=== PATIENT | male | born 1995 | race Caucasian/White ===

== ENCOUNTER → 2017-11-28 10:43 | Outpatient (REF) | payer MEDICAID, SELFPAY ==
[2017-11-28 14:01] LABS: Amphetamine/Metha Screen,Urine Negative ng/mL (<1000); Barbiturates Screen,Urine Negative ng/mL (<200); Benzodiazepines Screen,Urine Negative ng/mL (200); Cannabinoid Screen,Urine Negative ng/mL (<50); Cocaine Screen,Urine Negative ng/g (<300); Methadone Screen,Urine Negative ng/mL (<300); Opiate Screen,Urine Negative ng/mL (<300); Phencyclidine Screen,Urine Negative ng/mL (<25)
[2017-11-28 14:07] LABS: Basophils % 0.7 % (0.1-2.0); Eosinophils # 0.1 K/mm3 (0.0-0.4); Eosinophils % 3.5 % (0.1-12.0); Hematocrit 43.8 % (42.0-52.0); Hemoglobin 15.5 g/dL (14.1-18.0); Lymphocytes # 1.1 K/mm3 (0.7-4.5); Lymphocytes % 31.5 K/mm3 (10-50); Mean Corpuscular HGB Conc 35.4 g/dL (31.8-35.4); Mean Corpuscular Hemoglobin 32.4 pg (27.0-31.2); Mean Corpuscular Volume 91.7 fl (80-94); Mean Platelet Volume 10.1 fl (7.4-10.4); Monocytes # 0.2 K/mm3 (0.1-1.0); Monocytes % 6.2 % (1.7-9.3); Neutrophils % 58.1 % (37.0-80.0); Platelet Count 115 K/mm3 (142-424); Red Blood Count 4.78 M/mm3 (4.60-6.20); Red Cell Distribution Width 12.6 % (11.5-17.5); White Blood Count 3.5 K/mm3 (4.8-10.8)
[2017-11-28 15:02] LABS: Alanine Aminotransferase 19 U/L (12-78); Albumin Level 4.5 gm/dL (3.4-5.0); Albumin/Globulin Ratio 1.7 (1.1-1.8); Alkaline Phosphatase 83 U/L (46-116); Anion Gap 11.3 mEq/L (5-15); Aspartate Amino Transferase 14 U/L (15-37); Bilirubin,Total 1.1 mg/dL (0.2-1.0); Blood Urea Nitrogen 12 mg/dL (7-18); Calcium 9.4 mg/dL (8.5-10.1); Carbon Dioxide 29 mmol/L (21.0-32.0); Chloride 106 mmol/L (98-107); Creatinine,Serum 0.97 mg/dL (0.70-1.30); Estimated Glomerular Filt Rate 98 ml/min (>60); Free T4 (Free Thyroxine) 1.15 ng/dl (0.76-1.46); GFR (African American) 118 ML/MIN (>60); Globulin 2.7 gm/dl (1.3-3.2); Glucose 91 mg/dL (74-106); Potassium 4.3 mmoL/L (3.5-5.1); Sodium 142 mmol/L (136-145); Thyroid Stimulating Hormone 0.39 uIU/ml (0.358-3.740); Total Protein,Serum 7.2 gm/dL (6.4-8.2)
[2017-11-29 07:20] LABS: Hep A Ab, IgM Negative (Negative); Hepatitis B Core Antibody IgM Negative (Negative); Hepatitis B Surface Antigen Negative (Negative)
[2017-11-29 13:37] LABS: Hepatitis C Antibody <0.1 s/co ratio (0.0-0.9); Vitamin D 25 Hydroxy 31.6 ng/mL (30.0-100.0)
== END ==
LOC: LAB 10:43
PROVIDERS: Visit Provider Emergency Medicine
DX: R53.83 Other fatigue (principal); F32.9 Major depressive disorder, single episode, unspecified
CPT/HCPCS: 80053; 80074; 80305; 82652; 84439; 84443; 85025

== ENCOUNTER → 2019-04-24 11:08 | Outpatient (CLI) | payer SELFPAY ==
[2019-04-24 11:52] LABS: Apearance,Urine Clear (Clear); Bilirubin,Urine Negative (Negative); Blood, Urine Negative (Negative); Color,Urine Yellow (Yellow); Glucose,Urine (UA) Negative (Negative); Ketones,Urine Negative (Negative); Protein,Urine Negative (Negative); UTC Leukocyte Esterase,Urine Negative (Negative); UTC Nitrate,Urine Negative (Negative); Urobilinogen,Urine 0.2 EU/dl (0.2)
== END ==
PROVIDERS: Visit Provider Nurse Practitioner Family
DX: Z02.4 Encounter for examination for driving license (principal)
CPT/HCPCS: 81003

== ENCOUNTER 2020-07-06 12:45 | Emergency (ER) | payer MEDICAID, SELFPAY ==
[2020-07-06 12:50] VITALS: BP 144/95; PULSE 73; RESP 18; TEMP 36.7; O2SAT 98; BMI 28.2
[2020-07-06 13:09] VITALS: BP 151/95; PULSE 72; O2SAT 99
--- NOTE | 2020-07-06 13:10 | HMH.EDGENADL ---
ED Disposition Clinical Impression: Dry socket Disposition: Home, Self-Care Condition on Discharge: Good Instructions: DI for Dental Pain Additional Instructions: Hughes as prescribed for pain. See your dentist tomorrow as scheduled. Additional instructions for DENTAL PROBLEMS: See a dentist as soon as possible for further evaluation. Return immediately if you have an uncontrollable fever greater than 102 degrees, difficulty breathing or shortness of breath, persistent vomiting, or inability to swallow. Additional instructions for CONTROLLED SUBSTANCES: You have been prescribed a medication that is a controlled substance. Controlled substances include pain medications known as opiates and sedative nerve medications known as benzodiazepines. Tramadol, fioricet, and gabapentin are also controlled substances. Some common opiates include: Codeine (such as Tylenol #3) Hydrocodone (Vicodin, Lortab, Lorcet, Hughes) Oxycodone (Percocet, Percodan, Oxycodone, Oxy IR) Some common benzodiazepines include: Diazepam (Valium) Lorazepam (Ativan) Alprazolam (Xanax) Clonazepam (Klonopin) Oxazepam (Serax) All of these controlled substances are highly addictive and frequently abused. Misuse can and frequently does lead to addiction as well as overdose and . Medication should be stored in a locked cabinet or other secure storage unit. Do not store the medication in a motor vehicle. Short term supplies, 3 days or less, are prescribed because of the highly addictive nature of the medication. Any of the controlled substance medication NOT taken should be disposed of properly and NOT SAVED. The recommended method of disposing of unused medications is: Place the medicines in a sealable plastic bag. If the medicine is a solid, crush it or add water to dissolve it. Add something undesirable (cat litter, coffee grounds, etc.) Dispose of sealed bag in household trash Do not flush or pour unused medicines down a sink or drain. Controlled substances should not be shared, given away or sold. Because of the addictive nature and frequent abuse, these medications are sometimes stolen. These medications should be kept in a safe place where they cannot be stolen. Do not keep them in your car or purse. Lost or stolen prescriptions for controlled substances WILL NOT BE REFILLED in this emergency department, regardless of whether a police report was filed. Prescriptions: Hydrocod/Acet 5/325 mg [Hughes 5/325mg tablet] 1 tab PO Q6HP PRN #10 tab PRN Reason: Pain Transmission Status: Received by [facility] Referrals: Que Morrison MD [Primary Care Provider] - - Critical Care Critical Care Time: No Attestation: On 07/06/20, the high probability of a clinically significant, sudden or life threatening deterioration of the following system(s) required my full and direct attention, intervention and personal management. The time I documented below is in addition to time spent performing reported procedures but includes the following listed in this critical care notation. Medical Decision Making - Medical Records Medical records reviewed: Yes: I reviewed the patient's medical records. - [place] Inquiry Pt receiving controlled substance: Yes [place] was queried for this patient: Yes Reference #:: [id number] Risks and benefits of using a controlled substance: were discussed with pt by me Comment: 2 rxs. Hughes 12 tabs on 07/02/20 and 06/30/20 Vital Signs: 07/06/20 12:50 07/06/20 13:09 07/06/20 13:25 Temperature 98.0 F 98.0 F Temperature Source Oral Oral Pulse Rate 72 Pulse Rate [Radial] 73 72 Respiratory Rate 18 18 Blood Pressure 151/95 H Blood Pressure [Right Arm] 144/95 H 151/95 H Blood Pressure Mean [Right Arm] 111 113 Blood Pressure Source Automatic Cuff Blood Pressure Source [Right Arm] Manual Cuff/ Doppler Automatic Cuff Blood Pressure Position Sitting Blood Pressure Position [Right Arm] S
[2020-07-06 13:25] VITALS: BP 151/95; PULSE 72; RESP 18; TEMP 36.7; O2SAT 98
== END 2020-07-06 13:27 | disposition home or self-care (01) ==
PROVIDERS: Emergency Provider Emergency Medicine; PCP Family Medicine
DX: M27.3 Alveolitis of jaws (principal); F41.8 Other specified anxiety disorders; J45.909 Unspecified asthma, uncomplicated; Z79.899 Other long term (current) drug therapy
CPT/HCPCS: 99282

== ENCOUNTER 2020-10-06 09:35 | Emergency (ER) | payer OTHER, SELFPAY ==
[2020-10-06 09:46] VITALS: BP 161/96; PULSE 83; RESP 20; TEMP 36.7; O2SAT 98; BMI 28.4
--- NOTE | 2020-10-06 09:53 | HMH.EDUTC ---
[facility] [place] Disposition Clinical Impression: Exposure to COVID-19 virus Disposition: Home, Self-Care Condition on Discharge: Good Instructions: Preventing the Spread of Coronavirus Discharge Instructions Additional Instructions: Drink plenty of fluids. Take tylenol for pain or fever. Return if you begin to have difficulty breathing. Follow up with your regular doctor. GO TO THE ER FOR ANY WORSENING SYMPTOMS Referrals: Que Morrison MD [Primary Care Provider] - Forms: Work/School Release Time of Disposition: 09:55 Medical Decision Making - Medical Records Medical records reviewed: No: I reviewed the patient's medical records. - [place] Inquiry Pt receiving controlled substance: No Vital Signs: 10/06/20 09:46 10/06/20 09:55 Temperature 98.0 F 98.0 F Temperature Source Oral Pulse Rate 83 Pulse Rate [Right Brachial] 83 Respiratory Rate 20 20 Blood Pressure 161/96 H Blood Pressure [Right Arm] 161/96 H Blood Pressure Mean [Right Arm] 117 Blood Pressure Source [Right Arm] Automatic Cuff Blood Pressure Position [Right Arm] Sitting 02 Sat by Pulse Oximetry 98 Oxygen Delivery Method Room Air Orders (Tests/Meds): ORDERS Category Date Time Status Covid-19 Nasal PCR Sendout Ronald Routine Lab 10/06/20 09:[address] [facility] [place] HPI - General Stated complaint: exposure to covid Time Seen by Provider: 10/06/20 09:53 Mode of Arrival: Ambulatory Source of Information: Patient Limitations: No Limitations Description of Symptoms (Recalled from Triage Doc. by RN): PATIENT REQUESTING COVID TEST D/T EXPOSURE; DENIES SYMPTOMS HEENT Symptoms (Recalled from RN notes): No Resp Symptoms (Recalled from RN notes): No Skin Symptoms (Recalled from RN notes): No MS Symptoms (Recalled from RN notes): No Functional Status (Recalled from RN notes): WNL - History of Present Illness Provider Complaint: He states that his mother has covid. He has been around her a lot. He denies any symptoms. - Related Data Previous Rx's Medication Instructions Recorded clonazepam 0.5 mg tablet 0.5 mg PO BID #60 tab 08/08/18 escitalopram oxalate 10 mg tablet 10 mg PO QDAY #30 tab 08/08/18 levoFLOXacin [Levaquin 500mg 500 mg PO DAILY #7 tab 07/27/19 tab] Azithromycin [Z-Stanley 250mg Tab*] 250 mg PO UD DOSE PK #6 tab 11/01/19 Brompheniramine/Pseudoephed/Dm 5 ml PO Q6HP PRN #240 syrup 11/01/19 [Bromfed Dm Cough Syrup] Ondansetron [Zofran 4mg ODT] 4 mg PO Q8HP PRN #20 tab.rapdis 11/01/19 Oseltamivir Phosphate [Tamiflu 75 mg PO BID #10 cap 11/01/19 75mg Capsule] Hydrocod/Acet 5/325 mg [[place] 1 tab PO Q6HP PRN #10 tab 07/06/20 5/325mg tablet] Allergies Allergy/AdvReac Type Severity Reaction Status Date / Time Iodinated Contrast Media Allergy Intermediate I-HIVES Verified 08/08/18 08:30 [Iodinated Contrast Media - IV Dye] - Worker's Comp Is this a Worker's Comp case?: No [facility] History - Hepatitis A Screen Drug use history?: No High risk sexual behaviors?: No History of sexually transmitted infection?: No Currently employed?: No Childcare worker?: No Do you have indoor plumbing?: Yes Do you have electricity?: Yes Attestation statement:: This patient has been screened for Hepatitis A risk factors. I have reviewed the patient's past medical history: Yes Medical History: Reports:: Anxiety, Asthma, Depression Denies:: Cancer, Diabetes Mellitus Type 1, Diabetes Mellitus Type 2, MRSA Other Surgeries: Yes: Other. No: Organ Transplant Amputation: No Fractures: Yes Comment: screws in left leg and left femur - Social History Smoking Status: Never smoker Alcohol Intake: never Substance Use Type: denies use Occupational Status: other Housing: house - Psychiatric History Pschychiatric History:: Reports:: Anxiety, Depression Family Hx:: Hypertension, Cancer ROS Obtained: Yes All systems reviewed & no additional complaints - Constitutional Constitutional: Reports system revi
[2020-10-06 09:55] VITALS: BP 161/96; PULSE 83; RESP 20; TEMP 36.7; O2SAT 98
[2020-10-07 13:16] LABS: Covid-19 Nasal PCR Sendout Lex NOT DETECTED
== END 2020-10-06 09:58 | disposition home or self-care (01) ==
PROVIDERS: Emergency Provider Nurse Practitioner Family; PCP Family Medicine
DX: Z20.828 Contact with and (suspected) exposure to other viral communicable diseases (principal); F41.8 Other specified anxiety disorders; J45.909 Unspecified asthma, uncomplicated; Z79.899 Other long term (current) drug therapy
CPT/HCPCS: 99201; U0004

== ENCOUNTER 2021-01-22 21:22 | Emergency (ER) | payer OTHER, SELFPAY ==
[2021-01-22 21:24] VITALS: BP 145/76; PULSE 64; RESP 17; TEMP 36.8; O2SAT 98; BMI 27.3
[2021-01-22 21:49] VITALS: BMI 27.3
--- NOTE | 2021-01-22 22:00 | CT_ITS ---
PROCEDURE: CT ABDOMEN PELVIS W CON CLINICAL INDICATION: nausea, vomiting, diarrhea COMPARISON: CT CT ABDOMEN PELVIS WO CON from 07/26/2019 TECHNIQUE: IV Contrast: 75ML Isovue 370 Oral Contrast None Axial images obtained with sagittal and coronal reformats. All CT scans at the facility use one or more dose reduction, viz: automated exposure control, ma/kV adjustment per patient size (including targeted exams where dose is matched to indication, i.e. head), or iterative reconstruction technique. FINDINGS: LOWER THORAX: No acute finding ABDOMEN & PELVIS: The liver has an unremarkable appearance. There is splenomegaly at 16 cm. The gallbladder, adrenal glands, and pancreas appear unremarkable. No intestinal obstruction or free air. No evidence of appendicitis or diverticulitis. Scattered mildly prominent mesenteric lymph nodes are present. There is a mild amount of retained colonic feces. Small bowel gas pattern is unremarkable. No pelvic mass or abnormal fluid collection. Artifact is present from prior ORIF of the left proximal femur IMPRESSION: 1. Splenomegaly. 2. Mildly prominent mesenteric lymph nodes nonspecific but could be seen with mesenteric adenitis. Dictated by: Casey Centeno MD 01/23/2021 07:16 Casey Centeno MD in OV 01/23/2021 07:16
[2021-01-22 22:13] LABS: Basophils % 0.8 % (0.1-2.0); Eosinophils # 0.1 K/mm3 (0.0-0.4); Eosinophils % 3.7 % (0.1-12.0); Hemoglobin 15.6 g/dL (14.1-18.0); Lymphocytes % 25.5 % (10-50); Mean Corpuscular HGB Conc 34.5 g/dL (31.8-35.4); Mean Corpuscular Hemoglobin 31.4 pg (27.0-31.2); Mean Corpuscular Volume 90.9 fl (80-94); Mean Platelet Volume 8.2 fl (7.4-10.4); Monocytes # 0.3 K/mm3 (0.1-1.0); Monocytes % 8.5 % (1.7-9.3); Neutrophils # 2.4 K/mm3 (1.8-7.8); Neutrophils % 61.6 % (37.0-80.0); Platelet Count 123 K/mm3 (142-424); Red Blood Count 4.95 M/mm3 (4.60-6.20); White Blood Count 3.8 K/mm3 (4.8-10.8)
[2021-01-22 22:15] LABS: C-Reactive Protein 37.1 mg/L (0-4)
[2021-01-22 22:19] VITALS: BP 133/68; PULSE 62; RESP 16; O2SAT 95
--- NOTE | 2021-01-22 22:22 | HMH.EDNVD ---
ED Disposition Clinical Impression: Gastroenteritis, Thrombocytopenia, Splenomegaly Disposition: Home, Self-Care Condition on Discharge: Good Instructions: DI for Nausea -- Adult Additional Instructions: fluids and see pcp for follow up Prescriptions: ondansetron HCL [Zofran 4mg Tab] 4 mg PO TID #21 tab Transmission Status: Pending to [facility] Referrals: Dell Cortes MD [Primary Care Provider] - - Critical Care Critical Care Time: No Attestation: On 01/22/21, the high probability of a clinically significant, sudden or life threatening deterioration of the following system(s) required my full and direct attention, intervention and personal management. The time I documented below is in addition to time spent performing reported procedures but includes the following listed in this critical care notation. Medical Decision Making - Medical Records Medical records reviewed: Yes: I reviewed the patient's medical records. - [place] Inquiry Pt receiving controlled substance: No Vital Signs: 01/22/21 21:24 01/22/21 22:19 Temperature 98.3 F Temperature Source Oral Pulse Rate 62 Pulse Rate [Right Radial] 64 Respiratory Rate 17 16 Blood Pressure 133/68 Blood Pressure [Right Arm] 145/76 H Blood Pressure Mean [Right Arm] 99 Blood Pressure Source [Right Arm] Automatic Cuff Blood Pressure Position [Right Arm] Supine 02 Sat by Pulse Oximetry 98 95 Oxygen Delivery Method Room Air Room Air - Lab Data Lab results reviewed: Yes: I reviewed the patient's lab results. Lab Results 01/22/21 21:35: WBC 3.8 L, RBC 4.95, Hgb 15.6, Hct 45.0, MCV 90.9, MCH 31.4 H, MCHC 34.5, RDW 13.0, Plt Count 123 L, MPV 8.2, Neut % (Auto) 61.6, Lymph % (Auto) 25.5, [place] % (Auto) 8.5, Eos % (Auto) 3.7, Baso % (Auto) 0.8, Neut # (Auto) 2.4, Lymph # (Auto) 1.0, [place] # (Auto) 0.3, Eos # (Auto) 0.1, Baso # (Auto) 0.0, ESR 16 H 01/22/21 21:35: C-Reactive Protein 37.1 H, Procalcitonin 0.300 01/22/21 21:35: Sodium 139, Potassium 3.8, Chloride 104, Carbon Dioxide 27, Anion Gap 11.8, BUN 16, Creatinine 0.90, Estimated Creat Clear 142, Estimated GFR 104, Est GFR ( Amer) 125, Glucose 114 H, Calcium 9.5, Total Bilirubin 0.7, AST 46, ALT 42, Alkaline Phosphatase 87, Total Protein 7.2, Albumin 4.5, Globulin 2.7, Albumin/Globulin Ratio 1.7 01/22/21 21:35: Amylase 43, Lipase 43 Result diagrams: 01/22/21 21:35 01/22/21 21:35 Orders (Tests/Meds): ED MEDICATIONS Generic Name Dose Route Start Last Admin Trade Name Freq PRN Reason Stop Dose Admin Sodium Chloride 1,000 mls @ 999 mls/hr 01/22/21 22:00 01/22/21 21:51 Sod Chlor 0.9% 1000ml Bag IV 01/22/21 23:00 999 mls/hr .Q1H1M JERZY Administration Sodium Chloride 1,000 mls @ 999 mls/hr 01/22/21 22:45 01/22/21 22:51 Sod Chlor 0.9% 1000ml Bag IV 01/22/21 23:45 999 mls/hr .Q1H1M JERZY Administration Discontinued Medications Generic Name Dose Route Start Last Admin Trade Name Freq PRN Reason Stop Dose Admin Methylprednisolone Sodium Succinate 125 mg 01/22/21 22:34 01/22/21 22:35 Methylprednisolone Sod Succ 125mg Vial IV 01/22/21 22:35 125 mg ONCE ONE Administration Ondansetron HCl 4 mg 01/22/21 21:51 01/22/21 21:52 Ondansetron 4mg/2ml Vial IV 01/22/21 21:52 4 mg ONCE ONE Administration ORDERS Category Date Time Status CT abdomen pelvis w con Stat Cat Scan 01/22/21 22:00 Ordered Diarrhea 23 Panel, PCR Stat Lab 01/22/21 21:59 Ordered Peripheral Smear Review Routine Lab 01/22/21 23:49 Ordered UA [Urinalysis and Microscopic] Stat Lab 01/22/21 23:35 Received - CT Data CT Scan: Abdomen, Pelvis Time Received: 23:[address] Reviewed: Yes: I have viewed the radiologist's interpretation Preliminary Findings: Abnormal (see report ) Medical Decision Narrative: has nonspecific gastroenteritis with nl infl markers and unable to give sample at this time - has low plt ct and splenomegaly Nausea/Vomiting/Diarrhea HPI - G
[2021-01-22 22:23] LABS: Chloride 104 mmol/L (98-107); Sodium 139 mmol/L (136-145)
[2021-01-22 22:24] LABS: Potassium 3.8 mmoL/L (3.5-5.1)
[2021-01-22 22:26] LABS: Alanine Aminotransferase 42 U/L (12-78); Albumin Level 4.5 g/dl (3.5-5.0); Albumin/Globulin Ratio 1.7 (1.1-1.8); Alkaline Phosphatase 87 U/L (38-126); Anion Gap 11.8 mEq/L (5-15); Aspartate Amino Transferase 46 U/L (17-59); Bilirubin,Total 0.7 mg/dl (0.2-1.3); Blood Urea Nitrogen 16 mg/dl (9-20); Carbon Dioxide 27 mmol/L (22.0-30.0); Creatinine Clearance Estimated 142 mL/min (50-200); Estimated Glomerular Filt Rate 104 ml/min (>60); GFR (African American) 125 ML/MIN (>60); Globulin 2.7 g/dL (1.3-3.2); Total Protein,Serum 7.2 g/dl (6.3-8.2)
[2021-01-22 22:27] LABS: Calcium 9.5 mg/dl (8.4-10.2); Glucose 114 mg/dl (74-100)
[2021-01-22 22:47] LABS: Amylase 43 U/L (30-110)
[2021-01-22 22:48] LABS: Lipase 43 U/L (23-300)
[2021-01-22 22:53] LABS: Erythrocyte Sedimentation Rate 16 mm/hr (0-15)
[2021-01-22 23:43] LABS: Microscopic, Urine URINE MICROSCOPIC (MICROSCOPIC)
[2021-01-22 23:49] LABS: Appearance,Urine CLEAR (Clear); Blood, Urine Negative (Negative); Color,Urine YELLOW (Yellow); Glucose,Urine (UA) Negative (Negative); Ketones,Urine Negative (Negative); Leukocyte Esterase,Urine Negative (Negative); Nitrate,Urine Negative (Negative); Protein,Urine Negative (Negative); Specific Gravity, Urine <= 1.005 (1.005-1.030)
[2021-01-23 00:02] LABS: Bilirubin,Urine Negative (Negative)
[2021-01-23 00:11] VITALS: BP 125/84; PULSE 67; RESP 16; TEMP 36.7; O2SAT 98
[2021-01-23 00:38] LABS: WBC,Urine Occasional #/hpf (0-3)
[2021-01-24 23:54] LABS: Peripheral Smear Review Scanned Result
== END 2021-01-23 00:14 | disposition home or self-care (01) ==
PROVIDERS: Emergency Provider Emergency Medicine; PCP Emergency Medicine
DX: K52.9 Noninfective gastroenteritis and colitis, unspecified (principal); D69.6 Thrombocytopenia, unspecified; R16.1 Splenomegaly, not elsewhere classified; F41.8 Other specified anxiety disorders; J45.909 Unspecified asthma, uncomplicated; Z87.891 Personal history of nicotine dependence
CPT/HCPCS: 74177; 80053; 81001; 82150; 83690; 84145; 85025; 85651; 86140; 96365; 96366; 96375; 99283; J2405; Q9967

== ENCOUNTER → 2021-02-26 10:59 | Outpatient (CLI) | payer OTHER, SELFPAY ==
[2021-02-26 11:18] LABS: Eosinophils # 0.4 K/mm3 (0.0-0.4); Eosinophils % 9.3 % (0.1-12.0); Hematocrit 45.7 % (42.0-52.0); Hemoglobin 15.8 g/dL (14.1-18.0); Lymphocytes # 1.8 K/mm3 (0.7-4.5); Lymphocytes % 40.5 % (10-50); Mean Corpuscular HGB Conc 34.5 g/dL (31.8-35.4); Mean Corpuscular Hemoglobin 31.9 pg (27.0-31.2); Mean Corpuscular Volume 92.4 fl (80-94); Mean Platelet Volume 8.5 fl (7.4-10.4); Monocytes # 0.3 K/mm3 (0.1-1.0); Neutrophils # 1.8 K/mm3 (1.8-7.8); Neutrophils % 42.2 % (37.0-80.0); Platelet Count 127 K/mm3 (142-424); Red Blood Count 4.95 M/mm3 (4.60-6.20); Red Cell Distribution Width 13.3 % (11.5-17.5); White Blood Count 4.4 K/mm3 (4.8-10.8)
[2021-02-26 11:50] LABS: Chloride 102 mmol/L (98-107); Sodium 138 mmol/L (136-145)
[2021-02-26 11:53] LABS: Alanine Aminotransferase 37 U/L (12-78); Albumin Level 4.6 g/dl (3.5-5.0); Albumin/Globulin Ratio 2.2 (1.1-1.8); Alkaline Phosphatase 78 U/L (38-126); Aspartate Amino Transferase 43 U/L (17-59); Bilirubin,Total 0.5 mg/dl (0.2-1.3); Blood Urea Nitrogen 10 mg/dl (9-20); Carbon Dioxide 25 mmol/L (22.0-30.0); Estimated Glomerular Filt Rate 92 ml/min (>60); GFR (African American) 111 ML/MIN (>60); Globulin 2.1 g/dL (1.3-3.2); Total Protein,Serum 6.7 g/dl (6.3-8.2)
[2021-02-26 11:54] LABS: Calcium 9.7 mg/dl (8.4-10.2); Glucose 84 mg/dl (74-100)
[2021-02-26 13:03] LABS: Folate 5.52 ng/mL; Lactate Dehydrogenase 204 U/L (313-618)
[2021-02-26 14:43] LABS: Vitamin B12 319 pg/mL (239-931)
== END ==
PROVIDERS: Visit Provider Internal Medicine Medical Oncology
DX: D64.9 Anemia, unspecified (principal)
CPT/HCPCS: 36415; 80053; 82607; 82746; 83615; 85025

== ENCOUNTER 2021-03-31 19:59 | Emergency (ER) | payer OTHER, SELFPAY ==
[2021-03-31 20:05] VITALS: BP 129/82; PULSE 63; RESP 19; TEMP 36.6; O2SAT 98; BMI 26.6
--- NOTE | 2021-03-31 20:27 | HMH.EDUTC ---
[facility] [place] Disposition Clinical Impression: Contact dermatitis Qualifiers: Contact dermatitis type: unspecified Contact dermatitis trigger: unspecified trigger Qualified Code(s): L25.9 - Unspecified contact dermatitis, unspecified cause Disposition: Home, Self-Care Condition on Discharge: Good Instructions: Poisonous Plants: [place], [place], and [place]: Beware the Oils, Poison [place], Poison [place], Poison [place], DI for Contact Dermatitis Additional Instructions: Try to avoid what ever you was exposed to that may have caused the rash Start oral Steriods tomorrow Return if needed Over the counter Benadryl may help with itching and rash Follow up with Family Doctor if no improvement or any worsening of symptoms Straight to ER if any life threatening symptoms Prescriptions: methylPREDNISolone [Medrol 4mg tab] 4 mg PO DIRECTED #21 tab Transmission Status: Received by [facility] Referrals: Dell Cortes MD [Primary Care Provider] - Time of Disposition: 20:42 Medical Decision Making - [place] Inquiry Pt receiving controlled substance: No [place] was queried for this patient: No Vital Signs: 03/31/21 20:05 03/31/21 20:47 Temperature 97.8 F 97.8 F Temperature Source Oral Pulse Rate 63 Pulse Rate [Right Brachial] 63 Respiratory Rate 19 19 Blood Pressure 129/82 Blood Pressure [Right Arm] 129/82 Blood Pressure Mean [Right Arm] 97 Blood Pressure Source [Right Arm] Automatic Cuff Blood Pressure Position [Right Arm] Sitting 02 Sat by Pulse Oximetry 98 Oxygen Delivery Method Room Air Orders (Tests/Meds): ED MEDICATIONS Discontinued Medications Generic Name Dose Route Start Last Admin Trade Name Artieq PRN Reason Stop Dose Admin Methylprednisolone Sodium Succinate 125 mg 03/31/21 20:31 03/31/21 20:41 Methylprednisolone Sod Succ 125mg Vial IM 03/31/21 20:32 125 mg ONCE ONE Administration [facility] [place] HPI - General Stated complaint: rash Time Seen by Provider: 03/31/21 20:27 Mode of Arrival: Ambulatory Source of Information: Patient Limitations: No Limitations Description of Symptoms (Recalled from Triage Doc. 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 [employer] and unsure what he may have got into State that he noticed rash on both his arms about 3 days ago and the rash has spread and very itchy States that he is not sure if it may be poison erna or not - Related Data Previous Rx's Medication Instructions Recorded ondansetron HCL [Zofran 4mg Tab] 4 mg PO TID #21 tab 01/22/21 gabapentin 100 mg capsule 100 mg PO HS #30 cap 01/27/21 trazodone 50 mg tablet 50 mg PO HS #30 tab 01/27/21 diclofenac sodium 1 % topical gel 2 g TOPICAL QID #100 g 02/24/21 lidocaine 5 % topical patch 1 patch TOPICAL DAILY #30 each 02/24/21 meloxicam 15 mg tablet 15 mg PO DAILY #30 tab 02/24/21 trazodone 50 mg tablet 50 mg PO HS PRN #90 tab 02/24/21 methylPREDNISolone [Medrol 4mg 4 mg PO DIRECTED #21 tab 03/31/21 tab] Allergies Allergy/AdvReac Type Severity Reaction Status Date / Time No Known Allergies Allergy Verified 02/26/21 09:58 - Worker's Comp Is this a Worker's Comp case?: No [facility] History - Hepatitis A Screen Drug use history?: No High risk sexual behaviors?: No History of sexually transmitted infection?: No Currently employed?: No Childcare worker?: No Do you have indoor plumbing?: Yes Do you have electricity?: Yes Attestation statement:: This patient has been screened for Hepatitis A risk factors. I have reviewed the patient's past medical history: Yes Medical History: Reports:: Anxiety, Asthma, Depression Denies:: Cancer, Diabetes Mellitus Type 1,
[2021-03-31 20:47] VITALS: BP 129/82; PULSE 63; RESP 19; TEMP 36.6
== END 2021-03-31 20:50 | disposition home or self-care (01) ==
PROVIDERS: Emergency Provider Nurse Practitioner; PCP Emergency Medicine
DX: L23.7 Allergic contact dermatitis due to plants, except food (principal); J45.909 Unspecified asthma, uncomplicated; F41.8 Other specified anxiety disorders
CPT/HCPCS: 96372; 99202; G0463

== ENCOUNTER 2021-10-02 21:53 | Emergency (ER) | payer OTHER, SELFPAY ==
[2021-10-02 21:54] VITALS: BP 140/84; PULSE 80; RESP 16; TEMP 36.8; O2SAT 99; BMI 25.8
--- NOTE | 2021-10-02 22:39 | XR_ITS ---
PROCEDURE INFORMATION: Exam: XR Left Knee Exam date and time: 10/02/2021 10:39 PM Age: 26 years old Clinical indication: Pain; Knee; Left; Additional info: Non injury TECHNIQUE: Imaging protocol: XR Left knee. Views: 3 views. COMPARISON: No relevant prior studies available. FINDINGS: Bones/joints: The femoral casandra is in place. No complicating features. No malalignment. No fracture. Soft tissues: Some osseous appearing calcification seen above the greater trochanter could represent some heterotopic bone. IMPRESSION: No evidence of acute osseous abnormality
--- NOTE | 2021-10-02 22:39 | XR_ITS ---
PROCEDURE INFORMATION: Exam: XR Left Femur Exam date and time: 10/02/2021 10:39 PM Age: 26 years old Clinical indication: Pain; Hip and thigh; Left; Prior surgery; Surgery date: 6+ months; Surgery type: Femoral casandra; Additional info: Pain, non injury TECHNIQUE: Imaging protocol: XR Left femur. Views: 2 views. COMPARISON: CT ABDOMEN PELVIS W CON 01/22/2021 10:27 PM FINDINGS: Bones/joints: The femoral casandra is in place. No complicating features. No malalignment. No fracture. Soft tissues: Some osseous appearing calcification seen above the greater trochanter could represent some heterotopic bone. IMPRESSION: No evidence of acute osseous abnormality
--- NOTE | 2021-10-02 22:55 | HMH.EDEXTP ---
ED Disposition Clinical Impression: Knee pain, left Qualifiers: Chronicity: acute Qualified Code(s): M25.562 - Pain in left knee Disposition: Home, Self-Care Condition on Discharge: Good Instructions: DI for Knee Pain Additional Instructions: see pcp for follow up and ortho Prescriptions: Meloxicam [Mobic 15 mg tab] 15 mg PO DAILY #10 tab Transmission Status: Pending to [facility] Referrals: Dell Cortes MD [Primary Care Provider] - Kasi Curran JR, MD [Physician] - - Critical Care Critical Care Time: No Attestation: On 10/02/21, the high probability of a clinically significant, sudden or life threatening deterioration of the following system(s) required my full and direct attention, intervention and personal management. The time I documented below is in addition to time spent performing reported procedures but includes the following listed in this critical care notation. Medical Decision Making - Medical Records Medical records reviewed: Yes: I reviewed the patient's medical records. - [place] Inquiry Pt receiving controlled substance: No Vital Signs: 10/02/21 21:54 Temperature 98.2 F Temperature Source Oral Pulse Rate [Right] 80 Respiratory Rate 16 Blood Pressure [Right Arm] 140/84 Blood Pressure Mean [Right Arm] 102 Blood Pressure Source [Right Arm] Automatic Cuff 02 Sat by Pulse Oximetry 99 Oxygen Delivery Method Room Air Orders (Tests/Meds): ORDERS Category Date Time Status XR femur LT 2V Stat Exams 10/02/21 22:39 Taken XR knee LT 3V Stat Exams 10/02/21 22:39 Taken - Radiology Data #1 Image(s): Femur, Knee Image Reviewed: Yes I reviewed the patient's radiology image Preliminary Findings: No Fracture Seen (s/p orif) Medical Decision Narrative: please see pcp and ortho for follow up Extremity Problem HPI - General Chief complaint: Extremity Problem,Nontraumatic Stated complaint: left knee pain Time Seen by Provider: 10/02/21 22:00 Mode of Arrival: Family Vehicle Source of Information: Patient, Medical Record Limitations: No Limitations Description of Symptoms (Recalled from ER Triage Doc. by RN): Pt c/o Left knee pain. Pt reports the pain began ~ 4days ago. He has tried hot shower, Motrin, ice pack, and rest but none of these have helped. Pt reports he had a casandra and screws placed 12 yrs ago. Pt's mother is concerned a screw has migrated. He denies any fever, chills, redness, or swelling to knee. Pt reports the pain is worse when he walks. Pt states feels like it is grinding glass on top of my knee up my thigh . He denies any trauma or falls recently. Peipheral pulses 2+, no edema or redness noted. - History of Present Illness HPI Narrative: atraumatic lt knee pain over the last few days - pain with mov and wt bearing - no hip pain-no fever or other c/o MD Complaint: extremity pain Onset (ago): day(s) Consistency: constant Location: left, knee Exacerbating factors: range of motion, weight bearing Associated symptoms: denies other symptoms - Related Data Previous Rx's Medication Instructions Recorded trazodone 50 mg tablet 50 mg PO HS PRN #90 tab 02/24/21 Meloxicam [Mobic 15 mg tab] 15 mg PO DAILY #10 tab 10/02/21 Allergies Allergy/AdvReac Type Severity Reaction Status Date / Time No Known Allergies Allergy Verified 02/26/21 09:58 [facility] History - Hepatitis A Screen Drug use history?: No High risk sexual behaviors?: No History of sexually transmitted infection?: No Currently employed?: No Childcare worker?: No Do you have indoor plumbing?: Yes Do you have electricity?: Yes Attestation statement:: This patient has been screened for Hepatitis A risk factors. I have reviewed the patient's past medical history: Yes Medical History: Reports:: Anxiety, Asthma, Depression Denies:: Cancer, Diabetes Mellitus Type 1, Diabetes Mellitus Type 2, MRSA Other Surgeries: Yes: Other. No: Organ Transplant Amputation: No Fract
[2021-10-02 23:16] VITALS: BP 134/75; PULSE 79; RESP 16; TEMP 36.8; O2SAT 99
== END 2021-10-02 23:17 | disposition home or self-care (01) ==
PROVIDERS: Emergency Provider Emergency Medicine; PCP Emergency Medicine
DX: M25.562 Pain in left knee (principal); F41.8 Other specified anxiety disorders; J45.909 Unspecified asthma, uncomplicated
CPT/HCPCS: 73552; 73562; 99282

== ENCOUNTER 2021-11-17 14:47 | Emergency (ER) | payer OTHER, SELFPAY ==
[2021-11-17 15:59] VITALS: BP 143/88; PULSE 102; RESP 19; TEMP 37.7; O2SAT 98; BMI 27.4
--- NOTE | 2021-11-17 16:09 | HMH.EDUTC ---
[facility] [place] Disposition Clinical Impression: Viral upper respiratory illness Disposition: Home, Self-Care Condition on Discharge: Good Instructions: DI for Fever (Symptom) -- Adult, DI for COVID-19 (Suspected or Confirmed ), Preventing the Spread of Coronavirus Discharge Instructions Additional Instructions: *Monitor Temp, Over the counter Motrin or Tylenol as directed/as needed Tylenol every 4 hours and Motrin every 6 hours (as long as your family doctor has told you that you can take it) for fever or pain. and straight to ER if unable to lower temp less than 101.0 after medication given *Warm salt water gargles may help to soothe the throat *Throat Lozenges *Warm fluids like tea with honey may help to soothe the throat *Sleep elevated *Humidifier/Vaporizer *Bromfed may cause drowsiness. Know how it effects you (your child) before driving, caring for small child, or sending your child to school. Not other antihistamines/allergy medications while taking bromfed Follow up IMMEDIATELY for new or worsening symptoms or no Noticeable improvement over the next 48-72 hours. 911 for difficulty breathing or swallowing You were tested for today for COVID19 your test result should be back in the next 24-48 hours, you check your results on the [facility] my health portal if you have trouble logging on or seeing your results you may call You was given a handout with instructions for Self Quarantine and Self isolation for while you wait on test results and what to do if they are positive If you are positive the Health Dept will be contacting you also Make sure to take your Vitamins Vit. C Vit D and Zinc if you can take them Prescriptions: Brompheniramine/Pseudoephed/Dm [Bromfed Dm Cough Syrup] 5 - 10 ml PO Q46H PRN #200 ml PRN Reason: Cough Transmission Status: Pending to [facility] Ondansetron [Zofran 4mg ODT] 4 mg PO TIDP PRN #10 tab PRN Reason: Nausea Transmission Status: Pending to [facility] Referrals: Dell Cortes MD [Primary Care Provider] - As needed Forms: Work/School Release Time of Disposition: 16:18 Medical Decision Making - [place] Inquiry Pt receiving controlled substance: No [place] was queried for this patient: No Vital Signs: 11/17/21 15:59 Temperature 99.8 F H Temperature Source Oral Pulse Rate [Right Radial] 102 H Respiratory Rate 19 Blood Pressure [Right Arm] 143/88 H Blood Pressure Mean [Right Arm] 106 Blood Pressure Source [Right Arm] Automatic Cuff Blood Pressure Position [Right Arm] Sitting 02 Sat by Pulse Oximetry 98 Oxygen Delivery Method Room Air - Lab Data Lab results reviewed: Yes: I reviewed the patient's lab results. Orders (Tests/Meds): ORDERS Category Date Time Status Covid-19 Nasal PCR ([facility]) Routine Lab 11/17/21 15:50 Received [facility] [place] HPI - General Stated complaint: h/a, fever Time Seen by Provider: 11/17/21 16:09 Mode of Arrival: Ambulatory Source of Information: Patient Limitations: No Limitations Description of Symptoms (Recalled from Triage Doc. by RN): C/O fever, bodyaches, nausea, FALCON since last night HEENT Symptoms (Recalled from RN notes): Yes (FALCON) Resp Symptoms (Recalled from RN notes): No Skin Symptoms (Recalled from RN notes): No MS Symptoms (Recalled from RN notes): Yes (bodyaches) Functional Status (Recalled from RN notes): n/a - History of Present Illness Provider Complaint: Patient states that he started feeling bad last night States that he was having chills all night and his said he felt hot to the touch States that today he was still feeling achy all over with headache, chills, bodyaches and nausea so he came in to get checked for the flu and COVID - Related Data Previous Rx's Medication Instructions Recorded trazodone 50 mg tablet 50 mg PO HS PRN #90 tab 02/24/21 Meloxicam [Mobic 15 mg tab] 15 mg PO DAILY #10 tab 10/02/21 Brompheniramine/Pseudoephed/Dm 5 - 10 ml PO Q46H PRN #200 ml 11/17/21 [Bromfed Dm Cough Syrup]
[2021-11-17 16:11] LABS: UTC Influenza A Antigen Negative (Negative)
[2021-11-17 16:12] LABS: UTC Influenza B Antigen Negative (Negative)
[2021-11-17 16:23] VITALS: BP 143/88; PULSE 102; RESP 19; TEMP 37.7; O2SAT 98
== END 2021-11-17 16:24 | disposition home or self-care (01) ==
PROVIDERS: Emergency Provider Nurse Practitioner; PCP Emergency Medicine
DX: U07.1 COVID-19 (principal); J06.9 Acute upper respiratory infection, unspecified
CPT/HCPCS: 87804; 99202; C9803; G0463; U0003; U0005

== ENCOUNTER 2022-02-13 19:25 | Emergency (ER) | payer OTHER, SELFPAY ==
[2022-02-13 20:25] VITALS: BP 169/98; PULSE 108; RESP 16; TEMP 37.1; O2SAT 96; BMI 26.6
[2022-02-13 20:33] LABS: UTC Influenza A Antigen Positive (Negative); UTC Influenza B Antigen Negative (Negative)
[2022-02-13 20:41] VITALS: BP 169/98; PULSE 108; RESP 16; TEMP 37.1
--- NOTE | 2022-02-13 20:47 | HMH.EDUTC ---
[facility] [place] Disposition Clinical Impression: Influenza A Disposition: Home, Self-Care Condition on Discharge: Good Instructions: Influenza, DI for Influenza -- Adult Additional Instructions: Drink plenty of fluids. Take tylenol or ibuprofen for pain or fever. Take the medications as directed. Follow up with your regular doctor. GO TO THE ER FOR ANY WORSENING SYMPTOMS The cough medication (promethazine dm) will make you drowsy, so don't drive or operate heavy machinery after taking it. Prescriptions: Promethazine/Dextromethorphan [Promethazine-Dm Syrup] 5 ml PO Q6HP PRN #240 ml PRN Reason: Cough Transmission Status: Received by [facility] Ondansetron [Zofran 4mg ODT] 4 mg PO Q8HP PRN #12 tab PRN Reason: Nausea Transmission Status: Received by [facility] Oseltamivir Phosphate [Tamiflu 75mg Capsule] 75 mg PO BID #10 cap Transmission Status: Received by [facility] Referrals: Dell Cortes MD [Primary Care Provider] - Time of Disposition: 21:09 Medical Decision Making - Medical Records Medical records reviewed: No: I reviewed the patient's medical records. - [place] Inquiry Pt receiving controlled substance: No Vital Signs: 02/13/22 20:25 02/13/22 20:41 Temperature 98.8 F 98.8 F Temperature Source Oral Pulse Rate 108 H Pulse Rate [Left] 108 H Respiratory Rate 16 16 Blood Pressure 169/98 H Blood Pressure [Right Arm] 169/98 H Blood Pressure Mean [Right Arm] 121 02 Sat by Pulse Oximetry 96 - Lab Data Lab results reviewed: Yes: I reviewed the patient's lab results. Lab Results 02/13/22 20:32: Influenza Type A Ag Positive A, Influenza Type B Ag Negative [facility] [place] HPI - General Stated complaint: fever Time Seen by Provider: 02/13/22 20:48 Mode of Arrival: Ambulatory Source of Information: Patient Limitations: No Limitations Description of Symptoms (Recalled from Triage Doc. by RN): pt c/o a fever and fatigue since last night. HEENT Symptoms (Recalled from RN notes): No Resp Symptoms (Recalled from RN notes): No Skin Symptoms (Recalled from RN notes): No MS Symptoms (Recalled from RN notes): No Functional Status (Recalled from RN notes): wnl - History of Present Illness Provider Complaint: He states that since yesterday he has been feeling bad. Today, he has ran a fever up to 101. He has a dry cough and he has had nausea and body aches. - Related Data Previous Rx's Medication Instructions Recorded trazodone 50 mg tablet 50 mg PO HS PRN #90 tab 02/24/21 Meloxicam [Mobic 15 mg tab] 15 mg PO DAILY #10 tab 10/02/21 Brompheniramine/Pseudoephed/Dm 5 - 10 ml PO Q46H PRN #200 ml 11/17/21 [Bromfed Dm Cough Syrup] Ondansetron [Zofran 4mg ODT] 4 mg PO TIDP PRN #10 tab 11/17/21 Ondansetron [Zofran 4mg ODT] 4 mg PO Q8HP PRN #12 tab 02/13/22 Oseltamivir Phosphate [Tamiflu 75 mg PO BID #10 cap 02/13/22 75mg Capsule] Promethazine/Dextromethorphan 5 ml PO Q6HP PRN #240 ml 02/13/22 [Promethazine-Dm Syrup] Allergies Allergy/AdvReac Type Severity Reaction Status Date / Time No Known Allergies Allergy Verified 02/26/21 09:58 - Worker's Comp Is this a Worker's Comp case?: No [facility] History - Hepatitis A Screen Drug use history?: No High risk sexual behaviors?: No History of sexually transmitted infection?: No Currently employed?: No Childcare worker?: No Do you have indoor plumbing?: Yes Do you have electricity?: Yes Attestation statement:: This patient has been screened for Hepatitis A risk factors. I have reviewed the patient's past medical history: Yes Medical History: Reports:: Anxiety, Asthma, Depression Denies:: Cancer, Diabetes Mellitus Type 1, Diabetes Mellitus Type 2, MRSA Other Surgeries: Yes: Other. No: Organ Transplant Amputation: No Fractures: Yes Comment: screws in left leg and left femur - Social History Smoking Status: Never smoker Tobacco Type: smokeless tobacco # Packs/Day (cigarette
== END 2022-02-13 21:19 | disposition home or self-care (01) ==
PROVIDERS: Emergency Provider Nurse Practitioner Family; PCP Emergency Medicine
DX: J10.1 Influenza due to other identified influenza virus with other respiratory manifestations (principal); R53.82 Chronic fatigue, unspecified; J45.909 Unspecified asthma, uncomplicated; F32.A Depression, unspecified; F41.9 Anxiety disorder, unspecified; F17.290 Nicotine dependence, other tobacco product, uncomplicated; Z82.49 Family history of ischemic heart disease and other diseases of the circulatory system; Z80.9 Family history of malignant neoplasm, unspecified
CPT/HCPCS: 87804; 99213; G0463

== ENCOUNTER 2022-06-08 19:40 | Emergency (ER) | payer OTHER, SELFPAY ==
[2022-06-08 19:42] VITALS: BP 143/99; PULSE 83; RESP 16; TEMP 36.8; O2SAT 100; BMI 27.4
--- NOTE | 2022-06-08 19:54 | HMH.EDGENADL ---
ED Disposition Clinical Impression: Abscess Disposition: Home, Self-Care Condition on Discharge: Good Instructions: DI for Skin Abscess Additional Instructions: You have been evaluated for abscess on the left leg. Please keep packing in until it falls out, about 24 to 48 hours. Wound with warm soapy water twice daily. Take Bactrim as prescribed. Follow-up with your primary care doctor for wound recheck in the next few days. Return to the emergency department at once for any new or worsening symptoms, fevers, wound drainage, spreading redness, any other concerns. Prescriptions: Sulfamethoxazole/Trimethoprim [Sulfamethoxazole-Tmp Ds Tablet*] 1 tab PO BID #14 tab Transmission Status: Pending to [facility] Referrals: Dell Cortes MD [Primary Care Provider] - Forms: Work/School Release Time of Disposition: 20:52 - Critical Care Critical Care Time: No Attestation: On 06/08/22, the high probability of a clinically significant, sudden or life threatening deterioration of the following system(s) required my full and direct attention, intervention and personal management. The time I documented below is in addition to time spent performing reported procedures but includes the following listed in this critical care notation. Medical Decision Making - Medical Records Medical records reviewed: Yes: I reviewed the patient's medical records. - [place] Inquiry Pt receiving controlled substance: No Vital Signs: 06/08/22 19:42 Temperature 98.3 F Temperature Source Oral Pulse Rate [Left Radial] 83 Respiratory Rate 16 Blood Pressure [Left Arm] 143/99 H Blood Pressure Mean [Left Arm] 113 Blood Pressure Position [Left Arm] Sitting 02 Sat by Pulse Oximetry 100 Oxygen Delivery Method Room Air Orders (Tests/Meds): ED MEDICATIONS Discontinued Medications Generic Name Dose Route Start Last Admin Trade Name Magda PRN Reason Stop Dose Admin Epinephrine HCl 1 mg 06/08/22 19:54 06/08/22 20:06 Epinephrine 1 Mg/Ml Ampul TOPICAL 06/08/22 19:55 1 mg ONCE ONE Administration Lidocaine HCl 5 ml 06/08/22 19:54 06/08/22 20:06 Lidocaine 1% 10ml Mdv SQ 06/08/22 19:55 5 ml ONCE ONE Administration Lidocaine HCl 1 ml 06/08/22 19:54 06/08/22 20:06 Lidocaine 4% Topical Soln 1ml TP 06/08/22 19:55 1 ml ONCE ONE Administration Medical Decision Narrative: In summary this is a 26-year-old male presenting to the emergency department with abscess to the left posterior calf. Patient clinically stable on arrival. Vital signs within normal limits. Let gel applied topically. Skin anesthetized with 1% lidocaine. Incision made with an 11 blade scalpel. Expressed a large amount of purulent material. Abscess cavity packed. Patient given first dose of Bactrim in the emergency department. Will prescribe 7 days of antibiotics. Counseled on wound management. Counseled on the importance of PCP follow-up. Given return precautions. Stable for discharge. General Adult HPI - General Stated complaint: boil on L LEG Time Seen by Provider: 06/08/22 19:54 Mode of Arrival: Ambulatory Source of Information: Patient Limitations: No Limitations - History of Present Illness HPI narrative: 26-year-old male presenting to the emergency department with abscess. It is located on the back of his left calf, near his knee. He noticed it 2 days ago. It was initially red, swollen, painful. Today the pain is worse. It has a scab near the center. Has not drained. No medications prior to arrival. Most recent tetanus vaccine was about 1 year ago. 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 Unsure if he was bit or stung by something. Denies history of frequent abscesses. Has not been told that he is ever had MRSA. No fevers, chills, nausea, vomiting. No other wounds on his skin. - Related Data Previous Rx's Medication Instructions Recorded trazodone 50 mg tablet 50 mg PO HS PRN #90 tab 02/24/21 Meloxicam [Mobic 15
[2022-06-08 20:55] VITALS: BP 133/71; PULSE 77; RESP 16; TEMP 36.9; O2SAT 100
== END 2022-06-08 21:01 | disposition home or self-care (01) ==
PROVIDERS: Emergency Provider Emergency Medicine; PCP Emergency Medicine
DX: L02.416 Cutaneous abscess of left lower limb (principal)
CPT/HCPCS: 10060; 99283

== ENCOUNTER 2022-06-16 17:10 | Emergency (ER) | payer OTHER, SELFPAY ==
--- NOTE | 2022-06-16 17:11 | PC.NURSE ---
171- trauma alert called [id number]-- ER at [facility]
--- NOTE | 2022-06-16 17:12 | PC.NURSE ---
c-collar placed on pt
--- NOTE | 2022-06-16 17:17 | PC.NURSE ---
trauma alert cancelled per ER MD
[2022-06-16 17:22] VITALS: BMI 25.8
--- NOTE | 2022-06-16 17:26 | XR_ITS ---
PROCEDURE INFORMATION: Exam: XR Pelvis Exam date and time: 06/16/2022 5:29 PM Age: 26 years old Clinical indication: Injury or trauma; Fall; Blunt trauma (contusions or hematomas); Bilateral; Hip TECHNIQUE: Imaging protocol: Radiologic exam of the pelvis. Views: 1 or 2 view. COMPARISON: CT ABDOMEN PELVIS W CON 01/22/2021 10:27 PM FINDINGS: Bones/joints: Intramedullary fixation casandra left proximal femur. Findings incompletely visualized. L-shaped radiodensity again identified superior to the left his greater trochanter. This may correspond to tendinous ossification. Findings unchanged since 01/22/2021. Soft tissues: Unremarkable. IMPRESSION: No evidence of acute osseous injury.
--- NOTE | 2022-06-16 17:26 | XR_ITS ---
PROCEDURE INFORMATION: Exam: XR Chest Exam date and time: 06/16/2022 5:24 PM Age: 26 years old Clinical indication: Injury or trauma; Fall; Blunt trauma (contusions or hematomas) TECHNIQUE: Imaging protocol: Radiologic exam of the chest. Views: 1 view. COMPARISON: CR XR CHEST 2V 07/26/2019 10:54 PM FINDINGS: Lungs: Unremarkable. No consolidation. Pleural spaces: Unremarkable. No pleural effusion. No pneumothorax. Heart/Mediastinum: Unremarkable. No cardiomegaly. Bones/joints: Unremarkable. IMPRESSION: No acute findings.
--- NOTE | 2022-06-16 17:27 | CT_ITS ---
PROCEDURE INFORMATION: Exam: CT Cervical Spine Without Contrast Exam date and time: 06/16/2022 5:42 PM Age: 26 years old Clinical indication: Injury or trauma; Fall; Additional info: Fall of 36 feet TECHNIQUE: Imaging protocol: Computed tomography of the cervical spine without contrast. Radiation optimization: All CT scans at this facility use at least one of these dose optimization techniques: automated exposure control; mA and/or kV adjustment per patient size (includes targeted exams where dose is matched to clinical indication); or iterative reconstruction. COMPARISON: [facility] CT CERVICAL SPINE W/O CONT 01/13/2016 9:50 PM FINDINGS: Bones/joints: No acute fracture. Normal alignment. Discs/Spinal canal/Neural foramina: No significant disc protrusion. No severe spinal canal stenosis. No significant neural foraminal narrowing. Lungs: Lung apices are normal. Soft tissues: Unremarkable. IMPRESSION: No acute findings.
--- NOTE | 2022-06-16 17:27 | XR_ITS ---
PROCEDURE INFORMATION: Exam: XR Left Femur Exam date and time: 06/16/2022 5:58 PM Age: 26 years old Clinical indication: Injury or trauma; Fall; Work related; Blunt trauma; Thigh or upper leg; Left; Prior surgery; Surgery date: 6+ months; Surgery type: Femur; Patient HX: Alexandre elizabeth fell off of ladder. TECHNIQUE: Imaging protocol: Radiologic exam of the Left femur. Views: 2 views. COMPARISON: CR XR FEMUR LT 2V 10/02/2021 10:38 PM FINDINGS: Bones/joints: No acute fractures. Old healed fracture in the proximal diaphysis with solid bony union. Femoral fixation casandra in place without gross hardware complication. Chronic postoperative ossifications near the greater trochanter. No dislocation. No blastic or lytic lesions. Joint spaces are grossly well-maintained. No gross joint effusion. The visualized pelvis and acetabulum demonstrate no gross abnormality. Soft tissues: No periostitis. No gross soft tissue abnormalities. No radiopaque foreign bodies. Other findings: No osteolysis. IMPRESSION: No acute findings.
--- NOTE | 2022-06-16 17:27 | CT_ITS ---
PROCEDURE INFORMATION: Exam: CTA Chest With Contrast CTA Abdomen and Pelvis With Contrast Exam date and time: 06/16/2022 5:52 PM Age: 26 years old Clinical indication: Injury or trauma; Fall; Additional info: Fall of 36 feet TECHNIQUE: Imaging protocol: Computed tomographic angiography of the chest with contrast. Computed tomographic angiography of the abdomen and pelvis with contrast. 3D rendering (Not supervised by radiologist): MIP and/or 3D reconstructed images were created by the technologist. Radiation optimization: All CT scans at this facility use at least one of these dose optimization techniques: automated exposure control; mA and/or kV adjustment per patient size (includes targeted exams where dose is matched to clinical indication); or iterative reconstruction. Contrast material: ISOVUE 370; Contrast volume: 100 ml; Contrast route: INTRAVENOUS (IV); COMPARISON: CT ABDOMEN PELVIS W CON 01/22/2021 10:27 PM FINDINGS: VASCULATURE: Pulmonary arteries: The pulmonary arteries demonstrate no gross abnormality. Aorta: The thoracic aorta is normal in appearance with no evidence of acute traumatic injury, dissection, aneurysm, or stenosis. The abdominal aorta is normal. Celiac trunk and mesenteric arteries: The celiac artery and its major branch vessels are normal. The SMA and its major branch vessels are normal. The ITZ and its major branch vessels are normal. Renal arteries: There is a single right main renal artery which is normal in appearance. There is a single left main renal artery which is normal in appearance. Right iliac arteries: The right iliac arteries are normal. Left iliac arteries: The left iliac arteries are normal. Thyroid: The visualized thyroid gland is unremarkable. CHEST: Lungs: Granulomatous calcifications in the mediastinal and left hilar distributions. No acute tracheobronchial abnormalities. No infiltrates or edema. No gross pulmonary contusion. Mild-moderate dependent atelectasis bilaterally. No pulmonary mass lesions are identified. Pleural spaces: No pleural effusions. No pneumothorax. Heart: Heart size normal. No significant coronary artery calcification. Mediastinal space: No mediastinal hematoma. The esophagus is largely contracted without gross abnormality. ABDOMEN AND PELVIS: Liver: Normal contour. No mass lesions. No intrahepatic biliary ductal dilatation. Gallbladder and bile ducts: The gallbladder is normal in appearance. The common hepatic duct and proximal common bile duct mildly dilated at 7 mm diameter, and mildly increased in caliber from 01/22/2021. No calcified stones or obstructive mass lesions are identified. No regional trauma is evident to suggest traumatic etiology. Clinical/laboratory correlation recommended to exclude evidence of biliary obstruction. Consider sonographic assessment as clinically indicated. Pancreas: Normal. No inflammatory changes or ductal dilation. Spleen: Splenomegaly measuring 15.9 cm. Granulomatous calcification in the spleen. Adrenal glands: Normal. No adrenal mass. Kidneys and ureters: No acute abnormalities. No hydronephrosis or hydroureter. No urinary tract stones are identified. Stomach and bowel: The stomach is unremarkable. The small bowel is nondilated with no gross abnormality. No acute colonic abnormalities. Appendix: The appendix is normal in caliber and demonstrates no evidence of appendicitis. Intraperitoneal space: No free fluid or air. Urinary bladder: The urinary bladder is partially contracted without gross abnormality. Reproductive: Unremarkable as visualized. Lymph nodes: No supraclavicular or axillary adenopathy. No
--- NOTE | 2022-06-16 17:27 | CT_ITS ---
PROCEDURE INFORMATION: Exam: CT Lumbar Spine Without Contrast Exam date and time: 06/16/2022 5:48 PM Age: 26 years old Clinical indication: Injury or trauma; Additional info: Fall of 36 feet TECHNIQUE: Imaging protocol: Computed tomography of the lumbar spine without contrast. Radiation optimization: All CT scans at this facility use at least one of these dose optimization techniques: automated exposure control; mA and/or kV adjustment per patient size (includes targeted exams where dose is matched to clinical indication); or iterative reconstruction. COMPARISON: CT abdomen pelvis 01/22/2021. FINDINGS: Bones/joints: No acute fractures. No pars defects. Mild chronic anterior wedging of T12 is unchanged from 01/22/2021, suggesting mild chronic compression injury versus chronic degenerative remodeling or developmental configuration. T12-L1: No change. Mild disc space narrowing and chronic Schmorl's node formation. No canal or foraminal stenosis. L1-L2: No change. Normal. L2-L3: No change. Normal. L3-L4: No change. Minimal anterior spurring. 1.5 mm disc bulge. Slight central canal stenosis due to disc bulge and short pedicles with AP thecal sac dimension 9 mm at the midline. No foraminal stenosis. L4-L5: No change. 2 mm disc bulge. Slight central canal stenosis due to disc bulge and short pedicles with AP thecal sac dimension 9 mm at the midline. No foraminal stenosis. L5-S1: No change. Mild posterior disc space narrowing. Mild anterior spurring. 2.5 mm disc bulge. No canal or foraminal stenosis. Gallbladder and bile ducts: Mildly dilated common bile duct again noted measuring 7 mm diameter with no obstructive stones or mass lesions evident. Clinical/laboratory correlation recommended to exclude evidence of biliary obstruction. Consider sonographic assessment as clinically indicated. Soft tissues: Visualized paraspinal soft tissues are normal. Other findings: No compressive soft disc extrusions or protrusions are identified by CT. Visualized retroperitoneal structures are normal. IMPRESSION: 1. No evidence of fracture or traumatic subluxation. No acute findings in the lumbar spine. 2. Mild dilatation of the common bile duct again noted, at 7 mm diameter. Please see recommendations above.
--- NOTE | 2022-06-16 17:27 | CT_ITS ---
PROCEDURE INFORMATION: Exam: CT Thoracic Spine Without Contrast Exam date and time: 06/16/2022 5:46 PM Age: 26 years old Clinical indication: Injury or trauma; Additional info: Fall of 36 feet TECHNIQUE: Imaging protocol: Computed tomography of the thoracic spine without contrast. Radiation optimization: All CT scans at this facility use at least one of these dose optimization techniques: automated exposure control; mA and/or kV adjustment per patient size (includes targeted exams where dose is matched to clinical indication); or iterative reconstruction. COMPARISON: CT CERVICAL SPINE WO CON 06/16/2022 5:42 PM FINDINGS: Bones/joints: Thoracic vertebral alignment is normal. No acute fractures. Mild chronic anterior wedging of T12 is unchanged from 01/22/2021 and may be chronic developmental, degenerative, or posttraumatic in nature, with no retropulsion. No blastic or lytic lesions. Discs/Spinal canal/Neural foramina: Mild disc space narrowing and chronic Schmorl's node formation at T12-L1. Mild disc space narrowing and chronic Schmorl's node formation T8-T9. Minimal anterior spurring at multiple midthoracic levels. No compressive soft disc protrusion or extrusion is evident by CT. No canal stenosis. No neuroforaminal stenosis. Soft tissues: Paraspinous soft tissues are unremarkable without significant soft tissue swelling or soft tissue hematoma. Visualized upper abdominal structures were unremarkable. Lungs: Mild-moderate dependent atelectasis in both lungs. Pleural spaces: No evidence of pleural effusion or pneumothorax within the scan range. Mediastinum: Visualized mediastinal structures demonstrate no acute abnormalities. Granulomatous calcifications in the right upper lobe, lower mediastinum, and bilateral etienne. Thyroid: The visualized thyroid gland is unremarkable. IMPRESSION: No acute thoracic spine abnormalities are identified.
--- NOTE | 2022-06-16 17:27 | XR_ITS ---
PROCEDURE INFORMATION: Exam: XR Left Hip Exam date and time: 06/16/2022 5:58 PM Age: 26 years old Clinical indication: Injury or trauma; Fall; Blunt trauma (contusions or hematomas); Hip; Prior surgery; Surgery date: 6+ months; Surgery type: Left femur; Patient HX: Alexandre elizabeth fell off of ladder. Trauma alert. ; Additional info: Fall of 36 feet TECHNIQUE: Imaging protocol: Radiologic exam of the Left hip. Views: 2 or 3 views hip with pelvis when performed. COMPARISON: CR XR PELVIS 1-2V 06/16/2022 5:29 PM FINDINGS: Bones/joints: No acute fractures. Old healed fracture of the left proximal femoral diaphysis with solid bony union. Femoral fixation casandra without gross hardware complication. Chronic postoperative periarticular ossifications near the greater trochanter are unchanged. Hip joint spaces and articular surfaces are grossly well-maintained. No blastic or lytic lesions. The visualized SI joints, pubic symphysis, and sacrum/pelvis were unremarkable. Soft tissues: No gross soft tissue abnormalities. Other findings: Normal alignment. IMPRESSION: No acute findings.
--- NOTE | 2022-06-16 17:27 | CT_ITS ---
PROCEDURE INFORMATION: Exam: CT Head Without Contrast Exam date and time: 06/16/2022 5:42 PM Age: 26 years old Clinical indication: Injury or trauma; Fall; Additional info: Fall of 36 feet TECHNIQUE: Imaging protocol: Computed tomography of the head without contrast. Radiation optimization: All CT scans at this facility use at least one of these dose optimization techniques: automated exposure control; mA and/or kV adjustment per patient size (includes targeted exams where dose is matched to clinical indication); or iterative reconstruction. COMPARISON: CT HEAD/BRAIN WO CON 07/26/2019 11:02 PM FINDINGS: Brain: Normal. No hemorrhage. Unremarkable white matter. No mass effect. Cerebral ventricles: No ventriculomegaly. Paranasal sinuses: Right maxillary sinus retention cyst versus polyp. Mastoid air cells: Visualized mastoid air cells are well aerated. Nasal cavity: Hypertrophy of the nasal turbinates. Bones/joints: Unremarkable. No acute fracture. Soft tissues: Unremarkable. IMPRESSION: No evidence of acute intracranial abnormality.
--- NOTE | 2022-06-16 17:27 | HMH.EDTRAUMA ---
ED Disposition Clinical Impression: Blunt trauma, Fall Disposition: Home, Self-Care Condition on Discharge: Good Additional Instructions: At this time it was felt you are safe to be discharged home. If new or worsening symptoms please do not hesitate to return to the emergency department. Please take your medications as prescribed. Please follow-up with your family doctor within 3 to 5 days for continued evaluation of your left knee. For pain control please take Tylenol and ibuprofen. Prescriptions: methocarbamoL [Methocarbamol 500mg Tablet] 500 mg PO TID PRN #12 tab PRN Reason: Muscle Spasm Transmission Status: [facility] Referrals: Dell Cortes MD [Primary Care Provider] - - Critical Care Critical Care Time: No Attestation: On , the high probability of a clinically significant, sudden or life threatening deterioration of the following system(s) required my full and direct attention, intervention and personal management. The time I documented below is in addition to time spent performing reported procedures but includes the following listed in this critical care notation. Medical Decision Making - [place] Inquiry Pt receiving controlled substance: No Vital Signs: 06/16/22 17:33 Temperature 97.9 F Temperature Source Oral Pulse Rate [Apical] 82 Respiratory Rate 18 Blood Pressure [Right Arm] 153/97 H Blood Pressure Mean [Right Arm] 115 Blood Pressure Position [Right Arm] Supine 02 Sat by Pulse Oximetry 97 Oxygen Delivery Method Room Air - Lab Data Lab Results 06/16/22 17:40: WBC 6.6, RBC 4.49 L, Hgb 14.5, Hct 42.6, MCV 94.9 H, MCH 32.2 H, MCHC 34.0, RDW 13.0, Plt Count 184, MPV 8.6, Neut % (Auto) 49.7, Lymph % (Auto) 35.4, [place] % (Auto) 5.2, Eos % (Auto) 9.0, Baso % (Auto) 0.8, Neut # (Auto) 3.3, Lymph # (Auto) 2.3, [place] # (Auto) 0.4, Eos # (Auto) 0.6 H, Baso # (Auto) 0.1 06/16/22 17:40: Sodium 136, Potassium 3.9, Chloride 102, Carbon Dioxide 28, Anion Gap 9.9, BUN 12, Creatinine 0.90, Estimated Creat Clear 137, Estimated GFR 103, Est GFR ( Amer) 124, Glucose 125 H, Calcium 9.1, Total Bilirubin < 0.1 L, AST 41, ALT 27, Alkaline Phosphatase 104, Total Protein 6.9, Albumin 4.3, Globulin 2.6, Albumin/Globulin Ratio 1.7 06/16/22 17:40: Lactate 1.6 06/16/22 17:40: Blood Type A Positive, Antibody Screen Negative Result diagrams: 06/16/22 17:40 06/16/22 17:40 Orders (Tests/Meds): ED MEDICATIONS Generic Name Dose Route Start Last Admin Trade Name Freq PRN Reason Stop Dose Admin Sodium Chloride 10 ml 06/16/22 18:02 Sodium Chloride 0.9% 10ml Syr (Rad Only) IV 07/16/22 18:01 NEEDED PRN Maintain IV Site Discontinued Medications Generic Name Dose Route Start Last Admin Trade Name Freq PRN Reason Stop Dose Admin Diphenhydramine HCl 25 mg 06/16/22 17:29 06/16/22 17:25 Diphenhydramine 50mg/Ml Vial IV 06/16/22 17:30 25 mg ONCE ONE Administration Fentanyl Citrate 100 mcg 06/16/22 17:27 06/16/22 17:27 Fentanyl 250mcg/5ml Vial IV 06/16/22 17:28 100 mcg ONCE ONE Administration Iopamidol 100 ml 06/16/22 18:02 06/16/22 18:04 Iopamidol-370 (76%);100ml Bottle IV 06/16/22 18:03 100 ml ONCE ONE Administration Methylprednisolone Sodium Succinate 125 mg 06/16/22 17:29 06/16/22 17:25 Methylprednisolone Sod Succ 125mg Vial IV 06/16/22 17:30 125 mg ONCE ONE Administration Ondansetron HCl 4 mg 06/16/22 17:35 06/16/22 17:27 Ondansetron 4mg/2ml Vial IV 06/16/22 17:36 4 mg ONCE ONE Administration Sodium Chloride 50 ml 06/16/22 18:02 06/16/22 18:04 0.9 % Sodium Chloride 50 Ml Vial IV 06/16/22 18:03 50 ml ONCE ONE Administration ORDERS Category Date Time Status CT angio chest - dissection Stat Cat Scan 06/16/22 17:27 Taken Medical Decision Narrative: In summary this is a 26-year-old male who presents emergency department for evaluation of traumatic injury sustained in a fall. Joseluis
--- NOTE | 2022-06-16 17:28 | PC.NURSE ---
notified rad pt is ready for CT scans, spoke with adriane. Notified her pt has been medicated for reported IV contrasts allergy and also medicated for pain.
[2022-06-16 17:33] VITALS: BP 153/97; PULSE 82; RESP 18; TEMP 36.6; O2SAT 97
--- NOTE | 2022-06-16 17:34 | XR_ITS ---
PROCEDURE INFORMATION: Exam: XR Left Knee Exam date and time: 06/16/2022 5:59 PM Age: 26 years old Clinical indication: Injury or trauma; Fall; Work related; Blunt trauma; Knee; Left; Patient HX: Patient fell off of ladder. Trauma alert. ; Additional info: Pain TECHNIQUE: Imaging protocol: Radiologic exam of the Left knee. Views: 1 or 2 views. COMPARISON: CR XR KNEE LT 3V 10/02/2021 10:37 PM FINDINGS: Bones/joints: Femoral fixation casandra without gross hardware complication or change. No fracture. No blastic or lytic lesions. No significant joint effusion is present. Joint spaces are well-maintained. Soft tissues: No periostitis or osteolysis. No gross soft tissue abnormalities. No foreign bodies. Other findings: Normal alignment. IMPRESSION: No acute findings.
--- NOTE | 2022-06-16 17:34 | PC.NURSE ---
trauma alert called at 1711 ER MD to BS at 1711
--- NOTE | 2022-06-16 17:45 | PC.NURSE ---
PT GOING TO CT
--- NOTE | 2022-06-16 17:49 | PC.NURSE ---
report given to jamie olvera at this time.
[2022-06-16 18:04] LABS: Lactic Acid 1.6 mmol/L (0.7-2.1)
[2022-06-16 18:06] LABS: Basophils # 0.1 K/mm3 (0-0.2); Basophils % 0.8 % (0.1-2.0); Eosinophils # 0.6 K/mm3 (0.0-0.4); Hematocrit 42.6 % (42.0-52.0); Hemoglobin 14.5 g/dL (14.1-18.0); Lymphocytes # 2.3 K/mm3 (0.7-4.5); Lymphocytes % 35.4 % (10-50); Mean Corpuscular Hemoglobin 32.2 pg (27.0-31.2); Mean Corpuscular Volume 94.9 fl (80-94); Mean Platelet Volume 8.6 fl (7.4-10.4); Monocytes # 0.4 K/mm3 (0.1-1.0); Monocytes % 5.2 % (1.7-9.3); Neutrophils # 3.3 K/mm3 (1.8-7.8); Neutrophils % 49.7 % (37.0-80.0); Platelet Count 184 K/mm3 (142-424); Red Blood Count 4.49 M/mm3 (4.60-6.20); White Blood Count 6.6 K/mm3 (4.8-10.8)
[2022-06-16 18:14] LABS: Alanine Aminotransferase 27 U/L (12-78); Albumin Level 4.3 g/dl (3.5-5.0); Albumin/Globulin Ratio 1.7 (1.1-1.8); Alkaline Phosphatase 104 U/L (38-126); Anion Gap 9.9 mEq/L (5-15); Aspartate Amino Transferase 41 U/L (17-59); Blood Urea Nitrogen 12 mg/dl (9-20); Calcium 9.1 mg/dl (8.4-10.2); Carbon Dioxide 28 mmol/L (22.0-30.0); Chloride 102 mmol/L (98-107); Creatinine Clearance Estimated 137 mL/min (50-200); Estimated Glomerular Filt Rate 103 ml/min (>60); GFR (African American) 124 ML/MIN (>60); Globulin 2.6 g/dL (1.3-3.2); Glucose 125 mg/dl (74-100); Potassium 3.9 mmoL/L (3.5-5.1); Sodium 136 mmol/L (136-145); Total Protein,Serum 6.9 g/dl (6.3-8.2)
[2022-06-16 18:23] LABS: Bilirubin,Total < 0.1 mg/dl (0.2-1.3)
--- NOTE | 2022-06-16 19:42 | PC.NURSE ---
Dmitry wrap applied to patients left knee. Patient given a set of crutches and instructed on their usage. Patient verbalized understanding.
[2022-06-16 19:47] VITALS: BP 150/88; PULSE 78; RESP 18; TEMP 36.8; O2SAT 98
== END 2022-06-16 19:51 | disposition home or self-care (01) ==
PROVIDERS: Emergency Provider Emergency Medicine; PCP Emergency Medicine
DX: T14.90XA Injury, unspecified, initial encounter (principal); M79.662 Pain in left lower leg; M54.89 Other dorsalgia; W11.XXXA Fall on and from ladder, initial encounter
CPT/HCPCS: 36415; 70450; 71045; 71275; 72125; 72128; 72131; 72170; 73502; 73552; 73560; 74174; 80053; 83605; 85025; 86850; 96374; 96375; 99285; J2405; Q9967

== ENCOUNTER 2022-07-08 23:01 | Emergency (ER) | payer OTHER, SELFPAY ==
[2022-07-08 23:10] VITALS: BP 154/78; PULSE 82; RESP 16; TEMP 36.6; O2SAT 100; BMI 27.4
[2022-07-08 23:14] VITALS: BP 154/78; PULSE 82; RESP 16; TEMP 36.6; O2SAT 100
[2022-07-08 23:15] VITALS: BP 120/78; PULSE 74; RESP 18; TEMP 36.8; O2SAT 98
--- NOTE | 2022-07-08 23:17 | HMH.EDEXTP ---
Discharge Plan Disposition Patient Disposition: Home, Self-Care Chief Complaint: Extremity Injury, Lower Prescriptions Prescriptions: No Action methocarbamol 500 MG tablet 500 mg PO TID PRN (Reason: Muscle Spasm) Qty: 12 0RF sulfamethoxazole-trimethoprim 1 EACH tablet 1 tab PO BID Qty: 14 0RF Referrals Follow up/Referrals: Dell Cortes MD [Primary Care Provider] - See instructions Clinical Impressions Clinical Impression: OC (onychocryptosis), Ingrowing toenail with infection Instructions Patient Instructions: DI for Infected Ingrown Toenail Discharge ED Provider: Dell Cortes Extremity Problem HPI General Chief complaint: Extremity Injury, Lower Stated complaint: possible infected ingrown toenail Time Seen by Provider: 07/08/22 23:17 Mode of Arrival: Ambulatory Source of Information: Patient and Medical Record Limitations: No Limitations Description of Symptoms (Recalled from ER Triage Doc. by RN): Pt c/o left great toe pain that started one week ago. Believes the pain is due to an ingrown toe nail that he pulled out last week. States his pain is a 10/10. Also states that both of his feet became reddened over night but denies any itching or burning. There is a darkened area on his left great toe. History of Present Illness HPI Narrative: progressive swelling and pain lt great toe - no diabetes MD Complaint: other (infected toe nail) Onset (ago): day(s) Consistency: constant Location: toe Quality: constant Related Data Previous Rx's Medication Instructions Recorded sulfamethoxazole 800 1 tab PO BID #14 tabs 06/08/22 mg-trimethoprim 160 mg tablet methocarbamol 500 mg tablet 500 mg PO TID PRN Muscle Spasm #12 06/16/22 tabs Allergies Allergy/AdvReac Type Severity Reaction Status Date / Time Iodinated Contrast Media Allergy Verified 06/16/22 17:44 PFSH PFSH Social History Smoking Status: Never smoker alcohol intake: never substance use type: denies use current occupational status: other Travel in the last 8 weeks: None household members: spouse housing: house ROS Obtained: Yes All systems reviewed & no additional complaints except as documented Physical Exam General General appearance: in no apparent distress Head Head exam: normocephalic Eye Eye exam: Present PERRL and EOMI ENT ENT exam: Present mucous membranes moist Neck Neck exam: Present trachea midline Respiratory Respiratory exam: Absent respiratory distress Cardiovascular Cardiovascular exam: Present regular rate Extremities Exam Extremities exam: Present other (infected lt great toe ) Neurological Exam Neurological exam: Present alert, oriented X3 and CN II-XII intact Psychiatric Psychiatric exam: Present normal affect Skin Skin exam: Absent rash Medical Decision Making [place] Inquiry Pt receiving controlled substance: No Vital Signs: 07/08/22 23:10 Temperature 98 F Temperature Source Oral Pulse Rate [Apical] 82 Respiratory Rate 16 Blood Pressure [Right Arm] 154/78 H Blood Pressure Mean [Right Arm] 103 Blood Pressure Source [Right Arm] Automatic Cuff Blood Pressure Position [Right Arm] Sitting 02 Sat by Pulse Oximetry 100 Oxygen Delivery Method Room Air Critical Care Time Critical Care Time Critical Care Time: No Attestation: The high probability of a clinically significant, sudden or life threatening deterioration of the [] system(s) required my full and direct attention, intervention and personal management. The aggregate critical care time was [] minutes. This time is in addition to time spent performing reported procedures but includes the following: [] Data Review and interpretation [] Patient assessment and monitoring of vital signs [] Documentation [] Medication orders and management
== END 2022-07-08 23:38 | disposition home or self-care (01) ==
PROVIDERS: Emergency Provider Emergency Medicine; PCP Emergency Medicine
DX: L60.0 Ingrowing nail (principal); Z91.041 Radiographic dye allergy status
CPT/HCPCS: 96372; 99283; J0696

== ENCOUNTER 2022-07-20 16:54 | Emergency (ER) | payer OTHER, SELFPAY ==
[2022-07-20 17:10] VITALS: RESP 19; TEMP 36.7; BMI 27.4
[2022-07-20 17:58] VITALS: BP 130/89; PULSE 77; RESP 18; TEMP 36.7; O2SAT 98; BMI 27.4
--- NOTE | 2022-07-20 19:07 | HMH.EDGENADL ---
Discharge Plan Disposition Chief Complaint: Eye Problems Prescriptions Prescriptions: No Action methocarbamol 500 MG tablet 500 mg PO TID PRN (Reason: Muscle Spasm) Qty: 12 0RF sulfamethoxazole-trimethoprim 1 EACH tablet 1 tab PO BID Qty: 14 0RF Referrals Follow up/Referrals: Dell Cortes MD [Primary Care Provider] - See instructions Discharge ED Provider: Jerzy Wu General Adult HPI General Chief complaint: Eye Problems Stated complaint: ao07/18 [facility] [facility] E[facility] Time Seen by Provider: 07/20/22 19:05 Mode of Arrival: Ambulatory Source of Information: Patient Limitations: No Limitations Description of Symptoms (Recalled from ER Triage Doc. by RN): right eye swelling after a tree branch/gibbons punched in his skin below his right eye. States he cleaned it really good and the next day it was swollen and few days later he had a scab he scrapped off and some green pus like substance came out. Denies any eye issues. History of Present Illness HPI narrative: Presents complaining of pain and swelling to the left infraorbital area. Symptoms began on Tuesday after he was struck by a branch from a tree. He denies additional injuries he denies visual impairment. Noted some swelling to the area. Scribes symptoms as moderate and without exacerbating alleviating factors. Related Data Previous Rx's Medication Instructions Recorded sulfamethoxazole 800 1 tab PO BID #14 tabs 06/08/22 mg-trimethoprim 160 mg tablet methocarbamol 500 mg tablet 500 mg PO TID PRN Muscle Spasm #12 06/16/22 tabs Allergies Allergy/AdvReac Type Severity Reaction Status Date / Time Iodinated Contrast Media Allergy Verified 06/16/22 17:44 [facility] Social History Smoking Status: Never smoker alcohol intake: never substance use type: denies use current occupational status: other Travel in the last 8 weeks: None household members: spouse housing: house ROS Obtained: Yes All systems reviewed & no additional complaints except as documented Physical Exam General General appearance: alert Head Head exam: normocephalic Eye Eye exam: Present PERRL, EOMI and other (To the left infraorbital area there is some mild edema and brawny erythema. This is approximately one 1 cm in height by 2 and half to 3 cm in length. Laterally over this area there is a 2 mm diameter scab. Small amount of fluctuance.) Neck Neck exam: Present normal inspection Chest Chest inspection: Present normal inspection and symmetric chest wall rise Respiratory Respiratory exam: Present normal lung sounds bilaterally and respiratory distress Cardiovascular Cardiovascular exam: Present regular rate and normal rhythm Abdominal Exam Abdominal exam: Present soft; Absent tenderness Extremities Exam Extremities exam: Present normal inspection Back Exam Back exam: Present normal inspection Neurological Exam Neurological exam: Present alert, oriented X3 and normal gait Psychiatric Psychiatric exam: Present normal affect and normal mood Skin Skin exam: Present warm Lymphatic Lymphatic Findings: no adenopathy Medical Decision Making [place] Inquiry Pt receiving controlled substance: No Vital Signs: 07/20/22 17:10 07/20/22 17:58 Temperature 98.1 F 98.0 F Temperature Source Oral Oral Pulse Rate [Left Radial] 77 Respiratory Rate 19 18 Blood Pressure [Right Arm] 130/89 Blood Pressure Mean [Right Arm] 102 Blood Pressure Source [Right Arm] Automatic Cuff Blood Pressure Position [Right Arm] Sitting 02 Sat by Pulse Oximetry 98 Oxygen Delivery Method Room Air Critical Care Time Critical Care Time Attestation: On 07/20/22, the high probability of a clinically significant, sudden or life threatening deterioration of the following system(s) required my full and direct attention, intervention and personal management. The time I documented below is in addition to time spent performing
--- NOTE | 2022-07-20 19:15 | PC.NURSE ---
at bedside to perform I&D.
--- NOTE | 2022-07-20 19:29 | HMH.EDEYEP ---
Discharge Plan Disposition Patient Disposition: Home, Self-Care Condition: Good Prescriptions Prescriptions: New doxycycline hyclate 100 mg capsule 100 mg PO BID 14 Days Qty: 28 0RF No Action methocarbamol 500 MG tablet 500 mg PO TID PRN (Reason: Muscle Spasm) Qty: 12 0RF sulfamethoxazole-trimethoprim 1 EACH tablet 1 tab PO BID Qty: 14 0RF Referrals Follow up/Referrals: Dell Cortes MD [Primary Care Provider] - See instructions Activity Restrictions/Add. Instructions Additional Instructions/Restrictions: Irrigate wound daily in shower with cool running water. After irrigation gently dry and apply antibiotic ointment and a nonadhesive dressing such as a Band-Aid. Antibiotics as directed until all gone. Return for worsening swelling, pain to the eyeball or other concerns. Clinical Impressions Clinical Impression: Abscess of face Instructions Patient Instructions: Boil Discharge ED Provider: Jerzy Wu Eye Problem HPI General Chief complaint: Eye Problems Stated complaint: ao07/18 [facility] [facility] EYE Time Seen by Provider: 07/20/22 19:26 Mode of Arrival: Ambulatory Source of Information: Patient Limitations: No Limitations Description of Symptoms (Recalled from ER Triage Doc. by RN): right eye swelling after a tree branch/gibbons punched in his skin below his right eye. States he cleaned it really good and the next day it was swollen and few days later he had a scab he scrapped off and some green pus like substance came out. Denies any eye issues. History of Present Illness HPI Narrative: Presents complaint of pain and swelling to the left infraorbital area that began on Tuesday after having been struck in that area by a tree branch. [place] foreign body sensation he denies additional injuries. Symptoms is moderate without exacerbating or alleviating factors. Related Data Previous Rx's Medication Instructions Recorded sulfamethoxazole 800 1 tab PO BID #14 tabs 06/08/22 mg-trimethoprim 160 mg tablet methocarbamol 500 mg tablet 500 mg PO TID PRN Muscle Spasm #12 06/16/22 tabs doxycycline hyclate 100 mg capsule 100 mg PO BID 14 days #28 caps 07/20/22 Allergies Allergy/AdvReac Type Severity Reaction Status Date / Time Iodinated Contrast Media Allergy Verified 06/16/22 17:44 PFSH PFS Social History Smoking Status: Never smoker alcohol intake: never substance use type: denies use current occupational status: other Travel in the last 8 weeks: None household members: spouse housing: house ROS Obtained: Yes All systems reviewed & no additional complaints except as documented Eyes Eyes: Reports system reviewed and no additional complaints, except as documented Physical Exam General General appearance: alert Eye Eye exam: Present other (There is left infraorbital erythema and edema with that is 1 cm in height by 4 cm in length and on the lateral aspect of this area there is a 2 mm area of scab.) Neck Neck exam: Present normal inspection Chest Chest inspection: Present normal inspection Respiratory Respiratory exam: Present normal lung sounds bilaterally Cardiovascular Cardiovascular exam: Present regular rate and normal rhythm Abdominal Exam Abdominal exam: Present soft; Absent tenderness Extremities Exam Extremities exam: Present normal inspection Back Exam Back exam: Present normal inspection Neurological Exam Neurological exam: Present alert and oriented X3 Skin Skin exam: Present warm and dry Medical Decision Making [place] Inquiry Pt receiving controlled substance: No Vital Signs: 07/20/22 17:10 07/20/22 17:58 Temperature 98.1 F 98.0 F Temperature Source Oral Oral Pulse Rate [Left Radial] 77 Respiratory Rate 19 18 Blood Pressure [Right Arm] 130/89 Blood Pressure Mean [Right Arm] 102 Blood Pressure Source [Right Arm] Automatic Cuff Blood Pressure Position [Right Arm] Sitting 02 S
--- NOTE | 2022-07-20 19:41 | PC.NURSE ---
neosporin put on eye wound and bandaid placed over
[2022-07-20 19:44] VITALS: BP 121/83; PULSE 74; RESP 16; TEMP 36.7; O2SAT 100
== END 2022-07-20 19:45 | disposition home or self-care (01) ==
PROVIDERS: Emergency Provider Emergency Medicine; PCP Emergency Medicine
DX: H05.011 Cellulitis of right orbit (principal)
CPT/HCPCS: 96372; 99283

== ENCOUNTER 2022-12-05 19:46 | Emergency (ER) | payer OTHER, SELFPAY ==
[2022-12-05 19:47] VITALS: BP 151/90; PULSE 98; RESP 18; TEMP 36.8; O2SAT 98; BMI 27.4
--- NOTE | 2022-12-05 19:51 | XR_ITS ---
PROCEDURE INFORMATION: Exam: XR Chest Exam date and time: 12/05/2022 7:47 PM Age: 27 years old Clinical indication: Sternal or substernal pain; Additional info: marquise LITTLEJOHN TECHNIQUE: Imaging protocol: Radiologic exam of the chest. Views: 2 views. COMPARISON: CR XR CHEST PORTABLE 06/16/2022 5:24 PM FINDINGS: Lungs: Unremarkable. No consolidation. Pleural spaces: Unremarkable. No pleural effusion. No pneumothorax. Heart/Mediastinum: Unremarkable. No cardiomegaly. Bones/joints: Unremarkable. IMPRESSION: No acute findings.
--- NOTE | 2022-12-05 19:52 | ECG_ITS ---
APPROVED REPORT Exam: Resting ECG HR:79 bpm ECG Measurements Heart Rate 79 AXES MI 122 P 68 QRSd 84 QRS 79 QT 350 T 68 QTc 385 Conclusion SINUS RHYTHM NORMAL ECG UNCONFIRMED REPORT Electronically signed by : Que Paige MD 12/06/2022 19:45:28
[2022-12-05 20:00] VITALS: BP 134/84; PULSE 79; RESP 17; O2SAT 98
[2022-12-05 20:02] LABS: Basophils # 0.1 K/mm3 (0-0.2); Eosinophils # 0.1 K/mm3 (0.0-0.4); Eosinophils % 1.7 % (0.1-12.0); Hematocrit 45.9 % (42.0-52.0); Hemoglobin 15.8 g/dL (14.1-18.0); Lymphocytes # 1.8 K/mm3 (0.7-4.5); Lymphocytes % 25.8 % (10-50); Mean Corpuscular HGB Conc 34.4 g/dL (31.8-35.4); Mean Corpuscular Hemoglobin 31.2 pg (27.0-31.2); Mean Corpuscular Volume 90.8 fl (80-94); Mean Platelet Volume 9.4 fl (7.4-10.4); Monocytes # 0.3 K/mm3 (0.1-1.0); Monocytes % 3.7 % (1.7-9.3); Neutrophils # 4.8 K/mm3 (1.8-7.8); Neutrophils % 67.9 % (37.0-80.0); Platelet Count 139 K/mm3 (142-424); Red Blood Count 5.06 M/mm3 (4.60-6.20); Red Cell Distribution Width 12.9 % (11.5-17.5); White Blood Count 7.1 K/mm3 (4.8-10.8)
[2022-12-05 20:10] LABS: Alanine Aminotransferase 19 U/L (12-78); Albumin Level 4.7 g/dl (3.5-5.0); Albumin/Globulin Ratio 1.6 (1.1-1.8); Alkaline Phosphatase 91 U/L (38-126); Anion Gap 10.7 mEq/L (5-15); Aspartate Amino Transferase 27 U/L (17-59); Bilirubin,Total 0.4 mg/dl (0.2-1.3); Blood Urea Nitrogen 12 mg/dl (9-20); Calcium 9.2 mg/dl (8.4-10.2); Carbon Dioxide 28 mmol/L (22.0-30.0); Chloride 107 mmol/L (98-107); Creatinine Clearance Estimated 136 mL/min (50-200); Estimated Glomerular Filt Rate 102 ml/min (>60); GFR (African American) 123 ML/MIN (>60); Glucose 90 mg/dl (74-100); Potassium 3.7 mmoL/L (3.5-5.1); Sodium 142 mmol/L (136-145); Total Protein,Serum 7.7 g/dl (6.3-8.2)
[2022-12-05 20:24] LABS: Troponin I < 0.01 ng/ml (0.00-0.034)
[2022-12-05 20:59] VITALS: BP 134/84; PULSE 82; RESP 18; TEMP 36.6; O2SAT 99
--- NOTE | 2022-12-05 21:04 | PC.NURSE ---
While rounding on patient to reassess his chest pain following treatment, patient was found to have discontinued his IV and had left the hospital without being seen. Patient did not notify staff of his intent to elope so no ama form was completed.
== END 2022-12-05 20:14 | disposition left against medical advice (07) ==
LOC: ER 20:12
PROVIDERS: Emergency Provider Emergency Medicine; PCP Emergency Medicine
DX: R07.9 Chest pain, unspecified (principal)
CPT/HCPCS: 71046; 80053; 84484; 85025; 93005; 99285

== ENCOUNTER 2023-01-13 14:12 | Emergency (ER) | payer OTHER, SELFPAY ==
[2023-01-13 14:44] VITALS: BP 170/86; PULSE 83; RESP 18; TEMP 36.7; O2SAT 100; BMI 29.8
--- NOTE | 2023-01-13 14:44 | EXP.UTC ---
Discharge Plan Disposition Patient Disposition: Home, Self-Care Condition: Good Prescriptions Prescriptions: New cephalexin 500 mg capsule 500 mg PO QID Qty: 40 0RF mupirocin 2 % ointment 1 applic topical TID 7 Days Qty: 15 0RF ibuprofen [IBU] 800 mg tablet 800 mg PO Q8HP PRN (Reason: Moderate Pain) Qty: 30 0RF Referrals Follow up/Referrals: Dell Cortes MD [Primary Care Provider] - See instructions Activity Restrictions/Add. Instructions Additional Instructions/Restrictions: Keep the wound clean and dry. Take the antibiotics as directed. Apply the topical antibiotic ointment as directed. Watch the wound for signs of infection, such as redness, swelling, drainage, fever. etc. Take ibuprofen for pain. I sent in a prescription to your pharmacy. Follow up with her regular doctor. GO TO THE ER FOR ANY WORSENING SYMPTOMS OR CONCERNS. Clinical Impressions Clinical Impression: Crushing injury of left index finger, Cellulitis of left index finger Instructions Patient Instructions: DI for Crush Injury, DI for Cellulitis -- Adult Discharge ED Provider: Adilson Agarwal [facility] General Stated complaint: AO@home 3/5 LT hand pain Time Seen by Provider: 01/13/23 14:44 History of Present Illness Provider Complaint: He is here with an injury and infection of the tip of his left index finger. He got it caught in his truck door last Tuesday (4 days ago). He states he is having swelling and pain of the finger. He denies any fever or chills. Related Data Previous Rx's Medication Instructions Recorded cephalexin 500 mg capsule 500 mg PO QID #40 caps 01/13/23 ibuprofen 800 mg tablet (IBU) 800 mg PO Q8HP PRN Moderate Pain 01/13/23 #30 tabs mupirocin 2 % topical ointment 1 applic topical TID 7 days #15 01/13/23 grams Allergies Allergy/AdvReac Type Severity Reaction Status Date / Time No Known Allergies Allergy Verified 12/05/22 20:02 [facility] Disclaimer: The information contained in this section may have been updated after the patient was seen, as this information can be updated by other users. Social History Smoking Status: Never smoker alcohol intake: never substance use type: denies use current occupational status: other Travel in the last 8 weeks: None household members: spouse housing: house ROS Obtained: Yes All systems reviewed & no additional complaints except as documented Constitutional Constitutional: Denies chills and Denies fever(s) Eyes Eyes: Denies eye discharge ENT Ears, Nose, Mouth, and Throat: Denies dizziness, Denies otalgia and Denies sore throat Cardiovascular Cardiovascular: Denies chest pain Respiratory Respiratory: Denies shortness of breath, Denies chest congestion, Denies cough, Denies stridor and Denies wheezing Gastrointestinal Gastrointestingal: Denies nausea or vomiting Musculoskeletal Musculoskeletal: Reports system reviewed and no additional complaints, except as documented and Denies arthralgias Integumentary/Breasts Skin/Breast: Reports as per HPI Neurologic Neurologic: Denies dizziness and Denies paresthesias Allergic/Immunologic Allergic/Immunologic: Denies wheezing Physical Exam General General appearance: alert and in no apparent distress Head Head exam: atraumatic, normocephalic and normal inspection Eye Eye exam: Present normal appearance, PERRL and EOMI ENT ENT exam: Present normal exam, normal oropharynx, mucous membranes moist, TM's normal bilaterally and normal external ear exam Neck Neck exam: Present normal inspection, full ROM and trachea midline; Absent meningismus or lymphadenopathy Chest Chest inspection: Present normal inspection and symmetric chest wall rise; Absent tenderness Respiratory Respiratory exam: Present normal lung sounds bilaterally; Absent respiratory distress Cardiovascular Cardiovascular exam: Present regular rate and normal rhythm
--- NOTE | 2023-01-13 15:01 | XR_ITS ---
FINAL REPORT CLINICAL HISTORY: smashed finger in car door 4 days ago, ? infection FINDINGS: LEFT HAND Three views demonstrate no acute fracture or dislocation. The visualized joint spaces are normally aligned. The soft tissues are unremarkable. IMPRESSION: No acute process. Reviewed, Interpreted and Dictated by Juan Manuel Fair III, MD Transcribed by Magdalene Mcfarlane Authenticated and [facility]
--- NOTE | 2023-01-13 15:02 | PC.NURSE ---
radiology aware of xray.
--- NOTE | 2023-01-13 15:06 | PC.NURSE ---
pt transported to radiology.
--- NOTE | 2023-01-13 15:11 | PC.NURSE ---
pt returned from radiology.
[2023-01-13 16:17] VITALS: BP 170/86; PULSE 83; RESP 18; TEMP 36.7; O2SAT 100
== END 2023-01-13 16:39 | disposition home or self-care (01) ==
PROVIDERS: Emergency Provider Nurse Practitioner Family; PCP Emergency Medicine
DX: S67.191A Crushing injury of left index finger, initial encounter (principal); L03.012 Cellulitis of left finger; W23.2XXA Caught, crushed, jammed or pinched between a moving and stationary object, initial encounter
CPT/HCPCS: 10060; 96372; 73130; 99213; 99214; G0463; J0696

== ENCOUNTER 2023-03-25 00:41 | Emergency (ER) | payer OTHER, SELFPAY ==
[2023-03-25 00:50] VITALS: BP 147/102; PULSE 94; RESP 22; TEMP 36.8; O2SAT 98; BMI 27.4
--- NOTE | 2023-03-25 00:58 | CT_ITS ---
PROCEDURE INFORMATION: Exam: CT Abdomen And Pelvis With Contrast Exam date and time: 03/25/2023 1:51 AM Age: 27 years old Clinical indication: Abdominal pain; Localized; Left upper quadrant (luq); Patient HX: C/O luq pain for several days, worsening tonight; Additional info: Luq abd pain TECHNIQUE: Imaging protocol: Computed tomography of the abdomen and pelvis with contrast. Radiation optimization: All CT scans at this facility use at least one of these dose optimization techniques: automated exposure control; mA and/or kV adjustment per patient size (includes targeted exams where dose is matched to clinical indication); or iterative reconstruction. Contrast material: ISOVUE; Contrast volume: 75 ml; Contrast route: IV; REPORTING DATA: Count of CT and Cardiac NM exams in prior 12 months: This patient has received 6 known CTs and 0 known cardiac nuclear medicine studies in the 12 months prior to the current study. COMPARISON: CT ANGIO ABDOMEN PELVIS 08/14/2022 17:52 FINDINGS: Liver: Normal. No mass. Gallbladder and bile ducts: Normal. No calcified stones. No ductal dilation. Pancreas: Normal. No ductal dilation. Spleen: Borderline splenomegaly. Adrenal glands: Normal. No mass. Kidneys and ureters: Nonobstructing left renal calculus. Stomach and bowel: Nonspecific bowel wall thickening of the small bowel. Appendix: Unremarkable appendix. Intraperitoneal space: Unremarkable. No free air. No significant fluid collection. Vasculature: Unremarkable. No abdominal aortic aneurysm. Lymph nodes: Unremarkable. No enlarged lymph nodes. Urinary bladder: Urinary bladder wall thickening could be due to low urine volume. Reproductive: Unremarkable as visualized. Bones/joints: Postsurgical changes of the left femur. The hardware appears intact. Soft tissues: Unremarkable. Other findings: Stigmata of old granulomatous disease. IMPRESSION: 1. Nonspecific bowel wall thickening of the small bowel. Please exclude enteritis. 2. Urinary bladder wall thickening could be due to low urine volume. Please exclude infection. 3. Nonobstructing left renal calculus.
[2023-03-25 01:04] VITALS: BP 174/101; PULSE 105; O2SAT 93
[2023-03-25 01:11] LABS: Basophils % 0.6 % (0.1-2.0); Eosinophils # 0.1 K/mm3 (0.0-0.4); Eosinophils % 1.9 % (0.1-12.0); Hematocrit 43.8 % (42.0-52.0); Hemoglobin 15.2 g/dL (14.1-18.0); Lymphocytes # 1.7 K/mm3 (0.7-4.5); Lymphocytes % 25.5 % (10-50); Mean Corpuscular HGB Conc 34.8 g/dL (31.8-35.4); Mean Corpuscular Hemoglobin 31.6 pg (27.0-31.2); Mean Corpuscular Volume 90.7 fl (80-94); Mean Platelet Volume 8.8 fl (7.4-10.4); Monocytes # 0.4 K/mm3 (0.1-1.0); Neutrophils # 4.5 K/mm3 (1.8-7.8); Neutrophils % 66.1 % (37.0-80.0); Platelet Count 117 K/mm3 (142-424); Red Blood Count 4.82 M/mm3 (4.60-6.20); Red Cell Distribution Width 13.8 % (11.5-17.5); White Blood Count 6.7 K/mm3 (4.8-10.8)
[2023-03-25 01:17] LABS: Chloride 97 mmol/L (98-107); Potassium 3.7 mmoL/L (3.5-5.1); Sodium 139 mmol/L (136-145)
[2023-03-25 01:19] LABS: Alanine Aminotransferase 26 U/L (12-78); Albumin Level 4.5 g/dl (3.5-5.0); Alkaline Phosphatase 74 U/L (38-126); Amylase 64 U/L (30-110); Aspartate Amino Transferase 33 U/L (17-59); Bilirubin,Indirect 0.3 mg/dL (0.0-0.9); Bilirubin,Total 0.3 mg/dl (0.2-1.3); Bilirubin,Unconjugated 0.4 mg/dL (0.0-1.1); Lipase 69 U/L (23-300); Total Protein,Serum 7.5 g/dl (6.3-8.2)
[2023-03-25 01:20] LABS: Anion Gap 17.7 mEq/L (5-15); Blood Urea Nitrogen 14 mg/dl (9-20); Calcium 9.4 mg/dl (8.4-10.2); Carbon Dioxide 28 mmol/L (22.0-30.0); Creatinine Clearance Estimated 122 mL/min (50-200); Estimated Glomerular Filt Rate 90 ml/min (>60); GFR (African American) 109 ML/MIN (>60); Glucose 99 mg/dl (74-100)
[2023-03-25 01:21] LABS: Lactic Acid 1.4 mmol/L (0.7-2.1)
[2023-03-25 01:25] LABS: C-Reactive Protein 0.9 mg/L (0-4)
[2023-03-25 01:30] VITALS: BP 138/93; PULSE 89; O2SAT 95
[2023-03-25 01:35] LABS: Microscopic, Urine URINE MICROSCOPIC (MICROSCOPIC)
[2023-03-25 01:38] LABS: Appearance,Urine CLEAR (Clear); Bilirubin,Urine Negative (Negative); Blood, Urine 3+ (Negative); Color,Urine YELLOW (Yellow); Glucose,Urine (UA) Negative (Negative); Ketones,Urine Negative (Negative); Leukocyte Esterase,Urine Negative (Negative); Nitrate,Urine Negative (Negative); PH,Urine 5.5 (5.0-8.5); Protein,Urine TRACE (Negative); Specific Gravity, Urine >= 1.030 (1.005-1.030); Urobilinogen,Urine 0.2 EU/dl (0.2)
[2023-03-25 01:39] LABS: Erythrocyte Sedimentation Rate 13 mm/hr (0-15)
[2023-03-25 01:50] LABS: Bacteria,Urine 1+ /lpf; Mucus,Urine 1+ /lpf; WBC,Urine Occasional #/hpf (0-3)
--- NOTE | 2023-03-25 03:42 | HMH.EDABDPAI ---
Discharge Plan Disposition Patient Disposition: Home, Self-Care Prescriptions Prescriptions: New prednisone [prednisone] 20 mg tablet 20 mg PO BID Qty: 10 0RF levofloxacin 500 mg tablet 500 mg PO DAILY Qty: 7 0RF No Action ropinirole 2 mg tablet 2 mg PO DAILY Qty: 30 2RF ibuprofen [IBU] 800 mg tablet 800 mg PO Q8HP PRN (Reason: Moderate Pain) Qty: 30 0RF Referrals Follow up/Referrals: Dell Cortes MD [Primary Care Provider] - See instructions Juan Crooks MD [Referring] - See instructions Clinical Impressions Clinical Impression: Acute left flank pain, Hematuria, Allergic reaction to contrast dye Instructions Patient Instructions: DI for General Allergic Reactions, DI for Hematuria, DI for Flank Pain Discharge ED Provider: Sophia (ED)Dell Abdominal Pain HPI General Chief Complaint: Abdominal Pain Stated Complaint: Left side pain Time Seen by Provider: 03/25/23 03:42 Mode of Arrival: Family Vehicle Source of Information: Patient and Medical Record Limitations: No Limitations Description of Symptoms (Recalled from ER Triage Doc. by RN): 27 yo male presents with complains of LUQ abd pain, afebrile, last bm earlier this date and normal to patient; voiding as per normal; denies vomiting, nausea,diarrhea,constipation. Patient states he has had a diagnosis of splenomegaly and has had for a year and they are just watching it . Patient is tearful, apologetic for crying, and unable to attain a comfortable position on the bed per his statement. Afebrile. Tobacco user. History of Present Illness HPI narrative: pt with lt sided pain and reports episodes of hematuria - no fever or trauma or rash complaint: flank pain Onset (ago): hour(s) Consistency: intermittent Location: L flank Severity: moderate Associated symptoms: denies other symptoms Related Data Previous Rx's Medication Instructions Recorded ibuprofen 800 mg tablet (IBU) 800 mg PO Q8HP PRN Moderate Pain 01/13/23 #30 tabs ropinirole 2 mg tablet 2 mg PO DAILY #30 tabs 02/16/23 levofloxacin 500 mg tablet 500 mg PO DAILY #7 tabs 03/25/23 prednisone 20 mg tablet 20 mg PO BID #10 tabs 03/25/23 Allergies Allergy/AdvReac Type Severity Reaction Status Date / Time No Known Allergies Allergy Verified 02/16/23 13:32 [facility] Disclaimer: The information contained in this section may have been updated after the patient was seen, as this information can be updated by other users. Social History Smoking Status: Light tobacco smoker tobacco type: smokeless tobacco alcohol intake: never substance use type: denies use current occupational status: other Travel in the last 8 weeks: None household members: spouse housing: house ROS Obtained: Yes All systems reviewed & no additional complaints except as documented Physical Exam General General appearance: alert Head Head exam: normocephalic Eye Eye exam: Present PERRL and EOMI ENT ENT exam: Present mucous membranes moist Neck Neck exam: Present trachea midline Respiratory Respiratory exam: Present normal lung sounds bilaterally; Absent respiratory distress Cardiovascular Cardiovascular exam: Present regular rate Abdominal Exam Abdominal exam: Present soft and tenderness; Absent guarding Abdominal tenderness: Present LUQ and moderate Extremities Exam Extremities exam: Present full ROM Back Exam Back exam: Absent CVA tenderness (L) Neurological Exam Neurological exam: Present alert, oriented X3 and CN II-XII intact; Absent motor sensory deficit Psychiatric Psychiatric exam: Present normal affect Skin Skin exam: Absent rash Medical Decision Making Medical Records Medical records reviewed: Yes I reviewed the patient's medical records. [place] Inquiry Pt receiving controlled substance: No Vital Signs: 03/25/23 00:50 03/25/23 01:04 03/25/23 01:30 Temperature 98.2 F Temperature Source Or
[2023-03-25 03:48] VITALS: BP 138/93; PULSE 89; RESP 16; TEMP 37.2; O2SAT 96
== END 2023-03-25 05:16 | disposition home or self-care (01) ==
PROVIDERS: Emergency Provider Emergency Medicine; PCP Emergency Medicine
DX: R10.2 Pelvic and perineal pain (principal); R31.9 Hematuria, unspecified; T50.8X5A Adverse effect of diagnostic agents, initial encounter; F17.290 Nicotine dependence, other tobacco product, uncomplicated
CPT/HCPCS: 74177; 80048; 80076; 81001; 82150; 83605; 83690; 84145; 85025; 85651; 86140; 87040; 87086; 96361; 96374; 96375; 99284; 99285; J0131; Q9967

== ENCOUNTER 2023-04-27 01:12 | Emergency (ER) | payer SELFPAY ==
[2023-04-27 01:12] VITALS: BP 199/92; PULSE 102; RESP 18; TEMP 36.6; O2SAT 96; BMI 28.0
--- NOTE | 2023-04-27 02:09 | HMH.EDSKAF ---
Discharge Plan Disposition Patient Disposition: Home, Self-Care Prescriptions Prescriptions: New prednisone [prednisone] 20 mg tablet 20 mg PO BID Qty: 10 0RF No Action ropinirole 2 mg tablet 2 mg PO DAILY Qty: 30 2RF prednisone [prednisone] 20 mg tablet 20 mg PO BID Qty: 10 0RF levofloxacin 500 mg tablet 500 mg PO DAILY Qty: 7 0RF ibuprofen [IBU] 800 mg tablet 800 mg PO Q8HP PRN (Reason: Moderate Pain) Qty: 30 0RF Referrals Follow up/Referrals: Dell Cortes MD [Primary Care Provider] - See instructions Clinical Impressions Clinical Impression: Contact dermatitis, Poison erna dermatitis Instructions Patient Instructions: DI for Poison Erna Allergy Discharge ED Provider: Sophia (ED)Dell Skin/Abscess/FB HPI General Chief complaint: Skin/Abscess/Foreign Body Stated complaint: Possible poision erna Time Seen by Provider: 04/27/23 01:30 Mode of Arrival: Ambulatory Source of Information: Patient and Medical Record Limitations: No Limitations Description of Symptoms (Recalled from ER Triage Doc. by RN): pt reports to have gotten into some kind of poisonivy 3 days ago and the itch has spread and is getting worse History of Present Illness HPI narrative: pt with poison erna rash complaint: rash Onset (ago): day(s) Location: generalized Severity: moderate Associated symptoms: denies other symptoms Treatments prior to arrival: OTC topical medication Related Data Previous Rx's Medication Instructions Recorded ibuprofen 800 mg tablet (IBU) 800 mg PO Q8HP PRN Moderate Pain 01/13/23 #30 tabs ropinirole 2 mg tablet 2 mg PO DAILY #30 tabs 02/16/23 levofloxacin 500 mg tablet 500 mg PO DAILY #7 tabs 03/25/23 prednisone 20 mg tablet 20 mg PO BID #10 tabs 03/25/23 prednisone 20 mg tablet 20 mg PO BID #10 tabs 04/27/23 Allergies Allergy/AdvReac Type Severity Reaction Status Date / Time No Known Allergies Allergy Verified 02/16/23 13:32 [facility] Disclaimer: The information contained in this section may have been updated after the patient was seen, as this information can be updated by other users. Social History Smoking Status: Smoker, status unknown tobacco type: smokeless tobacco alcohol intake: never substance use type: denies use current occupational status: other Travel in the last 8 weeks: None household members: spouse housing: house ROS Obtained: Yes All systems reviewed & no additional complaints except as documented Physical Exam General General appearance: alert Head Head exam: normocephalic Eye Eye exam: Present PERRL and EOMI ENT ENT exam: Present mucous membranes moist Neck Neck exam: Present trachea midline Respiratory Respiratory exam: Absent respiratory distress Cardiovascular Cardiovascular exam: Present regular rate Abdominal Exam Abdominal exam: Present soft Extremities Exam Extremities exam: Present full ROM Neurological Exam Neurological exam: Present alert, oriented X3 and CN II-XII intact; Absent motor sensory deficit Psychiatric Psychiatric exam: Present normal affect Skin Skin exam: Present rash (consistent with poison erna) Medical Decision Making Medical Records Medical records reviewed: Yes I reviewed the patient's medical records. [place] Inquiry Pt receiving controlled substance: No Vital Signs: 04/27/23 01:12 Temperature 97.8 F Temperature Source Oral Pulse Rate [Left] 102 H Respiratory Rate 18 Blood Pressure [Right Arm] 199/92 H Blood Pressure Mean [Right Arm] 127 02 Sat by Pulse Oximetry 96 Oxygen Delivery Method Room Air Orders (Tests/Meds): ED MEDICATIONS Generic Name Dose Route Start Last Admin Trade Name Freq PRN Reason Stop Dose Admin Dexamethasone Sodium Phosphate 8 mg 04/27/23 02:15 Dexamethasone 4mg/Ml 5ml Mdv IM 05/27/23 02:14 Q6H [facility] Medical Decision Narrative: will use meds and see pcp for fol
[2023-04-27 02:12] VITALS: BP 147/87; PULSE 91; RESP 18; TEMP 36.6; O2SAT 97
== END 2023-04-27 02:17 | disposition home or self-care (01) ==
PROVIDERS: Emergency Provider Emergency Medicine; PCP Emergency Medicine
DX: L23.7 Allergic contact dermatitis due to plants, except food (principal); W60.XXXA Contact with nonvenomous plant thorns and spines and sharp leaves, initial encounter
CPT/HCPCS: 96372; 99283; 99284

== ENCOUNTER 2023-07-23 01:05 | Observation (INO) | payer OTHER, SELFPAY ==
[2023-07-23] VITALS (13 sets, daily range): BP systolic 118–160; BP diastolic 73–98; PULSE 80–129; RESP 16–18; TEMP 36.8–37.2; O2SAT 84–97; BMI 28.3; BMI 27.5
--- NOTE | 2023-07-23 01:08 | ECG_ITS ---
APPROVED REPORT Exam: Resting ECG HR:106 bpm ECG Measurements Heart Rate 106 AXES SC 129 P 47 QRSd 85 QRS 78 QT 322 T 69 QTc 384 Conclusion SINUS TACHYCARDIA ABNORMAL RHYTHM ECG UNCONFIRMED REPORT Electronically signed by : Que Paige MD 07/24/2023 15:07:33
--- NOTE | 2023-07-23 01:17 | XR_ITS ---
PROCEDURE INFORMATION: Exam: XR Chest Exam date and time: 07/23/2023 1:43 AM Age: 27 years old Clinical indication: Wheezing; Additional info: Od, possible aspiration TECHNIQUE: Imaging protocol: Radiologic exam of the chest. Views: 1 view. COMPARISON: CR XR CHEST 2V 12/05/2022 7:47 PM FINDINGS: Lungs: Left upper lung and bilateral perihilar reticular opacities are noted. Pleural spaces: No pleural effusion. No pneumothorax. Heart/Mediastinum: Cardiac silhouette is normal in size for technique. Bones/joints: Age appropriate. IMPRESSION: Left upper lung in bilateral perihilar reticular opacities may reflect asymmetric edema or developing pneumonitis. Pattern is atypical for aspiration, but aspiration is not excluded.
--- NOTE | 2023-07-23 01:37 | HMH.EDGENADL ---
Discharge Plan Disposition Patient Disposition: Admitted Condition: Fair Chief Complaint: Overdose Clinical Impressions Clinical Impression: Opiate overdose, Hemoptysis Respiratory failure Qualifiers: Chronicity: acute Respiratory failure complication: hypoxia and hypercapnia Qualified Code(s): J96.01 - Acute respiratory failure with hypoxia; J96.02 - Acute respiratory failure with hypercapnia Discharge ED Provider: Wilfred Gonsalez Adult HPI General Chief complaint: Overdose Stated complaint: Overdose Time Seen by Provider: 07/23/23 01:11 Mode of Arrival: EMS Source of Information: Patient and EMS Limitations: No Limitations Description of Symptoms (Recalled from ER Triage Doc. by RN): Patient reports he took a pill he believed to be oxycodone. EMS reports patient found unresponsive and was given 2mg of narcan. Patient states he has been clean for 8 months prior to tonight. History of Present Illness HPI narrative: 27-year-old male reportedly previously healthy presents after unintentional overdose. Quoc? called EMS after she found him purple and unresponsive, barely breathing. She reports that she struck with sternal rubbing him for [id number] minutes. EMS administered 2 mg of IV Narcan with immediate revival. Patient tachycardic and satting low 90s in route per EMS. Patient reports that he has no acute complaints aside from nausea. He reports that he has been congested and feeling sick recently, no reported fevers. He reports that he has been clean for a long time but took what he thought to be oxycodone tonight. He thinks it was likely fentanyl. He denies any history of IV use. Fianc? reports that he had a seizure-like episode early on, consisting of generalized tensing and shaking, lasting approximate 1 minute. Related Data Previous Rx's Medication Instructions Recorded ibuprofen 800 mg tablet (IBU) 800 mg PO Q8HP PRN Moderate Pain 01/13/23 #30 tabs ropinirole 2 mg tablet 2 mg PO DAILY #30 tabs 02/16/23 levofloxacin 500 mg tablet 500 mg PO DAILY #7 tabs 03/25/23 prednisone 20 mg tablet 20 mg PO BID #10 tabs 03/25/23 prednisone 20 mg tablet 20 mg PO BID #10 tabs 04/27/23 Allergies Allergy/AdvReac Type Severity Reaction Status Date / Time No Known Allergies Allergy Verified 02/16/23 13:[address] [facility] Disclaimer: The information contained in this section may have been updated after the patient was seen, as this information can be updated by other users. Social History Smoking Status: Never smoker alcohol intake: never substance use type: denies use current occupational status: other Travel in the last 8 weeks: None household members: spouse housing: house ROS Obtained: Yes All systems reviewed & no additional complaints except as documented Physical Exam General General appearance: alert and in no apparent distress Head Head exam: atraumatic and normocephalic Eye Eye exam: Present normal appearance, PERRL and EOMI ENT ENT exam: Present normal oropharynx and normal external ear exam Neck Neck exam: Present normal inspection and full ROM Chest Chest inspection: Present normal inspection and symmetric chest wall rise; Absent tenderness Respiratory Respiratory exam: Present other (Coarse breath sounds bilaterally); Absent respiratory distress Cardiovascular Cardiovascular exam: Present normal rhythm and tachycardia Abdominal Exam Abdominal exam: Present soft; Absent distention, tenderness or guarding Extremities Exam Extremities exam: Present normal inspection; Absent edema or joint swelling Back Exam Back exam: Present normal inspection; Absent tenderness Neurological Exam Neurological exam: Present alert and oriented X3; Absent motor sensory deficit Psychiatric Psychiatric exam: Present normal affect and anxious Skin Skin exam: Present warm, dry and normal color Lymphatic Lymphatic Findings: no adenopathy
[2023-07-23 02:31] LABS: Basophils # 0.1 K/mm3 (0-0.2); Basophils % 0.7 % (0.1-2.0); Eosinophils # 0.2 K/mm3 (0.0-0.4); Eosinophils % 2.3 % (0.1-12.0); Hematocrit 51.9 % (42.0-52.0); Hemoglobin 17.4 g/dL (14.1-18.0); Lymphocytes # 1.3 K/mm3 (0.7-4.5); Lymphocytes % 14.4 % (10-50); Mean Corpuscular HGB Conc 33.5 g/dL (31.8-35.4); Mean Corpuscular Hemoglobin 31.1 pg (27.0-31.2); Mean Corpuscular Volume 92.7 fl (80-94); Mean Platelet Volume 9.3 fl (7.4-10.4); Monocytes # 0.4 K/mm3 (0.1-1.0); Monocytes % 4.1 % (1.7-9.3); Neutrophils # 7.1 K/mm3 (1.8-7.8); Neutrophils % 78.6 % (37.0-80.0); Platelet Count 149 K/mm3 (142-424); Red Cell Distribution Width 12.6 % (11.5-17.5)
[2023-07-23 02:32] LABS: Chloride 95 mmol/L (98-107); Potassium 3.9 mmoL/L (3.5-5.1); Sodium 135 mmol/L (136-145)
[2023-07-23 02:34] LABS: VBG Base Excess -2.7 mmol/L (-2.4-2.3); VBG HCO3 24.3 mmol/L (23-30); VBG Oxygen Saturation 68.1 % (50-70); VBG PCO2 54.7 mmol/L (35-51); VBG PH 7.27 mmol/L (7.31-7.41)
[2023-07-23 02:35] LABS: Alanine Aminotransferase 36 U/L (12-78); Albumin Level 4.3 g/dl (3.5-5.0); Albumin/Globulin Ratio 1.5 (1.1-1.8); Alkaline Phosphatase 97 U/L (38-126); Anion Gap 18.9 mEq/L (5-15); Aspartate Amino Transferase 45 U/L (17-59); Blood Urea Nitrogen 16 mg/dl (9-20); Carbon Dioxide 25 mmol/L (22.0-30.0); Creatinine Clearance Estimated 94 mL/min (50-200); Estimated Glomerular Filt Rate 67 ml/min (>60); GFR (African American) 81 ML/MIN (>60); Globulin 2.9 g/dL (1.3-3.2); Total Protein,Serum 7.2 g/dl (6.3-8.2)
[2023-07-23 02:36] LABS: Calcium 9.4 mg/dl (8.4-10.2); Glucose 296 mg/dl (74-100)
--- NOTE | 2023-07-23 02:59 | PC.NURSE ---
OBSERVATION ADMISSION TO 211 WITH DX OF DRUG OVERDOSE WITH ABNORMAL VITALS TO SERVICE OF THE HOSPITALIST.
--- NOTE | 2023-07-23 03:04 | PC.NURSE ---
on phone with hospitalist
--- NOTE | 2023-07-23 03:04 | PC.NURSE ---
o/p with Riki the Hospitalist.
--- NOTE | 2023-07-23 03:14 | EXP.HP ---
History of Present Illness *Admission Date: 07/23/23 *Reason for visit:: hypoxia and pulmonary edema *History of present illness: 27-year-old male presented to the ED after unintentional overdose. PMHX of PTSD, asthma, COVID, and splenomegaly. Quoc? called EMS after she found him purple and unresponsive, barely breathing. She reports that she struck with sternal rubbing him for [id number] minutes. Upon EMS arrival pt was administered 2 mg of IV Narcan with immediate revival. Patient c/o nausea. He reports that he has been clean for a long time but took what he thought to be oxycodone tonight. He thinks it was likely fentanyl. He denies any history of IV use. Fianc? reports that he had a seizure-like episode early on, consisting of generalized tensing and shaking, lasting approximate 1 minute. In the ED the patient was hypoxic requiring 2L of oxygen. His chest xray reveals upper left lobe pulmonary edema. He has an UNRULY with a creatinine of 1.30. In the ED he started to destat to 80 % while sleeping and was starting to cough up pink frothy sputum. The ED physician then consulted the hospitalist team for further medical management and observation. The pt arrives to the medical floor in no acute distress. He has no c/o pain, difficulty breathing, or nausea. He is alert and oriented X 4. He denies any thoughts of SI or attempts of self harm. He states he has been going through a lot and has PTSD. I explained to him that we would recheck his labs in the morning along with a chest xray. He received 1L LR in the ED and is tolerating oral intake. Encouraged to increase oral intake. [facility] Disclaimer: The information contained in this section may have been updated after the patient was seen, as this information can be updated by other users. Medical History (Updated 07/23/23 @ 03:59 by KATHIE Julien) Asthma Hx of fracture of femur PTSD (post-traumatic stress disorder) Social History (Updated 07/23/23 @ 03:58 by Ingrid De La Torre RN) Smoking Status: Never smoker alcohol intake: never substance use type: denies use current occupational status: other Travel in the last 8 weeks: None household members: spouse and children housing: house Review of Systems *Cardiovascular Cardiovascular: Reports system reviewed and no additional complaints, except as documented *Respiratory Respiratory: Reports system reviewed and no additional complaints, except as documented *Gastrointestinal Gastrointestinal: Reports nausea *Genitourinary Genitourinary: Reports system reviewed and no additional complaints, except as documented *Musculoskeletal Musculoskeletal: Reports system reviewed and no additional complaints, except as documented *Neurologic Neurologic: Reports system reviewed and no additional complaints, except as documented Meds Home Medications and Allergies Home Medications Medication Instructions Recorded Confirmed Type albuterol sulfate 90 mcg/actuation 2 puff inhalation QIDRT PRN 07/23/23 Rx aerosol inhaler (Ventolin HFA) Shortness Of Breath Or Wheezing #1 g amoxicillin 875 mg-potassium 1 tab PO Q12H #20 tabs 07/23/23 Rx clavulanate 125 mg tablet New Prescriptions to Start Prescriptions: albuterol sulfate [Ventolin HFA] Emeric,Brian amoxicillin-pot clavulanate Emeric,Brian Allergies Allergy/AdvReac Type Severity Reaction Status Date / Time No Known Allergies Allergy Verified 02/16/23 13:32 Exam Data for Last 24 hours Vital signs and Labs for Last 24 Hours: Temp Pulse Resp BP Pulse Ox O2 Del Method 98.5 F 101 H 18 128/79 95 Room Air 07/23/23 01:05 07/23/23 03:00 07/23/23 01:05 07/23/23 03:00 07/23/23 03:00 07/23/23 01:05 Laboratory Results - last 24 hr 07/23/23 01:15: WBC 9.0, RBC 5.60, Hgb 17.4, Hct 51.9, MCV 92.7, MCH 31.1, MCHC 33.5, RDW 12.6, Plt Count 149, MPV 9.3, Neut % (Auto) 78.6, Lymph % (A
--- NOTE | 2023-07-23 03:16 | PC.NURSE ---
Report called to MYRNA Quintero
[2023-07-23 03:23] LABS: Creatine Kinase 219 U/L (55-170)
--- NOTE | 2023-07-23 05:12 | PC.NURSE ---
Since arriving to the floor the patient The patient has remained AxO x4. He has rested comfortably.
--- NOTE | 2023-07-23 07:00 | XR_ITS ---
PROCEDURE INFORMATION: Exam: XR Chest Exam date and time: 07/23/2023 8:03 AM Age: 27 years old Clinical indication: Shortness of breath; Additional info: Hypoxia TECHNIQUE: Imaging protocol: Radiologic exam of the chest. Views: 1 view. COMPARISON: CR XR CHEST PORTABLE 07/23/2023 1:43 AM FINDINGS: Lungs: Bilateral left greater than right perihilar opacities not significantly changed. Pleural spaces: Unremarkable. No pleural effusion. No pneumothorax. Heart/Mediastinum: Unremarkable. No cardiomegaly. Bones/joints: Unremarkable. IMPRESSION: Bilateral left greater than right perihilar opacities not significantly changed.
[2023-07-23 08:29] LABS: Creatine Kinase 184 U/L (55-170)
[2023-07-23 08:30] LABS: Anion Gap 12.2 mEq/L (5-15); Blood Urea Nitrogen 14 mg/dl (9-20); Calcium 8.7 mg/dl (8.4-10.2); Carbon Dioxide 29 mmol/L (22.0-30.0); Chloride 98 mmol/L (98-107); Creatinine Clearance Estimated 132 mL/min (50-200); Estimated Glomerular Filt Rate 102 ml/min (>60); GFR (African American) 123 ML/MIN (>60); Glucose 121 mg/dl (74-100); Potassium 4.2 mmoL/L (3.5-5.1); Sodium 135 mmol/L (136-145)
[2023-07-23 08:31] LABS: Basophils # 0.1 K/mm3 (0-0.2); Basophils % 0.4 % (0.1-2.0); Eosinophils # 0.1 K/mm3 (0.0-0.4); Eosinophils % 0.6 % (0.1-12.0); Hematocrit 47.6 % (42.0-52.0); Hemoglobin 15.9 g/dL (14.1-18.0); Lymphocytes # 1.2 K/mm3 (0.7-4.5); Lymphocytes % 9.1 % (10-50); Mean Corpuscular HGB Conc 33.4 g/dL (31.8-35.4); Mean Corpuscular Hemoglobin 30.5 pg (27.0-31.2); Mean Corpuscular Volume 91.5 fl (80-94); Monocytes # 0.6 K/mm3 (0.1-1.0); Monocytes % 4.3 % (1.7-9.3); Neutrophils # 11.7 K/mm3 (1.8-7.8); Neutrophils % 85.7 % (37.0-80.0); Platelet Count 148 K/mm3 (142-424); Red Blood Count 5.21 M/mm3 (4.60-6.20); Red Cell Distribution Width 12.6 % (11.5-17.5); White Blood Count 13.7 K/mm3 (4.8-10.8)
[2023-07-23 08:43] LABS: MANUAL DIFFERENTIAL MANUAL DIFFERENTIAL (MANUAL DIFF)
--- NOTE | 2023-07-23 10:33 | EXP.DC.SUM ---
General Admission date:: 07/23/23 Discharge date: 07/23/23 HPI HPI HPI: 27-year-old male presented to the ED after unintentional overdose. PMHX of PTSD, asthma, COVID, and splenomegaly. Ted called EMS after she found him purple and unresponsive, barely breathing. She reports that she struck with sternal rubbing him for [id number] minutes. Upon EMS arrival pt was administered 2 mg of IV Narcan with immediate revival. Patient c/o nausea. He reports that he has been clean for a long time but took what he thought to be oxycodone tonight. He thinks it was likely fentanyl. He denies any history of IV use. Quoc? reports that he had a seizure-like episode early on, consisting of generalized tensing and shaking, lasting approximate 1 minute. In the ED the patient was hypoxic requiring 2L of oxygen. His chest xray reveals upper left lobe pulmonary edema. He has an UNRULY with a creatinine of 1.30. In the ED he started to destat to 80 % while sleeping and was starting to cough up pink frothy sputum. The ED physician then consulted the hospitalist team for further medical management and observation. The pt arrives to the medical floor in no acute distress. He has no c/o pain, difficulty breathing, or nausea. He is alert and oriented X 4. He denies any thoughts of SI or attempts of self harm. He states he has been going through a lot and has PTSD. I explained to him that we would recheck his labs in the morning along with a chest xray. He received 1L LR in the ED and is tolerating oral intake. Encouraged to increase oral intake. Hospital Course Hospital Course Hospital Course: The patient was admitted to the medical floor with telemetry monitoring. He was provided IV fluid resuscitation. His laboratory studies and inflammatory markers were trended and identified improvement. His renal function returned to normal. His significant other was at bedside on day of discharge. He requested to be discharged home to follow-up with his PCP. He plans to seek counseling for his history of illicit drug use. He denied IV drug use. I was accompanied by his nurse for discharge planning. I have recommended discharge on oral antibiotic for aspiration pneumonitis with findings on chest x-ray. I spent 35 minutes in [id number] time with the patient, significant other at bedside and nursing staff concerning the discharge process. We discussed the admitting diagnoses and hospital course. We discussed identified improvement and the patient's desire to be discharged. We reviewed inpatient studies and imaging. The patient voiced understanding on the importance of follow-up with his primary care provider and counseling for his opioid dependency. The patient plans to be compliant with the medication regimen prescribed and follow-up appointments. He understands that he can return to the emergency department with any sudden changes or concerns. Exam Data for Last 24 hours Vital signs and Labs for Last 24 Hours: Temp Pulse Resp BP Pulse Ox O2 Del Method O2 Flow Rate 99.0 F 80 18 136/78 93 L Nasal Cannula 1 07/23/23 07:30 07/23/23 08:00 07/23/23 07:30 07/23/23 07:30 07/23/23 07:30 07/23/23 09:00 07/23/23 09:00 Laboratory Results - last 24 hr 07/23/23 01:15: WBC 9.0, RBC 5.60, Hgb 17.4, Hct 51.9, MCV 92.7, MCH 31.1, MCHC 33.5, RDW 12.6, Plt Count 149, MPV 9.3, Neut % (Auto) 78.6, Lymph % (Auto) 14.4, [place] % (Auto) 4.1, Eos % (Auto) 2.3, Baso % (Auto) 0.7, Neut # (Auto) 7.1, Lymph # (Auto) 1.3, [place] # (Auto) 0.4, Eos # (Auto) 0.2, Baso # (Auto) 0.1, Sodium 135 L, Potassium 3.9, Chloride 95 L, Carbon Dioxide 25, Anion Gap 18.9 H, BUN 16, Creatinine 1.30 H, Estimated Creat Clear 94, Estimated GFR 67, Est GFR ( Amer) 81, Glucose 296 H, Calcium 9.4, Total Bilirubin 1.0, AST 45, ALT 36, Alkaline Phosphatase 97, Total Creatine Kinase 219 H, Total Protein 7.2, Albumin 4.3, Globulin 2.9, Albumin/Globulin Ratio 1.5 07/23/23 02:26: VBG pH 7.27 L, VBG pCO2 5
[2023-07-23 15:48] LABS: Lymphocytes % 6 % (10-50); Monocytes % 2 % (2-9); Neutrophils % 92 % (42-76); Platelet Estimate Normal; RBC Morphology Normal; Total Cells Counted 100
--- NOTE | 2023-07-25 14:37 | CARE MANAGER ---
Contacted patient related to hospital discharge. Patient states he is doing better but he is concerned about his breathing at night. He states he has woken up gasping for air. He mad an appt with Dr. Cortes but it is not for a week and a half. Suggested he call back down there and do a follow up with any provider and maybe he could get in sooner. He agrees to try this. Denies any other questions or concerns. MYRNA Pedersen
== END 2023-07-23 13:57 | disposition home or self-care (01) ==
LOC: ER 01:18 → 2ND 03:03
PROVIDERS: Nurse Practitioner Critical Care Medicine; Admitting Provider Family Medicine; Emergency Provider Emergency Medicine; PCP Emergency Medicine; Visit Provider Family Medicine
DX: T40.411A Poisoning by fentanyl or fentanyl analogs, accidental (unintentional), initial encounter (principal); Y92.019 Unspecified place in single-family (private) house as the place of occurrence of the external cause; F43.10 Post-traumatic stress disorder, unspecified; R09.02 Hypoxemia; J81.1 Chronic pulmonary edema; N17.9 Acute kidney failure, unspecified; J45.909 Unspecified asthma, uncomplicated
CPT/HCPCS: 71045; 80048; 80053; 82550; 82803; 85007; 85025; 93005; 94618; 99291; G0378; J2405

== ENCOUNTER 2023-11-05 16:43 | Emergency (ER) | payer OTHER, SELFPAY ==
[2023-11-05 16:44] VITALS: BP 149/99; PULSE 140; RESP 18; TEMP 36.6; O2SAT 99; BMI 28.0
[2023-11-05 17:03] LABS: Microscopic, Urine URINE MICROSCOPIC (MICROSCOPIC)
[2023-11-05 17:12] LABS: Chloride 100 mmol/L (98-107); Sodium 134 mmol/L (136-145)
[2023-11-05 17:13] LABS: Potassium 3.8 mmoL/L (3.5-5.1)
[2023-11-05 17:14] LABS: Basophils # 0.1 K/mm3 (0-0.2); Basophils % 0.6 % (0.1-2.0); Eosinophils # 0.1 K/mm3 (0.0-0.4); Eosinophils % 1.5 % (0.1-12.0); Hematocrit 51.8 % (42.0-52.0); Lymphocytes # 2.6 K/mm3 (0.7-4.5); Lymphocytes % 29.4 % (10-50); Mean Corpuscular HGB Conc 35.8 g/dL (31.8-35.4); Mean Corpuscular Hemoglobin 32.2 pg (27.0-31.2); Mean Platelet Volume 9.1 fl (7.4-10.4); Monocytes # 0.6 K/mm3 (0.1-1.0); Monocytes % 6.3 % (1.7-9.3); Neutrophils # 5.5 K/mm3 (1.8-7.8); Neutrophils % 62.2 % (37.0-80.0); Platelet Count 220 K/mm3 (142-424); Red Blood Count 5.76 M/mm3 (4.60-6.20); Red Cell Distribution Width 12.9 % (11.5-17.5); White Blood Count 8.8 K/mm3 (4.8-10.8)
[2023-11-05 17:15] LABS: Alanine Aminotransferase 31 U/L (12-78); Alkaline Phosphatase 107 U/L (38-126); Amylase 52 U/L (30-110); Anion Gap 16.8 mEq/L (5-15); Aspartate Amino Transferase 38 U/L (17-59); Bilirubin,Total 0.8 mg/dl (0.2-1.3); Blood Urea Nitrogen 10 mg/dl (9-20); Calcium 9.6 mg/dl (8.4-10.2); Carbon Dioxide 21 mmol/L (22.0-30.0); Creatinine Clearance Estimated 103 mL/min (50-200); Estimated Glomerular Filt Rate 73 ml/min (>60); GFR (African American) 88 ML/MIN (>60); Glucose 140 mg/dl (74-100)
[2023-11-05 17:16] LABS: Albumin/Globulin Ratio 1.4 (1.1-1.8); Globulin 3.6 g/dL (1.3-3.2); Lipase 78 U/L (23-300); Total Protein,Serum 8.6 g/dl (6.3-8.2)
[2023-11-05 17:20] LABS: Appearance,Urine CLEAR (Clear); Bilirubin,Urine Negative (Negative); Blood, Urine Negative (Negative); Color,Urine YELLOW (Yellow); Glucose,Urine (UA) Negative (Negative); Ketones,Urine Negative (Negative); Leukocyte Esterase,Urine Negative (Negative); Nitrate,Urine Negative (Negative); PH,Urine 6.5 (5.0-8.5); Protein,Urine Negative (Negative); Specific Gravity, Urine <= 1.005 (1.005-1.030); Urobilinogen,Urine 0.2 EU/dl (0.2)
[2023-11-05 17:33] LABS: Squamous Epithelial Cell,Urine Occasional #/hpf (0-5)
--- NOTE | 2023-11-05 17:33 | CT_ITS ---
PROCEDURE INFORMATION: Exam: CT Abdomen And Pelvis Without Contrast Exam date and time: 11/05/2023 5:49 PM Age: 28 years old Clinical indication: Abdominal pain; Acute; Patient HX: Rlq pain; Additional info: Right flank pain TECHNIQUE: Imaging protocol: Computed tomography of the abdomen and pelvis without contrast. Radiation optimization: All CT scans at this facility use at least one of these dose optimization techniques: automated exposure control; mA and/or kV adjustment per patient size (includes targeted exams where dose is matched to clinical indication); or iterative reconstruction. REPORTING DATA: Count of CT and Cardiac NM exams in prior 12 months: This patient has received [address] and 0 known cardiac nuclear medicine studies in the 12 months prior to the current study. COMPARISON: 1. CT ABDOMEN PELVIS W CON 03/25/2023 1:[address] ANGIO ABDOMEN PELVIS 06/16/2022 5:[address] ABDOMEN PELVIS W CON 01/22/2021 10:27 PM FINDINGS: Liver: Normal. No mass. Gallbladder and bile ducts: Normal. No calcified stones. No ductal dilation. Pancreas: The pancreas is of normal size and morphology, without evidence of masses, cysts, or calcifications. The pancreatic duct is not dilated. Spleen: Single calcification in the spleen may reflect a small granuloma. Adrenal glands: The adrenal glands appear normal. Kidneys and ureters: Both kidneys are of normal size and show uniform attenuation. There are no renal masses, cysts, or calculi. The adrenal glands appear normal. Stomach and bowel: The stomach, small bowel, and colon are well-distended and show no evidence of wall thickening, masses, or obstruction. Appendix: The appendix is normal in appearance. Intraperitoneal space: Unremarkable. No free air. No significant fluid collection. Vasculature: The abdominal aorta and its major branches appear normal without evidence of aneurysm or stenosis. There are pelvic phleboliths. Lymph nodes: No enlarged or pathological lymph nodes are identified in the abdomen or pelvis. Urinary bladder: Unremarkable as visualized. Reproductive: No significant pathology. Bones/joints: Intramedullary casandra in place within the left femur. Soft tissues: Unremarkable. IMPRESSION: 1. Normal appendix. 2. No definite signs of inflammatory conditions, masses, adenopathy, or collections were observed in the abdomen or pelvis at the time of imaging. Additionally, the urinary tract and gastrointestinal system did not show any evidence of obstruction on the images acquired. 3. Otherwise, incidental findings as above.
[2023-11-05 17:34] LABS: Hemoglobin 18.6 g/dL (14.1-18.0)
--- NOTE | 2023-11-05 17:42 | ED_ITS ---
Discharge Plan Disposition Patient Disposition: Home, Self-Care Referrals Follow up/Referrals: Provider,Referral, [Primary Care Provider] - See instructions Activity Restrictions/Add. Instructions Additional Instructions/Restrictions: No emergent medical problem identified that could be causing your symptoms today please return with any worsening symptoms otherwise follow-up with primary care doctor. Clinical Impressions Clinical Impression: Abdominal pain, Opioid use Instructions Patient Instructions: DI for Acute Abdominal Pain Discharge ED Provider: David Goodman Adult HPI General Chief complaint: Abdominal Pain Stated complaint: stomach pain Time Seen by Provider: 11/05/23 17:25 Mode of Arrival: Ambulatory Source of Information: Patient Limitations: No Limitations Description of Symptoms (Recalled from ER Triage Doc. by RN): pt presents to ED c/o right upper and lower abdominal pian that started approx 1.5 hr ago. pt denies fever or diarrhea. pt reports one episode of vomiting. pt crying and anxious during triage. History of Present Illness HPI narrative: Patient is a 28-year-old male presents today with sudden right mid abdominal pain that began about 1-1/2 hours ago. Patient denies any hematuria any history of any kidney stones. No diarrhea no constipation no history of urinary symptoms fevers chills cough or any other symptoms. No history of any abdominal pathology. Of note his girlfriend called the emergency department and states that he has a history of drug use and that she is concerned that he has overdosed because of the behaviors that he has been demonstrating. Patient denies these concerns. Related Data Allergies Allergy/AdvReac Type Severity Reaction Status Date / Time No Known Allergies Allergy Verified 02/16/23 13:32 [facility] Disclaimer: The information contained in this section may have been updated after the patient was seen, as this information can be updated by other users. Medical History (Updated 11/05/23 @ 19:26 by David Goodman MD) Asthma Hx of fracture of femur PTSD (post-traumatic stress disorder) Social History (Updated 07/23/23 @ 03:58 by Ingrid De La Torre RN) Smoking Status: Current every day smoker tobacco type: smokeless tobacco alcohol intake: never substance use type: denies use current occupational status: other Travel in the last 8 weeks: None household members: spouse and children housing: house ROS Obtained: Yes All systems reviewed & no additional complaints except as documented Physical Exam General General appearance: alert Eye Eye exam: Present other (Eyes are bloodshot bilaterally with near pinpoint pupils) Respiratory Respiratory exam: Present normal lung sounds bilaterally; Absent respiratory distress Cardiovascular Cardiovascular exam: Present regular rate; Absent tachycardia Abdominal Exam Abdominal exam: Present soft; Absent tenderness Neurological Exam Neurological exam: Present alert, oriented X3, CN II-XII intact and normal gait; Absent motor sensory deficit Medical Decision Making [place] Inquiry Pt receiving controlled substance: No Vital Signs: 11/05/23 16:44 11/05/23 18:04 Temperature 97.9 F Temperature Source Oral Pulse Rate 96 H Pulse Rate [Right Radial] 140 H Respiratory Rate 18 18 Blood Pressure 156/109 H Blood Pressure [Right Arm] 149/99 H Blood Pressure Mean [Right Arm] 115 Blood Pressure Source Automatic Cuff Blood Pressure Source [Right Arm] Automatic Cuff Blood Pressure Position Sitting Blood Pressure Position [Right Arm] Sitting 02 Sat by Pulse Oximetry 99 98 Oxygen Delivery Method Room Air Room Air Lab Data Lab results reviewed: Yes I reviewed the patient's lab results. Lab Results 11/05/23 16:50: WBC 8.8, RBC 5.76, Hgb 18.6 H, Hct 51.8, MCV 90.0, MCH 32.2 H, MCHC 35.8 H, RDW 12.9, Plt Count 220, MPV 9.1, Neut % (Auto) 62.2, Lymph % (Auto) 29.4, [place] % (Auto) 6.3, Eos % (Auto) 1.5, Baso % (Auto) 0.6, Neut # (Auto) 5.5, Lymph # (Auto) 2.6, [place] # (Auto) 0.6, Eos # (Auto) 0.1, Baso # (Auto) 0.1, Sodium 134 L, Potassium 3.8, Chloride 100, Carbon Dioxide 21 L, Anion Gap 16.8 H, BUN 10, Creatinine 1.20, Estimated Creat Clear 103, Estimated GFR 73, Est GFR ( Amer) 88, Glucose 140 H, Calcium 9.6, Total Bilirubin 0.8, AST 38, ALT 31, Alkaline Phosphatase 107, Total Protein 8.6 H, Albumin 5.0, Globulin 3.6 H, Albumin/Globulin Ratio 1.4, Amylase 52, Lipase 78, Urine Color Yellow, Urine Appearance Clear, Urine pH 6.5, Ur Specific [place] <= 1.005, Urine Protein Negative, Urine Glucose (UA) Negative, Urine Ketones Negative, Urine Blood Negative, Urine Nitrate Negative, Urine Bilirubin Negative, Urine Urobilinogen 0.2, Ur Leukocyte Esterase Negative, Urine RBC None, Urine WBC None, Ur Squamous Epith Cells Occasional, Urine Bacteria None, Urine Opiates Screen Negative, Urine Methadone Screen Negative, Ur Barbituates Screen Negative, Ur Phencyclidine Scrn Negative, Ur Amphetamines Screen Positive H, U Benzodiazepines Scrn Negative, Urine Cocaine Screen Negative, U Marijuana (THC) Screen Negative 11/05/23 16:50 11/05/23 16:50 Orders (Tests/Meds): ED MEDICATIONS Generic Name Dose Route Start Last Admin Trade Name Freq PRN Reason Stop Dose Admin Sodium Chloride 10 ml 11/05/23 16:55 Sodium Chloride 0.9% 10ml Flush Syringe IV 12/05/23 16:54 NEEDED PRN Maintain IV Site Discontinued Medications Generic Name Dose Route Start Last Admin Trade Name Freq PRN Reason Stop Dose Admin Lactated Ringer's 1,000 mls @ 999 mls/hr 11/05/23 17:45 11/05/23 17:47 Lactated Ringer's 1000 Ml Bag IV 11/05/23 18:45 999 mls/hr .Q1H1M JERZY Administration Ketorolac Tromethamine 15 mg 11/05/23 17:33 11/05/23 17:47 Ketorolac 30mg/Ml Vial IV 11/05/23 17:34 15 mg ONCE ONE Administration Ondansetron HCl 4 mg 11/05/23 17:33 11/05/23 17:47 Ondansetron 4mg/2ml Vial IV 11/05/23 17:34 4 mg ONCE ONE Administration ORDERS Category Date Time Status CT abdomen pelvis wo con Stat Cat Scan 11/05/23 17:33 Completed Amylase Stat Lab 11/05/23 16:50 Completed Complete Blood Count Auto Diff Stat Lab 11/05/23 16:50 Completed Comprehensive Metabolic Panel Stat Lab 11/05/23 16:50 Completed Lipase Stat Lab 11/05/23 16:50 Completed UDS [Drug Screen,Urine] Stat Lab 11/05/23 16:50 Completed Urinalysis and Microscopic Stat Lab 11/05/23 16:50 Completed Medical Decision Narrative: 28-year-old male presenting today with right flank sudden pain that began an hour and a half prior to arrival. Differential includes kidney stone, perforated viscus, withdrawal associated with opiate use, etc. Will get a noncontrasted CT scan to further evaluate this. Urinalysis was performed which did not demonstrate any blood. UDS has been ordered. Patient has bloodshot eyes and pinpoint pupils I suspect he has been using opiates I also suspect that he possibly gave himself Narcan which caused significant worsening of his abd ominal discomfort but he denies this. Will make sure there is no emergent medical condition associated with this Toradol has been administered will not administer any more opiates Zofran and IV fluids have also been administered and will reassess. Reassessment 7:26 PM patient feeling much better walking around the emergency department asking when he can leave. I personally interpreted patient CT scan looked at radiology read as well no obvious cause of patient's symptoms identified. No emergent medical condition on the CT scan. Of note patient's urine drug screen was positive for amphetamines but he does take Adderall which is likely the cause of his positive amphetamines. When I discussed this with him he did admit to taking his grandmothers Percocet fives today which explains some of the symptoms that I described in his physical exam. No evidence of overdose at this point. He has been advised to follow-up with primary care doctor return with any worsening symptoms but he was discharged in a stable and improved condition. Critical Care Critical Care Time Critical Care Time: No
[2023-11-05] MEDS: KETOROLAC 30MG/ML VIAL 15 MG IV (17:47)
[2023-11-05] MEDS: LACTATED RINGERS 1000ML 1,000 ML 999 ML IV (17:47)
[2023-11-05] MEDS: ONDANSETRON 4MG/2ML VIAL 4 MG IV (17:47)
[2023-11-05 17:49] LABS: Barbiturates Screen,Urine Negative ng/ml (<200)
[2023-11-05 17:50] LABS: Benzodiazepines Screen,Urine Negative ng/ml (<200)
[2023-11-05 17:51] LABS: Amphetamine/Metha Screen,Urine Positive ng/ml (<1000); Cannabinoid Screen,Urine Negative ng/ml (<50)
[2023-11-05 17:52] LABS: Cocaine Screen,Urine Negative ng/ml (<300); Methadone Screen,Urine Negative ng/ml (<300)
[2023-11-05 17:53] LABS: Opiate Screen,Urine Negative ng/ml (<300)
[2023-11-05 17:54] LABS: Phencyclidine Screen,Urine Negative ng/ml (<25)
[2023-11-05 18:04] VITALS: BP 156/109; PULSE 96; RESP 18; O2SAT 98
[2023-11-05 19:23] VITALS: BP 156/98; PULSE 101; RESP 18; O2SAT 95
--- NOTE | 2023-11-05 19:26 | PC.NURSE ---
at bedside speaking w patient
[2023-11-05 19:32] VITALS: BP 156/109; PULSE 95; RESP 18; TEMP 36.8; O2SAT 96
== END 2023-11-05 19:34 | disposition home or self-care (01) ==
PROVIDERS: Emergency Provider Student in an Organized Health Care Education/Training Program
DX: R10.11 Right upper quadrant pain (principal); R10.31 Right lower quadrant pain; F17.290 Nicotine dependence, other tobacco product, uncomplicated
CPT/HCPCS: 74176; 80053; 80307; 81001; 82150; 83690; 85025; 96361; 96374; 96375; 99285; J2405

== ENCOUNTER 2023-12-20 08:34 | Emergency (ER) | payer OTHER, SELFPAY ==
[2023-12-20 08:45] VITALS: BP 133/91; PULSE 106; RESP 21; TEMP 37.2; O2SAT 98; BMI 28.2
--- NOTE | 2023-12-20 08:57 | ED_ITS ---
Discharge Plan Disposition Patient Disposition: Home, Self-Care Condition: Good Prescriptions Prescriptions: New azithromycin [Zithromax Z-Stanley] 250 mg tablet See Rx Instructions .ROUTE .COMPLEX 5 Days Qty: 6 0RF Rx Instructions: For 250 mg dose pack: take 500 mg today (day 1), then 250 mg for 4 days (days 2-5) methylprednisolone [Medrol (Stanley)] 4 mg tablets,dose pack See Rx Instructions .Route .COMPLEX 6 Days Qty: 21 0RF Rx Instructions: taper pack; guaifenesin [Mucinex] 600 mg tablet extended release 12hr 1,200 mg PO BID PRN (Reason: cough) Qty: 20 0RF Referrals Follow up/Referrals: Provider,Referral, MD [Primary Care Provider] - See instructions Activity Restrictions/Add. Instructions Additional Instructions/Restrictions: *Monitor Temp, Over the counter Motrin or Tylenol as directed/as needed Tylenol every 4 hours and Motrin every 6 hours (as long as your family doctor has told you that you can take it) for fever or pain. and straight to ER if unable to lower temp less than 101.0 after medication given *Warm salt water gargles may help to soothe the throat *Throat Lozenges? *Warm fluids like tea with honey may help to soothe the throat? *Sleep elevated *Humidifier/Vaporizer Take medication as prescribed Follow up IMMEDIATELY for new or worsening symptoms or no Noticeable improvement over the next 48-72 hours. 911 for difficulty breathing or swallowing Clinical Impressions Clinical Impression: Sinusitis Qualifiers: Sinusitis location: unspecified location Chronicity: unspecified Qualified Code(s): J32.9 - Chronic sinusitis, unspecified Stand Alone Forms Stand Alone Forms: Work/School Release Instructions Patient Instructions: DI for Sinusitis, Sinusitis Discharge ED Provider: Esther Chow [facility] General Stated complaint: cough, body aches, fever Mode of Arrival: Ambulatory Source of Information: Patient Limitations: No Limitations Time Seen by Provider: 12/20/23 08:57 Description of Symptoms (Recalled from Triage Doc. by RN): PATIENT C/O BODY ACHES, FEVER, AND COUGH X 3 DAYS HEENT Symptoms (Recalled from RN notes): No Resp Symptoms (Recalled from RN notes): Yes Skin Symptoms (Recalled from RN notes): No MS Symptoms (Recalled from RN notes): No Functional Status (Recalled from RN notes): WNL History of Present Illness Provider Complaint: Patient states that he has been having cough, body aches, chills and fever for the last 3 days States that today he wasnt feeling any better and he has been taking left over amoxicillin but it hasnt been helping so he came in to get checked thinking he may have the flu Related Data Previous Rx's Medication Instructions Recorded azithromycin 250 mg tablet See Rx Instructions PO .COMPLEX 5 12/20/23 (Zithromax Z-Stanley) days #6 tabs guaifenesin 600 mg tablet, 1,200 mg PO BID PRN cough #20 tabs 12/20/23 extended release 12 hr (Mucinex) methylprednisolone 4 mg tablets in See Rx Instructions .Route 12/20/23 a dose pack (Medrol (Stanley)) .COMPLEX 6 days #21 tabs Allergies Allergy/AdvReac Type Severity Reaction Status Date / Time No Known Allergies Allergy Verified 02/16/23 13:32 Worker's Comp Is this a Worker's Comp case?: No [facility] Disclaimer: The information contained in this section may have been updated after the maddye nt was seen, as this information can be updated by other users. Medical History (Updated 12/20/23 @ 09:11 by Esther Chow APRN) Asthma Hx of fracture of femur PTSD (post-traumatic stress disorder) Social History (Updated 07/23/23 @ 03:58 by Ingrid De La Torre RN) Smoking Status: Current every day smoker tobacco type: smokeless tobacco alcohol intake: never substance use type: denies use current occupational status: other Travel in the last 8 weeks: None household members: spouse and children housing: house ROS Obtained: Yes All systems reviewed & no additional complaints except as documented and Yes Systems reviewed as appropriate & no additional complaints except as documented Constitutional Constitutional: Reports system reviewed and no additional complaints, except as documented, Reports as per HPI, Reports body ache, Reports chills, Reports fever(s) and Reports headache(s) ENT Ears, Nose, Mouth, and Throat: Reports system reviewed and no additional complaints, except as documented, Reports as per HPI, Reports headache(s), Reports nasal congestion and Reports nasal discharge Cardiovascular Cardiovascular: Reports system reviewed and no additional complaints, except as documented and Reports as per HPI Respiratory Respiratory: Reports system reviewed and no additional complaints, except as documented, Reports as per HPI, Denies shortness of breath and Reports cough Gastrointestinal Gastrointestingal: Reports system reviewed and no additional complaints, except as documented and as per HPI Neurologic Neurologic: Reports headache(s) Physical Exam General General appearance: alert and in no apparent distress ENT ENT exam: Present mucous membranes moist Expanded ENT Exam Nose exam: Present sinus tenderness Throat exam: Present other (Pharyngeal erythema noted with PND) Respiratory Respiratory exam: Present normal lung sounds bilaterally; Absent respiratory d istress or wheezes Cardiovascular Cardiovascular exam: Present regular rate, normal rhythm and normal heart sounds Abdominal Exam Abdominal exam: Present soft and normal bowel sounds; Absent distention or tenderness Neurological Exam Neurological exam: Present alert, oriented X3 and normal gait Medical Decision Making [place] Inquiry Pt receiving controlled substance: No [place] was queried for this patient: No Vital Signs: 12/20/23 08:45 Temperature 98.9 F Temperature Source Oral Pulse Rate [Left Brachial] 106 H Respiratory Rate 21 Blood Pressure [Left Arm] 133/91 H Blood Pressure Mean [Left Arm] 105 Blood Pressure Source [Left Arm] Automatic Cuff Blood Pressure Position [Left Arm] Sitting 02 Sat by Pulse Oximetry 98 Oxygen Delivery Method Room Air Lab Data Lab results reviewed: Yes I reviewed the patient's lab results.
[2023-12-20 09:04] LABS: UTC Influenza A Antigen Negative (Negative); UTC Influenza B Antigen Negative (Negative)
[2023-12-20 09:16] VITALS: BP 133/91; PULSE 106; RESP 21; TEMP 37.2; O2SAT 98
== END 2023-12-20 09:18 | disposition home or self-care (01) ==
PROVIDERS: Emergency Provider Nurse Practitioner
DX: J01.90 Acute sinusitis, unspecified (principal); R51.9 Headache, unspecified; R50.9 Fever, unspecified; R05.9 Cough, unspecified; M79.18 Myalgia, other site; R09.81 Nasal congestion; F17.290 Nicotine dependence, other tobacco product, uncomplicated
CPT/HCPCS: 87804; 99212; 99214; G0463

== ENCOUNTER 2024-01-06 18:07 | Emergency (ER) | payer OTHER, SELFPAY ==
[2024-01-06 18:10] VITALS: BP 141/90; PULSE 114; RESP 18; TEMP 37; O2SAT 98; BMI 28.2
[2024-01-06 18:19] VITALS: BP 141/90; PULSE 114; RESP 18; TEMP 37; O2SAT 98
--- NOTE | 2024-01-06 18:36 | ED_ITS ---
Discharge Plan Disposition Patient Disposition: Home, Self-Care Condition: Good Prescriptions Prescriptions: New ondansetron 4 mg Tablet,Disintegrating 4 mg PO Q8H PRN (Reason: Nausea) Qty: 12 0RF Referrals Follow up/Referrals: Provider,Referral, MD [Primary Care Provider] - See instructions Activity Restrictions/Add. Instructions Additional Instructions/Restrictions: Drink plenty of fluids. Take tylenol for pain or fever. Take the medications as directed. Follow up with your regular doctor. GO TO THE ER FOR ANY WORSENING SYMPTOMS If your symptoms worsen please return to the ER, especially if you have worsening abdominal pain. Clinical Impressions Clinical Impression: Gastroenteritis Instructions Patient Instructions: DI for Viral Gastroenteritis -- Adult, Viral Gastroenteritis, Ondansetron Discharge ED Provider: Adilson Agarwal [facility] General Stated complaint: n/v Mode of Arrival: Ambulatory Source of Information: Patient Limitations: No Limitations Time Seen by Provider: 01/06/24 18:36 Description of Symptoms (Recalled from Triage Doc. by RN): PATIENT C/O VOMITING AND STOMACH ACHE SINCE LAST NIGHT HEENT Symptoms (Recalled from RN notes): No Resp Symptoms (Recalled from RN notes): No Skin Symptoms (Recalled from RN notes): No MS Symptoms (Recalled from RN notes): No Functional Status (Recalled from RN notes): WNL History of Present Illness Provider Complaint: He states that he has had gi upset, nausea/vomiting/diarrhea since last night. He has been exposed to stomach virus in his home. Related Data Previous Rx's Medication Instructions Recorded ondansetron 4 mg disintegrating 4 mg PO Q8H PRN Nausea #12 tabs 01/06/24 tablet Allergies Allergy/AdvReac Type Severity Reaction Status Date / Time No Known Allergies Allergy Verified 02/16/23 13:32 Worker's Comp Is this a Worker's Comp case?: No [facility] Disclaimer: The information contained in this section may have been updated after the patient was seen, as this information can be updated by other users. Medical History (Updated 01/06/24 @ 18:45 by Adilson Agarwal APRN) Asthma Hx of fracture of femur PTSD (post-traumatic stress disorder) Social History (Updated 07/23/23 @ 03:58 by Ingrid De La Torre RN) Smoking Status: Current every day smoker tobacco type: smokeless tobacco alcohol intake: never substance use type: denies use current occupational status: other Travel in the last 8 weeks: None household members: spouse and children housing: house ROS Obtained: Yes All systems reviewed & no additional complaints except as documented Constitutional Constitutional: Denies chills, Denies fever(s) and Reports poor appetite ENT Ears, Nose, Mouth, and Throat: Denies dizziness and Denies sore throat Cardiovascular Cardiovascular: Denies dyspnea Respiratory Respiratory: Denies chest congestion, Denies cough and Denies dyspnea Gastrointestinal Gastrointestingal: Reports as per HPI, cramping, diarrhea, nausea and vomiting; Denies abdominal pain Musculoskeletal Musculoskeletal: Denies arthralgias Integumentary/Breasts Skin/Breast: Denies rash Neurologic Neurologic: Denies dizziness Physical Exam General General appearance: alert and in no apparent distress Head Head exam: atraumatic and normocephalic Eye Eye exam: Present normal appearance, PERRL and EOMI ENT ENT exam: Present normal exam, normal oropharynx, mucous membranes moist, TM's normal bilaterally and normal external ear exam Neck Neck exam: Present normal inspection, full ROM and trachea midline; Absent tenderness, meningismus or lymphadenopathy Chest Chest inspection: Present normal inspection and symmetric chest wall rise; Absent tenderness, rash or abscess Respiratory Respiratory exam: Present normal lung sounds bilaterally; Absent respiratory distress, wheezes or stridor Cardiovascular Cardiovascular exam: Present regular rate and normal rhythm; Absent irregular rhythm, systolic murmur, diastolic murmur or JVD Abdominal Exam Abdominal exam: Present soft and hyperactive bowel sounds; Absent distention, tenderness, guarding, rebound, rigidity, psoas sign, obturator sign, heel tap sign, Anderson's sign, Rovsing's sign or tenderness at McBurney's Point Extremities Exam Extremities exam: Present normal inspection and full ROM; Absent tenderness Back Exam Back exam: Present normal inspection and full ROM; Absent tenderness, CVA tenderness (R) or CVA tenderness (L) Neurological Exam Neurological exam: Present alert, oriented X3 and CN II-XII intact Psychiatric Psychiatric exam: Present normal affect and normal mood Skin Skin exam: Present warm, dry, intact and normal color Lymphatic Lymphatic Findings: no adenopathy Medical Decision Making Medical Records Medical records reviewed: No I reviewed the patient's medical records. [place] Inquiry Pt receiving controlled substance: No Vital Signs: 01/06/24 18:10 01/06/24 18:19 Temperature 98.6 F 98.6 F Temperature Source Oral Pulse Rate 114 H Pulse Rate [Left Brachial] 114 H Respiratory Rate 18 18 Blood Pressure 141/90 H Blood Pressure [Left Arm] 141/90 H Blood Pressure Mean [Left Arm] 107 Blood Pressure Source [Left Arm] Automatic Cuff Blood Pressure Position [Left Arm] Sitting 02 Sat by Pulse Oximetry 98 Oxygen Delivery Method Room Air
== END 2024-01-06 18:48 | disposition home or self-care (01) ==
PROVIDERS: Emergency Provider Nurse Practitioner Family
DX: A08.8 Other specified intestinal infections (principal); R11.2 Nausea with vomiting, unspecified; R19.7 Diarrhea, unspecified; F17.290 Nicotine dependence, other tobacco product, uncomplicated
CPT/HCPCS: 99212; 99214; G0463

== ENCOUNTER 2024-02-28 23:45 | Emergency (ER) | payer OTHER, SELFPAY ==
[2024-02-28 23:47] VITALS: BP 154/76; PULSE 95; RESP 18; TEMP 36.8; O2SAT 97; BMI 28.2
[2024-02-29 00:12] LABS: Basophils # 0.1 K/mm3 (0-0.2); Eosinophils # 0.2 K/mm3 (0.0-0.4); Eosinophils % 4.2 % (0.1-12.0); Hematocrit 41.7 % (42.0-52.0); Hemoglobin 14.1 g/dL (14.1-18.0); Lymphocytes # 1.4 K/mm3 (0.7-4.5); Lymphocytes % 24.4 % (10-50); Mean Corpuscular HGB Conc 33.9 g/dL (31.8-35.4); Mean Corpuscular Hemoglobin 31.6 pg (27.0-31.2); Mean Corpuscular Volume 93.3 fl (80-94); Mean Platelet Volume 8.5 fl (7.4-10.4); Monocytes # 0.3 K/mm3 (0.1-1.0); Monocytes % 5.2 % (1.7-9.3); Neutrophils # 3.8 K/mm3 (1.8-7.8); Neutrophils % 65.1 % (37.0-80.0); Platelet Count 128 K/mm3 (142-424); Red Blood Count 4.47 M/mm3 (4.60-6.20); Red Cell Distribution Width 13.1 % (11.5-17.5); White Blood Count 5.8 K/mm3 (4.8-10.8)
--- NOTE | 2024-02-29 00:15 | HMH.EDGENADL ---
Discharge Plan Disposition Patient Disposition: Home, Self-Care Condition: Good Prescriptions Prescriptions: New sulfamethoxazole-trimethoprim 800-160 mg tablet 1 tab PO BID 7 Days Qty: 14 0RF mupirocin 2 % ointment 1 applic topical BID Qty: 22 0RF No Action Vraylar 1.5 mg capsule 1.5 mg PO DAILY Qty: 30 2RF trazodone 50 mg tablet 50 mg PO DAILY Qty: 30 2RF Referrals Follow up/Referrals: Diego Sanchez DO [Primary Care Provider] - See instructions Activity Restrictions/Add. Instructions Additional Instructions/Restrictions: You were evaluated in the ER. You are appropriate for discharge at this time. Take the prescribed trimethoprim?sulfamethoxazole as directed, do not skip doses, do not stop taking it early. Apply the mupirocin cream twice daily for 7 days as well. I recommend wearing a large Band-Aid over this wound to keep it clean and keep the ointment in place. You can shower/bathe as normal. Avoid shaving this area. Do not apply other ointments or creams to the wound. Do not pick at or pinch the wound. Take Tylenol or ibuprofen if needed for pain or fever. Start taking your Vraylar again as soon as you have the prescription. Make an appointment with your primary care physician for reevaluation in 2 to 3 days. Return to the ER with any new, worsening, or otherwise concerning symptoms including but not limited to difficulty breathing, difficulty swallowing, pain with turning the head, or worsening appearance of the wound, as discussed. Clinical Impressions Clinical Impression: Cellulitis, Abscess of skin of neck Discharge ED Provider: Priti Jacobsen Adult [facility] General Chief complaint: Skin/Abscess/Foreign Body Stated complaint: lesion on neck, confusion, dizziness, cold sweat Time Seen by Provider: 02/28/24 23:54 Mode of Arrival: Ambulatory Source of Information: Patient and Relative Limitations: No Limitations Description of Symptoms (Recalled from ER Triage Doc. by RN): Patient reports on Tuesday he noted an infected hair on the left side of his neck. He popped the head and some drainage came out. He cleaned the area with peroxide and alcohol and let it drain. It has gotten larger and became reddened. Patient denies pain and itching to the area. Patient does report that he had an episode today around 5:30pm of chills and diaphoresis with some confusion . He states that he seen police drive by his house, but his spouse stated that it was not there. Patient reports that he has not had another episode since. History of Present Illness HPI narrative: 28-year-old male presents to the ER with concerns of lesion on the left side of his neck. Patient states it presented on Tuesday and had a head on it so he popped it. He describes yellow puslike substance draining from it on Tuesday. He states since that time it has gotten larger and become more red. It does not itch. This evening patient had chills and sweats with some reported confusion reported by family at bedside. Reportedly he had a hallucination of police driving by, family states police were not there, patient believes he saw them. He is not having any hallucinations at this time. No SI or HI. Patient denies any IV drug use. He states he is not having any difficulty breathing, swallowing, or pain with turning his neck. Related Data Previous Rx's Medication Instructions Recorded cariprazine 1.5 mg capsule 1.5 mg PO DAILY #30 caps 01/19/24 (Vraylar) trazodone 50 mg tablet 50 mg PO DAILY #30 tabs 01/19/24 mupirocin 2 % topical ointment 1 applic topical BID #22 grams 02/29/24 sulfamethoxazole 800 1 tab PO BID 7 days #14 tabs 02/29/24 mg-trimethoprim 160 mg tablet Allergies Allergy/AdvReac Type Severity Reaction Status Date / Time No Known Allergies Allergy Verified 01/19/24 14:55 [facility] Disclaimer: The information contained in this section may have been updated after the patient was seen, as this information can be updated by other users. Medical History (Updated 02/29/24 @ 00:30 by Priti Jacobsen MD) Hx of fracture of femur PTSD (post-traumatic stress disorder) Asthma Social History (Updated 07/23/23 @ 03:58 by Ingrid De La Torre RN) Smoking Status: Never smoker alcohol intake: never substance use type: denies use current occupational status: other Travel in the last 8 weeks: None household members: spouse and children housing: house ROS Obtained: Yes All systems reviewed & no additional complaints except as documented Constitutional Constitutional: Reports chills Comments: Isolated episode of diaphoresis ENT Ears, Nose, Mouth, and Throat: Denies dysphagia and Denies neck pain Cardiovascular Cardiovascular: Denies dyspnea Respiratory Respiratory: Denies dyspnea Gastrointestinal Gastrointestingal: Denies dysphagia Musculoskeletal Musculoskeletal: Denies neck pain Integumentary/Breasts Skin/Breast: Reports wounds (Raised wound on the left side of the neck with redness) Physical Exam General General appearance: alert and in no apparent distress Head Head exam: atraumatic and normocephalic Eye Eye exam: Present PERRL and EOMI ENT ENT exam: Present mucous membranes moist Neck Neck exam: Present full ROM, trachea midline and other (2cm diameter erythematous raised lesion overlying the left sternocleidomastoid approximately midway between the clavicle and mastoid. Trace surrounding induration, blanching lesion, open wound at the center of it, no eschar, no purulent drainage able to be expressed at this time); Absent tenderness Expanded Neck Exam Comment: Lesion does not feel attached to any underlying structures, it is not causing any mass effect on the neck, patient tolerating secretions well, no stridor Respiratory Respiratory exam: Absent respiratory distress or stridor Cardiovascular Cardiovascular exam: Present regular rate and normal rhythm Extremities Exam Extremities exam: Present full ROM Neurological Exam Neurological exam: Present alert and oriented X3; Absent motor sensory deficit Psychiatric Psychiatric exam: Present normal affect and normal mood Skin Skin exam: Present warm and dry Medical Decision Making [place] Inquiry Pt receiving controlled substance: No Vital Signs: 02/28/24 23:47 02/29/24 00:41 Temperature 98.2 F 98.2 F Temperature Source Oral Oral Pulse Rate 87 Pulse Rate [Left Radial] 95 H Respiratory Rate 18 16 Blood Pressure 149/72 H Blood Pressure [Right Arm] 154/76 H Blood Pressure Mean [Right Arm] 102 02 Sat by Pulse Oximetry 97 Oxygen Delivery Method Room Air Lab Data Lab Results 02/28/24 23:55: WBC 5.8, RBC 4.47 L, Hgb 14.1, Hct 41.7 L, MCV 93.3, MCH 31.6 H, MCHC 33.9, RDW 13.1, Plt Count 128 L, MPV 8.5, Neut % (Auto) 65.1, Lymph % (Auto) 24.4, Rincon % (Auto) 5.2, Eos % (Auto) 4.2, Baso % (Auto) 1.0, Neut # (Auto) 3.8, Lymph # (Auto) 1.4, Rincon # (Auto) 0.3, Eos # (Auto) 0.2, Baso # (Auto) 0.1, PT 10.6, INR 0.98, Sodium 136, Potassium 3.9, Chloride 101, Carbon Dioxide 31 H, Anion Gap 7.9, BUN 9, Creatinine 0.80, Estimated Creat Clear 156, Estimated GFR 116, Est GFR ( Amer) 140, Glucose 113 H, Calcium 9.2, Total Bilirubin 0.5, AST 41, ALT 27, Alkaline Phosphatase 73, C-Reactive Protein 5.5 H, Total Protein 6.6, Albumin 4.3, Globulin 2.3, Albumin/Globulin Ratio 1.9 H 02/28/24 23:55 02/28/24 23:55 Orders (Tests/Meds): ED MEDICATIONS Discontinued Medications Generic Name Dose Route Start Last Admin Trade Name Freq PRN Reason Stop Dose Admin Acetaminophen 1,000 mg 02/28/24 23:54 02/29/24 00:16 Acetaminophen 500mg Tab PO 02/28/24 23:55 1,000 mg ONCE ONE Administration Trimethoprim/Sulfamethoxazole 1 each 02/29/24 00:30 02/29/24 00:35 Sulfa/Trimethoprim 1 Tablet PO 02/29/24 00:31 1 each ONCE ONE Administration ORDERS Category Date Time Status POCUS Point of Care (ER Only) Stat Exams 02/28/24 23:54 Taken CBC w/Auto Diff [Complete Blood Count Auto Diff] Stat Lab 02/28/24 23:55 Completed CMP [Comprehensive Metabolic Panel] Stat Lab 02/28/24 23:55 Completed CRP [C-Reactive Protein] Stat Lab 02/28/24 23:55 Completed PT INR [Prothrombin Time INR] Stat Lab 02/28/24 23:55 Completed Medical Decision Narrative: In summary, this 28year old male presents to the emergency department today with concerns of lesion on the left side of the neck, also had diaphoresis, chills, possible hallucination earlier tonight. On initial evaluation patient is hemodynamically stable, afebrile, no stridor, tolerating secretions well, 2 cm erythematous raised lesion on the left side of the neck as described in physical exam. Differential diagnosis includes but is not limited to abscess, cellulitis, I considered foreign body but patient denies any trauma. Patient does have a history of overdose so I have increased suspicion for this being a lesion related to IV drug use, however patient denies any illicit substance use recently. Patient states he went on [employer] and was concerned for having sepsis. He does not meet SIRS criteria, he does not have sepsis clinically. based on these concerns, I ordered basic labs to evaluate for signs of systemic inflammation, [id number] ultrasound. Labs were reviewed and demonstrate no leukocytosis, no anemia, mild thrombocytopenia, PT/INR normal, CMP without findings of kidney or liver dysfunction, no actionable electrolyte abnormalities, CRP only slightly elevated at 5.5. Labs are overall reassuring against significant systemic disease. [id number] ultrasound personally performed and interpreted demonstrates localized superficial soft tissue infection, only trace fluid collection, given the location and scant amount of fluid identified on ultrasound I do not believe it is worth the risks of attempting to further drain the lesion. Patient was prescribed Bactrim. He received 1 dose in the ER. I also prescribed mupirocin for topical application. Patient was given instructions on symptomatic management, wound care, follow up instructions, and strict return precautions for the emergency department. Patient indicated understanding and was discharged in stable condition. Procedures Miscellaneous Procedure Procedure Performed: Indication: Soft tissue redness, swelling Identified structures: Left lateral neck Location: Left neck wound Findings: Area of swelling approximately 2 cm in total, trace fluid concerning for possible very small abscess, less than 1 cm, mild associated surrounding cobblestoning consistent with cellulitis. Abnormalities are isolated to the skin, do not invade these SCM muscle or other deep structures Impression: Trace abscess, cellulitis Images were saved to the permanent archive. The study was technically adequate. Soft tissue CPT codes Neck: 33879-30 This study was performed by me, and I personally interpreted all images/videos. Based on my clinical judgment, these images were adequate and did not necessitate further imaging. Critical Care Critical Care Time Critical Care Time: No
[2024-02-29] MEDS: ACETAMINOPHEN 500MG TAB 1000 MG PO (00:16)
[2024-02-29 00:20] LABS: Alanine Aminotransferase 27 U/L (12-78); Albumin Level 4.3 g/dl (3.5-5.0); Albumin/Globulin Ratio 1.9 (1.1-1.8); Alkaline Phosphatase 73 U/L (38-126); Anion Gap 7.9 mEq/L (5-15); Aspartate Amino Transferase 41 U/L (17-59); Bilirubin,Total 0.5 mg/dl (0.2-1.3); Blood Urea Nitrogen 9 mg/dl (9-20); Calcium 9.2 mg/dl (8.4-10.2); Carbon Dioxide 31 mmol/L (22.0-30.0); Chloride 101 mmol/L (98-107); Creatinine Clearance Estimated 156 mL/min (50-200); Estimated Glomerular Filt Rate 116 ml/min (>60); GFR (African American) 140 ML/MIN (>60); Globulin 2.3 g/dL (1.3-3.2); Glucose 113 mg/dl (74-100); Potassium 3.9 mmoL/L (3.5-5.1); Sodium 136 mmol/L (136-145); Total Protein,Serum 6.6 g/dl (6.3-8.2)
[2024-02-29 00:21] LABS: INR 0.98 (0.9-1.1); Prothrombin Time 10.6 seconds (10.1-12.5)
[2024-02-29 00:26] LABS: C-Reactive Protein 5.5 mg/L (0-4)
[2024-02-29] MEDS: SULFA/TRIMETHOPRIM 1 TABLET 1 EACH PO (00:35)
[2024-02-29 00:41] VITALS: BP 149/72; PULSE 87; RESP 16; TEMP 36.8; O2SAT 98
== END 2024-02-29 00:42 | disposition home or self-care (01) ==
PROVIDERS: Emergency Provider Emergency Medicine; PCP Internal Medicine
DX: L02.11 Cutaneous abscess of neck (principal); L03.221 Cellulitis of neck; R68.83 Chills (without fever)
CPT/HCPCS: 80053; 85025; 85610; 86140; 99284

== ENCOUNTER 2024-06-12 15:12 | Outpatient (CLI) | payer OTHER, SELFPAY ==
[2024-06-12 18:38] LABS: Basophils % 0.6 % (0.1-2.0); Eosinophils # 0.2 K/mm3 (0.0-0.4); Eosinophils % 3.8 % (0.1-12.0); Hematocrit 44.5 % (42.0-52.0); Hemoglobin 15.3 g/dL (14.1-18.0); Lymphocytes # 1.4 K/mm3 (0.7-4.5); Lymphocytes % 26.4 % (10-50); Mean Corpuscular HGB Conc 34.3 g/dL (31.8-35.4); Mean Corpuscular Hemoglobin 32.1 pg (27.0-31.2); Mean Corpuscular Volume 93.6 fl (80-94); Mean Platelet Volume 9.5 fl (7.4-10.4); Monocytes # 0.3 K/mm3 (0.1-1.0); Monocytes % 5.8 % (1.7-9.3); Neutrophils # 3.3 K/mm3 (1.8-7.8); Neutrophils % 63.3 % (37.0-80.0); Platelet Count 162 K/mm3 (142-424); Red Blood Count 4.76 M/mm3 (4.60-6.20); Red Cell Distribution Width 13.3 % (11.5-17.5); White Blood Count 5.2 K/mm3 (4.8-10.8)
[2024-06-12 18:55] LABS: Alanine Aminotransferase 23 U/L (12-78); Albumin Level 4.4 g/dl (3.5-5.0); Albumin/Globulin Ratio 1.6 (1.1-1.8); Alkaline Phosphatase 64 U/L (38-126); Anion Gap 9.5 mEq/L (5-15); Aspartate Amino Transferase 30 U/L (17-59); Bilirubin,Total 0.7 mg/dl (0.2-1.3); Blood Urea Nitrogen 12 mg/dl (9-20); Calcium 9.7 mg/dl (8.4-10.2); Carbon Dioxide 28 mmol/L (22.0-30.0); Chloride 105 mmol/L (98-107); Estimated Glomerular Filt Rate 101 ml/min (>60); GFR (African American) 122 ML/MIN (>60); Globulin 2.7 g/dL (1.3-3.2); Glucose 76 mg/dl (74-100); Potassium 3.5 mmoL/L (3.5-5.1); Sodium 139 mmol/L (136-145); Total Protein,Serum 7.1 g/dl (6.3-8.2)
[2024-06-12 19:11] LABS: Free T4 (Free Thyroxine) 1.21 ng/dl (0.78-2.19)
[2024-06-12 19:23] LABS: Thyroid Stimulating Hormone 2.26 uIU/mL (0.465-4.68)
== END 2024-06-12 23:59 | disposition home or self-care (01) ==
LOC: LAB.DROPOF 06-13 15:12
PROVIDERS: PCP Nurse Practitioner Acute Care; Visit Provider Nurse Practitioner Acute Care
DX: R53.83 Other fatigue (principal); F43.10 Post-traumatic stress disorder, unspecified; F32.A Depression, unspecified; F41.9 Anxiety disorder, unspecified; I10 Essential (primary) hypertension
CPT/HCPCS: 80050; 80053; 84402; 84439; 84443; 85025

== ENCOUNTER 2024-06-19 09:57 | Emergency (ER) | payer OTHER, SELFPAY ==
[2024-06-19 10:10] VITALS: BP 143/83; PULSE 69; RESP 20; TEMP 36.6; O2SAT 98; BMI 23.6
--- NOTE | 2024-06-19 10:18 | XR_ITS ---
FINAL REPORT TECHNIQUE: 3 views CLINICAL HISTORY: PAIN, NO INJURY COMPARISON: None FINDINGS: AP, lateral, and swimmer's views of the thoracic spine were obtained. There is no prior exam for comparison. There is no acute fracture or malalignment. Vertebral body height is preserved. Paraspinal soft tissues are within normal limits. IMPRESSION: No acute process. Reviewed, Interpreted and Dictated by Juan Manuel Fair III, MD Transcribed by Sherrie Hernandez Authenticated and [facility]
--- NOTE | 2024-06-19 10:49 | ED_ITS ---
Discharge Plan Disposition Patient Disposition: Home, Self-Care Condition: Good Prescriptions Prescriptions: New etodolac 200 mg capsule 200 mg PO Q8H PRN (Reason: pain) Qty: 20 0RF cyclobenzaprine 10 mg tablet 10 mg PO TID PRN (Reason: muscle spasm) Qty: 12 0RF lidocaine [Lidocaine Pain Relief] 4 % adhesive patch,medicated 1 patch topical DAILY PRN (Reason: pain) Qty: 10 0RF Rx Instructions: apply patch leave on for 12 hours then remove patch and leave off for 12 hours No Action quetiapine 100 mg tablet 100 mg PO DAILY lamotrigine 25 mg tablet 25 mg PO DAILY mirtazapine 15 mg tablet 15 mg PO DAILY sertraline 50 mg tablet 50 mg PO DAILY Referrals Follow up/Referrals: Medardo Brown APRN [Primary Care Provider] - See instructions Activity Restrictions/Add. Instructions Additional Instructions/Restrictions: *Etodolac michaelle 8 hours with meal as needed for pain/inflammation *Remember you had a Toradol shot in the clinic today, which is similar to Etodolac so do not start until later tonight *Not additional anti-inflammatory like Ibuprofen motrin, aleve, advil with the above amount of Etodolac. You can still take Tylenol every 4 hours as needed if you need something else for pain *Ice 20 minutes every 2 hours for the first 48 hours after the initial injury followed by moist heat every 20 minutes 3-4 times a day to affected area *Muscle relaxer every 8 hours as needed for muscle spasms but remember, it WILL cause drowsiness You cannot take it and drive, operate machinery or care for small children. *Keep this area active, no movement leads to more stiffness, However take it easy and avoid heavy lifting pushing or pulling *Follow up with you family doctor if no improvement for further treatment Clinical Impressions Clinical Impression: Muscle spasm Instructions Patient Instructions: DI for Thoracic Back Pain, DI for Muscle Spasm Print Language Print Language: [place] Discharge ED Provider: Esther Chow [facility] Stated complaint: back pain, no inj Mode of Arrival: Ambulatory Source of Information: Patient Limitations: No Limitations Time Seen by Provider: 06/19/24 10:20 Description of Symptoms (Recalled from Triage Doc. by RN): PATIENT C/O PAIN TO MIDDLE OF BACK THAT STARTED YESTERDAY, NO KNOWN INJURY HEENT Symptoms (Recalled from RN notes): No Resp Symptoms (Recalled from RN notes): No Skin Symptoms (Recalled from RN notes): No MS Symptoms (Recalled from RN notes): Yes Functional Status (Recalled from RN notes): WNL History of Present Illness Provider Complaint: Patient states that he was walking through the yard yesterday swinging his arms from back to front and started having pain in the middle of his back States that is its sharp at times an feels like it takes his breath with certain movements Denies falling or known injury and today it was still bothering him when he would move certain ways so he came in to get it checked Denies radiation of pain and denies loss of control of bowel or bladder Related Data Home Medications ?Medication ?Instructions ?Recorded ?Confirmed lamotrigine 25 mg tablet 25 mg PO DAILY 06/19/24 06/19/24 mirtazapine 15 mg tablet 15 mg PO DAILY 06/19/24 06/19/24 quetiapine 100 mg tablet 100 mg PO DAILY 06/19/24 06/19/24 sertraline 50 mg tablet 50 mg PO DAILY 06/19/24 06/19/24 Previous Rx's ?Medication ?Instructions ?Recorded cyclobenzaprine 10 mg tablet 10 mg PO TID PRN muscle spasm #12 06/19/24 tabs etodolac 200 mg capsule 200 mg PO Q8H PRN pain #20 caps 06/19/24 lidocaine 4 % topical patch 1 patch topical DAILY PRN pain #10 06/19/24 (Lidocaine Pain Relief) ea Allergies Allergy/AdvReac Type Severity Reaction Status Date / Time No Known Allergies Allergy Verified 06/08/24 14:38 Worker's Comp Is this a Worker's Comp case?: No [facility] Disclaimer: The information contained in this section may have been updated after the patient was seen, as this information can be updated by other users. Medical History (Updated 06/19/24 @ 12:16 by Esther Chow APRN) Hx of fracture of femur PTSD (post-traumatic stress disorder) Asthma Surgical History (Updated 06/12/24 @ 12:05 by Isadora Figueredo LPN) H/O elbow surgery History of surgery on lower extremity Family History (Updated 06/12/24 @ 12:05 by Isadora Figueredo LPN) Grandfather Cancer Grandmother Cancer Social History Smoking Status: Never smoker alcohol intake: never substance use type: denies use current occupational status: other Travel in the last 8 weeks: None household members: spouse and children housing: house ROS Obtained: Yes All systems reviewed & no additional complaints except as documented and Yes Systems reviewed as appropriate & no additional complaints except as documented Constitutional Constitutional: Reports system reviewed and no additional complaints, except as documented, Reports as per HPI and Denies fever(s) ENT Ears, Nose, Mouth, and Throat: Reports system reviewed and no additional complaints, except as documented and Reports as per HPI Cardiovascular Cardiovascular: Reports system reviewed and no additional complaints, except as documented and Reports as per HPI Respiratory Respiratory: Reports system reviewed and no additional complaints, except as documented and Reports as per HPI Gastrointestinal Gastrointestingal: Reports system reviewed and no additional complaints, except as documented and as per HPI Musculoskeletal Musculoskeletal: Reports system reviewed and no additional complaints, except as documented, Reports as per HPI and Reports back pain Integumentary/Breasts Skin/Breast: Reports system reviewed and no additional complaints, except as documented and Reports as per HPI Physical Exam General General appearance: alert and in no apparent distress ENT ENT exam: Present mucous membranes moist Respiratory Respiratory exam: Present normal lung sounds bilaterally; Absent respiratory distress or wheezes Cardiovascular Cardiovascular exam: Present regular rate, normal rhythm and normal heart sounds Back Exam Back exam: Present tenderness and muscle spasm Back 1 view image: 2 1. reports sharp catching like pain worse with movement no bruising or wound noted Denies loss of control of bowel or bladder Neurological Exam Neurological exam: Present alert, oriented X3 and normal gait Medical Decision Making [place] Inquiry Pt receiving controlled substance: No [place] was queried for this patient: No Vital Signs: 06/19/24 10:10 Temperature 97.9 F Temperature Source Oral Pulse Rate [Left Brachial] 69 Respiratory Rate 20 Blood Pressure [Left Arm] 143/83 H Blood Pressure Mean [Left Arm] 103 Blood Pressure Source [Left Arm] Automatic Cuff Blood Pressure Position [Left Arm] Sitting 02 Sat by Pulse Oximetry 98 Oxygen Delivery Method Room Air Orders (Tests/Meds): ORDERS Category Date Time Status XR thoracic spine 3V Stat Exams 06/19/24 10:18 Taken Radiology Data #1: Image(s): T-Spine Image Reviewed: Yes I have reviewed radiologist's interpretation IMPRESSION: No acute process. Medical Decision Narrative: medication discussed with pharmacy
[2024-06-19] MEDS: KETOROLAC 60MG/2ML VIAL 60 MG IM (12:00)
[2024-06-19] MEDS: METHYLPREDNISOLONE SOD SUCC 125MG VIAL 125 MG IM (12:00)
[2024-06-19 12:09] VITALS: BP 143/83; PULSE 69; RESP 20; TEMP 36.6; O2SAT 98
== END 2024-06-19 12:20 | disposition home or self-care (01) ==
PROVIDERS: Emergency Provider Nurse Practitioner; PCP Nurse Practitioner Family
DX: M62.830 Muscle spasm of back (principal)
CPT/HCPCS: 72072; 96372; 99212; 99214; G0463; J1885; J2919

== ENCOUNTER 2025-03-13 19:09 | Emergency (ER) | payer OTHER, SELFPAY ==
[2025-03-13 19:16] VITALS: BP 154/105; PULSE 108; RESP 16; TEMP 36.6; O2SAT 97; BMI 29.1
[2025-03-13 19:30] VITALS: BP 165/113; PULSE 102; RESP 15; O2SAT 97
[2025-03-13 20:00] VITALS: BP 135/90; PULSE 95; RESP 24; O2SAT 96
--- NOTE | 2025-03-13 20:02 | HMH.EDGENADL ---
Discharge Plan Disposition Patient Disposition: Home, Self-Care Prescriptions Prescriptions: No Action quetiapine [Seroquel] 200 mg tablet 200 - 300 mg PO HS Qty: 45 0RF sertraline 100 mg tablet 100 mg PO DAILY Qty: 30 0RF Referrals Follow up/Referrals: Medardo Brown APRN [Primary Care Provider] - See instructions Activity Restrictions/Add. Instructions Additional Instructions/Restrictions: You have extensive right lower extremity cellulitis and were given a medication called dalbavancin to attempt to keep you from hospitalization. You should see improvement in 48 to 72 hours if the redness spreads beyond your knee or if you run a very high fever or feeling systemically ill please return to the emergency department otherwise you should see a significant improvement in your symptoms. If you are not improving during that time. I also recommend you follow-up with your primary care doctor or return to the emergency department. Clinical Impressions Clinical Impression: Cellulitis of leg, right Instructions Patient Instructions: DI for Skin Abscess Print Language Print Language: Spanish Discharge ED Provider: David Goodman General Adult HPI General Chief complaint: Skin/Abscess/Foreign Body Stated complaint: right leg pain and swelling Time Seen by Provider: 03/13/25 19:26 Mode of Arrival: Ambulatory Source of Information: Patient Description of Symptoms (Recalled from ER Triage Doc. by RN): Patient was weedeating 2 days ago, states something bit him, now area is red/swollen (right leg) History of Present Illness HPI narrative: Patient is a 29-year-old male presents today with right lower extremity pain and redness. This started 2 days ago when he was weed eating and felt something cause immediate pain in the anterior proximal aspect of his right tibia. Did not see a definitive bug nor did he see definitive traumatic accident with weed eating. No fevers or chills but he does have significant pain and swelling in this region. Related Data Previous Rx's ?Medication ?Instructions ?Recorded quetiapine 200 mg tablet (Seroquel) 200 - 300 mg (1 - 1.5 x 200 mg) PO 02/15/25 HS #45 tabs sertraline 100 mg tablet 100 mg PO DAILY #30 tabs 02/15/25 Allergies Allergy/AdvReac Type Severity Reaction Status Date / Time No Known Allergies Allergy Verified 10/29/24 15:20 [facility] Disclaimer: The information contained in this section may have been updated after the patient was seen, as this information can be updated by other users. Medical History Hx of fracture of femur Jacob in placve, Left PTSD (post-traumatic stress disorder) Asthma Surgical History H/O elbow surgery History of surgery on lower extremity Family History Grandfather Cancer Grandmother Cancer Social History Smoking Status: Never smoker alcohol intake: never substance use type: denies use current occupational status: other Travel in the last 8 weeks?: None household members: spouse and children housing: house Have you lived/traveled outside US in past 30 days?: No Contact w/someone who lives/traveled outside US past 30 days?: No Exposure to someone with infectious disease in past 14 days?: No Do you have a fever (greater than 100.4 F or 38 C)?: No Have you tested positive for COVID-19?: No Exposed to someone with COVID-19 in past 14 days?: No Do you have a sore throat?: No Do you have a cough?: No Do you have any weakness?: No Do you have any diarrhea?: No Are you experiencing any unusual bleeding?: No Do you have any muscle aches/pain?: No Do you have any abdominal pain?: No Are you experiencing loss of taste or smell?: No Other Medical History Have you received the Flu Vaccine for this season: No Have you received the Pneumonia Vaccine: No ROS Obtained: Yes All systems reviewed & no additional complaints except as documented Physical Exam General General appearance: alert and in no apparent distress Respiratory Respiratory exam: Present normal lung sounds bilaterally Cardiovascular Cardiovascular exam: Present regular rate Expanded Lower Extremity Exam Right: Leg image: 1. erythema, swelling warmth 2. central area of necrosis Neurological Exam Neurological exam: Present alert and oriented X3 Medical Decision Making Medical Records Screening: Per USPSTF and CDC recommendations, given the prevalence of disease in our region, it is our hospital?s policy to screen for HIV and viral Hepatitis for all patients aged 18 and over and those with ongoing risk factors. [place] Inquiry Pt receiving controlled substance: No Vital Signs: 03/13/25 19:16 03/13/25 19:30 03/13/25 20:00 Temperature 97.9 F Temperature Source Oral Pulse Rate 102 H 95 H Pulse Rate [Right Radial] 108 H Respiratory Rate 16 15 24 Blood Pressure 165/113 H 135/90 Blood Pressure [Right Arm] 154/105 H Blood Pressure Mean [Right Arm] 121 Blood Pressure Source [Right Arm] Automatic Cuff Blood Pressure Position [Right Arm] Supine 02 Sat by Pulse Oximetry 97 97 96 Oxygen Delivery Method Room Air Room Air Room Air Lab Data Lab results reviewed: Yes I reviewed the patient's lab results. Lab Results 03/13/25 19:57: WBC 8.8, RBC 4.98, Hgb 15.8, Hct 44.9, MCV 90.2, MCH 31.7 H, MCHC 35.2, RDW 12.0, Plt Count 134 L, MPV 10.5 H, Neut % (Auto) 80.5 H, Lymph % (Auto) 12.8, Archer % (Auto) 5.3, Eos % (Auto) 0.9, Baso % (Auto) 0.3, Neut # (Auto) 7.1, Lymph # (Auto) 1.1, Archer # (Auto) 0.5, Eos # (Auto) 0.1, Baso # (Auto) 0.0, Sodium 139, Potassium 3.8, Chloride 105, Carbon Dioxide 30, Anion Gap 7.8, BUN 9, Creatinine 0.80, Estimated Creat Clear 154, Estimated GFR 115, Est GFR ( Amer) 139, Glucose 101 H, Calcium 10.1, Total Bilirubin 0.4, AST 30, ALT 24, Alkaline Phosphatase 90, Total Protein 7.8, Albumin 4.9, Globulin 2.9, Albumin/Globulin Ratio 1.7 03/13/25 19:57 03/13/25 19:57 Orders (Tests/Meds): ED MEDICATIONS Generic Name Dose Route Start Last Admin Trade Name Freq PRN Reason Stop Dose Admin Lactated Ringer's 1,000 mls @ 999 mls/hr 03/13/25 20:00 03/13/25 20:09 Lactated Ringer's 1000 Ml Bag IV 03/13/25 21:00 999 mls/hr .Q1H1M JERZY Administration Discontinued Medications Generic Name Dose Route Start Last Admin Trade Name Magda PRN Reason Stop Dose Admin Dalbavancin 1,500 mg/ Dextrose 250 mls @ 500 mls/hr 03/13/25 19:52 03/13/25 20:09 IV 03/13/25 19:53 500 mls/hr ONCE ONE Administration Ketorolac Tromethamine 15 mg 03/13/25 19:52 03/13/25 20:08 Ketorolac 30mg/Ml Vial IV 03/13/25 19:53 15 mg ONCE ONE Administration ORDERS Category Date Time Status POCUS Point of Care (ER Only) Stat Exams 03/13/25 19:42 Ordered CBC w/Auto Diff [Complete Blood Count Auto Diff] Stat Lab 03/13/25 19:57 Completed CMP [Comprehensive Metabolic Panel] Stat Lab 03/13/25 19:57 Completed Blood Culture Stat Micro 03/13/25 20:06 Received Medical Decision Narrative: 29-year-old with above history and physical. Has extensive cellulitis in the right lower extremity. He is not systemically ill at the moment. I do not suspect a necrotizing soft tissue infection either. The initial cause of this was likely trauma from either a projectile from weed eating or a bug bite introducing infection. Given the extent of this we discussed multiple options including oral antibiotics admission for IV antibiotics or IV dalbavancin. Given the fact that I was leaning towards admission or dalbavancin I felt along with the patient's wishes that tried to prevent hospitalization would be best. I do not believe that oral antibiotics would be appropriate for the extensive cellulitis that he currently has. Therefore cultures basic blood work IV fluids have been administered and will administer dalbavancin in the emergency department. He is aware will take 48 to 72 hours to see an improvement and that there is still some risk of failure. Reassessment 842 patient remains very stable labs essentially unremarkable there is a nonspecific mild thrombocytopenia which is likely secondary to localized or systemic infection but otherwise no significant abnormalities. No evidence of sepsis. Again not clinically concern for necrotizing soft tissue infection. Patient was given dalbavancin as stated above for extensive cellulitis with return precautions and follow-up instructions emphasized. He was discharged after dalbavancin was complete. Procedures Miscellaneous Procedure Procedure Performed: Limited soft tissue ultrasound Indication: Right lower extremity swelling erythema and pain Identified structures: Location: Right lower leg Findings: Extensive cobblestoning with no localize drainable fluid collection Impression: As above consistent with cellulitis without drainable abscess. Images were saved to permanent archive The study was technically adequate Soft Tissue CPT Codes: CPT Neck: 57227-76 CPT Upper extremity: 20527-12 CPT Axilla: 26232-30 CPT Chest wall: 73568-65 CPT Breast: 03289-64-PU/LT (complete), 62311-05-XZ/LT (limited), CPT Upper Back: 94480-26 CPT Lower Back: 19884-47 CPT Abdominal Wall: 40087-99 CPT Pelvic Wall: 60038-00 CPT Lower Extremity: 90243-29 CPT Other Soft Tissue: 78210-60 This study was performed by me, and I personally interpreted all images/videos. Based on my clinical judgement, these images were adequate and did not necessitate further imaging. Critical Care Critical Care Time Critical Care Time: Yes Attestation: On 03/13/25, the high probability of a clinically significant, sudden or life threatening deterioration of the following system(s) required my full and direct attention, intervention and personal management. The time I documented below is in addition to time spent performing reported procedures but includes the following listed in this critical care notation. Total Time Total Critical Care Time: 35
[2025-03-13] MEDS: KETOROLAC 30MG/ML VIAL 15 MG IV (20:08)
[2025-03-13] MEDS: DALBAVANCIN HCL 1,500 MG in DEXTROSE 5 % IN WATER 250 ML 500 MG IV (20:09)
[2025-03-13] MEDS: LACTATED RINGERS 1000ML 1,000 ML 999 ML IV (20:09)
[2025-03-13 20:14] LABS: Alanine Aminotransferase 24 U/L (12-78); Albumin Level 4.9 g/dl (3.5-5.0); Albumin/Globulin Ratio 1.7 (1.1-1.8); Alkaline Phosphatase 90 U/L (38-126); Anion Gap 7.8 mEq/L (5-15); Aspartate Amino Transferase 30 U/L (17-59); Bilirubin,Total 0.4 mg/dl (0.2-1.3); Blood Urea Nitrogen 9 mg/dl (9-20); Calcium 10.1 mg/dl (8.4-10.2); Carbon Dioxide 30 mmol/L (22.0-30.0); Chloride 105 mmol/L (98-107); Creatinine Clearance Estimated 154 mL/min (50-200); Estimated Glomerular Filt Rate 115 ml/min (>60); GFR (African American) 139 ML/MIN (>60); Globulin 2.9 g/dL (1.3-3.2); Glucose 101 mg/dl (74-100); Potassium 3.8 mmoL/L (3.5-5.1); Sodium 139 mmol/L (136-145); Total Protein,Serum 7.8 g/dl (6.3-8.2)
[2025-03-13 20:18] LABS: Basophils % 0.3 % (0.1-2.0); Eosinophils # 0.1 Kmm3 (0.0-0.4); Eosinophils % 0.9 % (0.1-12.0); Hematocrit 44.9 % (42.0-52.0); Hemoglobin 15.8 g/dL (14.1-18.0); Immature Granulocytes # 0.02 10^3uL; Immature Granulocytes % 0.2 %; Lymphocytes # 1.1 K/mm3 (0.7-4.5); Lymphocytes % 12.8 % (10-50); Mean Corpuscular HGB Conc 35.2 g/dL (31.8-35.4); Mean Corpuscular Hemoglobin 31.7 pg (27.0-31.2); Mean Corpuscular Volume 90.2 fl (80-94); Mean Platelet Volume 10.5 fl (7.4-10.4); Monocytes # 0.5 K/mm3 (0.1-1.0); Monocytes % 5.3 % (1.7-9.3); Neutrophils # 7.1 K/mm3 (1.8-7.8); Neutrophils % 80.5 % (37.0-80.0); Nucleated Red Blood Cells # 0 10^3/uL; Nucleated Red Blood Cells % 0 %; Platelet Count 134 K/mm3 (142-424); Red Blood Count 4.98 M/mm3 (4.60-6.20); Red Cell Distribution Width-SD 39.4 fL; White Blood Count 8.8 K/mm3 (4.8-10.8)
[2025-03-13 20:47] VITALS: BP 135/90; PULSE 98; RESP 20; TEMP 36.6; O2SAT 97
== END 2025-03-13 21:20 | disposition home or self-care (01) ==
PROVIDERS: Emergency Provider Student in an Organized Health Care Education/Training Program; PCP Nurse Practitioner Family
DX: L03.115 Cellulitis of right lower limb (principal); M79.604 Pain in right leg; R22.41 Localized swelling, mass and lump, right lower limb
CPT/HCPCS: 80053; 85025; 87040; 96361; 96374; 96375; 99284; J0875; J1885; J7060; J7120

== ENCOUNTER 2025-11-01 21:38 | Emergency (ER) | payer OTHER, SELFPAY ==
--- OUTSIDE RECORDS SUMMARY | 2025-10-24 11:15 | XMS_ITS | Continuity of Care Document ---
Author Organization [facility] Address [address] [place] [address] Phone Care Team Providers Care Integration Aide Name Role Phone Day MHA, Hilary Unavailable Unavailable Allergies, Adverse Reactions, Alerts Substance Reaction Status Criticality No Known Allergies Active No Inform ation Procedures Procedure Date PSYTX PT&/FAMILY 45 MINUTES Advance Directives Directive Yes / No Effective Date File Name No Information Encounters Encounter Description Practice Location Reason(s) For Visit Diagnoses Date Provider PSYTX PT&/FAMILY 45 MINUTES [facility], [address] [place] [address], [facility], tel:[phone] [place] Major depressive disorder, recurrent, moderateAmphetamine type substance use disorder, moderate Day Hilary. . [facility], [address] [place] [address], [facility], tel:[phone] [place] Major depressive disorder, recurrent, moderateAmphetamine type substance use disorder, moderate Day Hilary. . [facility], [address] [place] [address], [facility], tel:[phone] [place] Major depressive disorder, recurrent, moderate Day Hilary. . [facility], [address] [place] [address], [facility], tel:[phone] [place] Major depressive disorder, recurrent, moderateAmphetamine type substance use disorder, moderate Day Hilary. . [facility], [facility] [place], [place], [facility], tel:[phone] [address] Major depressive disorder, recurrent, moderateAmphetamine type substance use disorder, moderate Day Hilary. . Family History Family Member Type Diagnosis Age At Onset Sister Problem Substance abuse Mother Problem Depression Payers Payer name Insurance type Covered constitution party ID Mihai gaffney(s) [facility] Medicaid Aetna [facility] CI [id number] Social History Type Description Quantity Date Captured Comments Sex Male Smoking Status No Information Sexual Orientation Straight or heterosexual Oct Gender Identity Male Chief Complaint And Reason For Visit No Information History Of Present Illness Encounter Date Complaint History Of Prese nt Illness No Information Instructions Date Instruction Additional Infor mation No Information Assessments Type Assessment Date assessment Major depressive disorder, recur rent, moderate assessment Amphetamine type substance use d isorder, moderate
--- OUTSIDE RECORDS SUMMARY | 2025-11-01 22:14 | XMS_ITS | Clinical Summary ---
Author Organization [facility] Address [address] [place] [id number] Care Team Providers Care Upper And Bottom Lacer Hand Name Role Phone Que Morrison MD Primary Care Provider [phone] Source Comments [facility] is fully rolled out with thefollowing exceptions:[facility] Allergies No known active allergies Medications polyethylene glycol 3350 (MIRALAX) packet Take 1 Packet (17 gm total) by mouth 1 time daily. 14 Packet 0 06/05/2012 Active diazepam (VALIUM) 2 MG tablet Take 2 Tabs (4 mg total) by mouth every 6 hours as needed for muscle spasms. 30 Tab 0 06/05/2012 Active oxyCODONE (ROXICODONE) 5 MG tablet Take 1 Tab (5 mg total) by mouth every 4-6 hours as needed for pain. 30 Tab 0 06/05/2012 Active Active Problems Problem Noted Date Diagnosed Date Left hip pain 08/06/2014 Social History Tobacco Use Types Packs/Day Years Used Date Smoking Tobacco: Never Alcohol Use Standard Drinks/Week Comments No 0 (1 standard drink = 0.6 oz pur e alcohol) Sex and Gender Information Value Date Recorded Sex Assigned at Not on file Legal Sex Male 5:38 AM EST Gender Identity Not on file Sexual Orientation Not on file Last Filed Vital Signs Vital Sign Reading Time Taken Comments Blood Pressure 118/56 06/05/2012 8:38 AM EDT Pulse 66 06/05/2012 8:38 AM EDT Temperature 36.2 C (97.2 F) 06/05/2012 8:38 AM EDT Respiratory Rate 16 06/05/2012 8:38 AM EDT Oxygen Saturation 100% 06/05/2012 8:38 AM EDT Inhaled Oxygen Concentration - - Weight 65 kg (143 lb 4.8 oz) 06/03/2012 10:43 PM EDT Height 160 cm (5' 3 ) 06/04/2012 1:55 AM EDT Body Mass Index 25.38 06/03/2012 10:43 PM EDT Plan of Treatment Health Maintenance Due Date Last Done Comments MMR IMMUNIZATION (1 of 1 - S tandard series) 1997 DTAP/Tdap/Td IMMUNIZATION (1 - Tdap) 2003 Yearly Physical Ages 3-18+ 2007 VARICELLA IMMUNIZATION (1 of 2 - 13+ 2-dose series) 2009 HEPATITIS B IMMUNIZATION (1 of 3 - 19+ 3-dose series) 2015 AMB SEASONAL FLU VACCINE (#1) 07/08/2025 COVID-19 Vaccine (1 - 2024-2 6 season) 2025 HIB IMMUNIZATION Aged Out No longer e ligible based on patient's age to complete this topic HPV IMMUNIZATION (No Doses Required) Completed IPV IMMUNIZATION Aged Out No longer e ligible based on patient's age to complete this topic MCV4 IMMUNIZATION Aged Out No longer eligible based on patient's age to complete this topic MENINGOCOCCAL B VACCINE Aged Out No l onger eligible based on patient's age to complete this topic PNEUMOCOCCAL IMMUNIZATION Aged Out No longer eligible based on patient's age to complete this topic Respiratory Syncytial Virus (RSV) <20mo Aged Out No longer eligible b ased on patient's age to complete this topic Medical Devices Implanted Type Area Farmworker Machine Device Identifier Shelf Expiration Date Model / Serial / Lot Synthes 10mm Titanium Adolescent Lateral Entry Femoral Nail 360mm Left Implanted:Qty: 1 on 06/04/2012 by Tony Kaplan MD at [facility] Orthopedic Left: [employer] 10/07/2015 [id number] S / [id number] / [id number] Synthes 4.0mm Titanium Locking Screw With T25 Stardrive 38mm Femoral Im Nail Implanted:Qty: 1 on 06/04/2012 by Tony Kaplan MD at [facility] Orthopedic Left: [employer] 04/07/2020 [id number] / [id number] / [id number] Synthes 4.0mm Titanium Locking Screw With T25 Stardrive 60mm Femoral Im Nail Implanted:Qty: 1 on 06/04/2012 by Tony Kaplan MD at [facility] Orthopedic Left: Femur 06/07/2017 [id number] S / N/A / [id number] Synthes 4.0mm Titanium Locking Screw With T25 Stardrive 38mm Femoral Im Nail Implanted:Qty: 1 on 06/04/2012 by Tony Kaplan MD at [facility] Orthopedic Left: [employer] 11/07/2019 [id number] S / N/A / [id number] Synthes 4.0mm Titanium Locking Screw With T25 Stardrive 46mm Femoral Im Nail Implanted:Qty: 1 on 06/04/2012 by Tony Kaplan MD at [facility] Orthopedic Left: [employer] 12/08/2020 [id number] S / N/A / [id number] Insurance AETNA [facility] A[employer] [facility] Care Teams Upper And Bottom Lacer Hand Relationship Specialty Start Date End Date Que Morrison MD [address] [place] [address], [place] [address] PCP - General 06/03/12
== END 2025-11-01 22:24 | disposition left against medical advice (07) ==
LOC: ER 22:12
PROVIDERS: Emergency Provider Student in an Organized Health Care Education/Training Program
DX: Z53.21 Procedure and treatment not carried out due to patient leaving prior to being seen by health care provider (principal)
CPT/HCPCS: 99211